=== PATIENT | male | born 1965 | race Two or more races ===

== ENCOUNTER 2016-11-06 09:48 | Emergency (ER) | payer MEDICAID ==
[~2016-11-06] VITALS: Ht 177.8 cm; Wt 72.6 kg
[~2016-11-06 09:48] MED LIST: AMIT100T2 PO; CHOL20007 OR; GABA300C8 PO; LORA1TAB12 PO; NORT25CA PO; OXC300T PO; PANT1INJ3 PO; TRAM50TA2 PO
[2016-11-06] MEDS ORDERED: LORazepam 2MG/ML-1ML VIAL ONE (09:57)
[2016-11-06] MEDS ORDERED: LORazepam 2MG/ML-1ML VIAL IV ONE (10:15)
[2016-11-06 10:24] LABS: Basophils # (auto) 0 uL; Basophils % (auto) 0.6 % (0.0-2.0); Eosinophils # (auto) 0 uL; Hematocrit 42.4 % (41.0-53.0); Lymphocytes # (auto) 0.9 uL; Lymphocytes % (auto) 18.4 % (10.0-50.0); Mean Corpuscular Hemoglobin 31.7 pg (28.0-32.0); Mean Corpuscular Volume 96.1 fL (80.0-100.0); Mean Platelet Volume 6.8 fL (7.4-10.4); Monocytes # (auto) 0.3 uL; Monocytes % (auto) 5.5 % (0.0-12.0); Neutrophils # (auto) 3.7 uL; Neutrophils % (auto) 74.5 % (37.0-80.0); Platelet Count (auto) 437 10^3/uL (140-450); Red Cell Distribution Width 14.4 % (11.6-16.0); White Blood Cell 4.9 10^3/uL (4.4-10.8)
[2016-11-06 10:43] LABS: Albumin 3.3 g/dL (3.4-5.0); BUN/Creatinine Ratio 7.8; Bilirubin, Total 0.3 mg/dL (0.2-1.0); Potassium 4.2 mmol/L (3.5-5.1); Total Protein 7.6 g/dL (6.4-8.2)
[2016-11-06 11:07] VITALS: BP 163/108
== END 2016-11-06 13:21 | disposition home or self-care (01) ==
LOC: ER 09:48 → EDUNIT# 09:48 → ER 13:21
DX: R56.9 Unspecified convulsions (principal); E11.9 Type 2 diabetes mellitus without complications; Z90.89 Acquired absence of other organs; F17.210 Nicotine dependence, cigarettes, uncomplicated
CPT/HCPCS: 36415; 70450; 80053; 82962; 84484; 85025; 93005; 96374; 99285; J2060

== ENCOUNTER 2016-11-28 05:12 | Emergency (ER) | payer MEDICAID ==
[~2016-11-28] VITALS: Ht 177.8 cm; Wt 62.6 kg
[2016-11-28] MEDS ORDERED: ACCU-CHEK COMFORT CURVE STRIP VI ONE (05:30)
[2016-11-28 05:43] LABS: Urine RBC None Seen /hpf (0 - 3)
[2016-11-28 05:56] LABS: Basophils # (auto) 0 uL; Basophils % (auto) 0.4 % (0.0-2.0); Eosinophils # (auto) 0 uL; Eosinophils % (auto) 0.4 % (0.0-7.0); Hematocrit 44.7 % (41.0-53.0); Hemoglobin 14.3 g/dL (13.5-17.5); Lymphocytes # (auto) 0.9 uL; Lymphocytes % (auto) 9.6 % (10.0-50.0); Mean Corpuscular Hemoglobin 31.6 pg (28.0-32.0); Mean Corpuscular Hgb Conc. 32.1 g/dL (32.0-36.0); Mean Corpuscular Volume 98.3 fL (80.0-100.0); Mean Platelet Volume 7.3 fL (7.4-10.4); Monocytes # (auto) 0.5 uL; Monocytes % (auto) 5.3 % (0.0-12.0); Neutrophils # (auto) 7.5 uL; Neutrophils % (auto) 84.3 % (37.0-80.0); Platelet Count (auto) 595 10^3/uL (140-450); Red Cell Distribution Width 14.9 % (11.6-16.0); White Blood Cell 8.9 10^3/uL (4.4-10.8)
[2016-11-28 05:59] LABS: Urine Bilirubin Negative (Negative); Urine Blood Negative /uL (Negative); Urine Color Yellow (Yellow); Urine Ketone Negative (Negative); Urine Nitrite Negative (Negative); Urine Urobilinogen Normal (Negative)
[2016-11-28 06:05] LABS: Urine Glucose 1+ mg/dL (Normal)
[2016-11-28 06:06] LABS: Albumin 3.3 g/dL (3.4-5.0); BUN/Creatinine Ratio 10.3; Calcium 8.8 mg/dL (8.5-10.1); Potassium 3.9 mmol/L (3.5-5.1)
[2016-11-28 06:09] LABS: Bilirubin, Total 0.3 mg/dL (0.2-1.0)
[2016-11-28] MEDS ORDERED: MORPHINE SULFATE 4 MG/ML SYRG IV ONE ×2 (07:00→12:30)
[2016-11-28] MEDS ORDERED: ONDANSETRON HCL 4 MG/2 ML VIAL IV ONE ×2 (07:00→12:30)
[2016-11-28] MEDS ORDERED: PANTOPRAZOLE SODIUM 40 MG/10 ML VIAL IV ONE (07:15)
[2016-11-28] MEDS ORDERED: GABAPENTIN 300 MG CAP PO ONE (07:15)
[2016-11-28] MEDS ORDERED: LABETALOL HCL 5 MG/ML 4ML SYRINGE IV ONE ×2 (07:15→07:18)
[2016-11-28] MEDS: DEXTROSE 10% 1,000 ML IV SCH ×2 (07:40→17:30)
[2016-11-28 18:15] VITALS: BP 131/88
== END 2016-11-28 18:29 | disposition home or self-care (01) ==
LOC: EDBD 05:12 → ER 05:15
DX: E11.649 Type 2 diabetes mellitus with hypoglycemia without coma (principal); E11.42 Type 2 diabetes mellitus with diabetic polyneuropathy; J44.9 Chronic obstructive pulmonary disease, unspecified; I10 Essential (primary) hypertension; E46 Unspecified protein-calorie malnutrition; E78.5 Hyperlipidemia, unspecified; K86.1 Other chronic pancreatitis; F17.210 Nicotine dependence, cigarettes, uncomplicated; Z79.4 Long term (current) use of insulin; Z90.89 Acquired absence of other organs
CPT/HCPCS: 36415; 74176; 80053; 81001; 82150; 82962; 83690; 84484; 85025; 93005; 94761; 96374; 96375; 96376; 99285; C9113; G0434; J2270; J2405; J3490

== ENCOUNTER 2017-04-21 13:23 | Inpatient (IN) | payer MEDICAID, OTHER ==
[~2017-04-21] VITALS: Ht 177.8 cm; Wt 78.3 kg
[~2017-04-21 13:23] MED LIST changes: +GABA-497 PO; -GABA300C8 PO
[2017-04-21 14:10] LABS: Basophils # (auto) 0 uL; Basophils % (auto) 0.2 % (0.0-2.0); CONDITION Y; Eosinophils # (auto) 0 uL; Hematocrit 41.5 % (41.0-53.0); Hemoglobin 14.4 g/dL (13.5-17.5); Lymphocytes % (auto) 8.2 % (10.0-50.0); Mean Corpuscular Hemoglobin 34.6 pg (28.0-32.0); Mean Corpuscular Hgb Conc. 34.7 g/dL (32.0-36.0); Mean Corpuscular Volume 99.7 fL (80.0-100.0); Mean Platelet Volume 7.1 fL (7.4-10.4); Monocytes # (auto) 0.4 uL; Monocytes % (auto) 3.6 % (0.0-12.0); Neutrophils # (auto) 10.2 uL; Platelet Count (auto) 415 10^3/uL (140-450); Red Cell Distribution Width 13.8 % (11.6-16.0); White Blood Cell 11.6 10^3/uL (4.4-10.8)
[2017-04-21 14:24] LABS: Albumin 3.7 g/dL (3.4-5.0); Alkaline Phosphatase 89 U/L (45-117); Anion Gap 15 (5-15); Aspartate Aminotransferase 37 U/L (15-37); Bilirubin, Total 0.9 mg/dL (0.2-1.0); Blood Urea Nitrogen 8 mg/dL (7-18); Calcium 8.5 mg/dL (8.5-10.1); Carbon Dioxide 19 mmol/L (21-32); Chloride 78 mmol/L (98-107); GFR African American 145 mL/min; GFR Non-African American 120 mL/min; Glucose 269 mg/dL (74-106); Magnesium 1.2 mg/dL (1.6-2.6); Potassium 4.3 mmol/L (3.5-5.1); Total Protein 7.8 g/dL (6.4-8.2)
[2017-04-21 14:27] LABS: Sodium 112 mmol/L (136-145)
[2017-04-21] MEDS ORDERED: ONDANSETRON HCL 4 MG/2 ML VIAL ONE (14:32)
[2017-04-21] MEDS ORDERED: SODIUM CHLORIDE 0.9% 1,000 ML IVB ONE (14:37)
[2017-04-21] MEDS ORDERED: SODIUM CHL 3% 500 ML IV ONE (14:45)
[2017-04-21] MEDS ORDERED: SODIUM CHLORIDE 0.9% 1,000 ML IV ONE (14:45)
[2017-04-21] MEDS ORDERED: ONDANSETRON HCL 4 MG/2 ML VIAL IV ONE ×2 (14:45)
[2017-04-21] MEDS ORDERED: TEMAZEPAM 15 MG CAP PO PRN (15:00)
[2017-04-21] MEDS ORDERED: cefTRIAXone 1GM/50ML D5W 50 ML IV ONE (15:00)
[2017-04-21] MEDS ORDERED: NITROGLYCERIN 0.4 MG SL TAB SL PRN (15:00)
[2017-04-21] MEDS ORDERED: PROMETHAZINE HCL 25 MG/ML 1ML IV PRN (15:00)
[2017-04-21] MEDS ORDERED: LORazepam 2MG/ML-1ML VIAL IV PRN (15:00)
[2017-04-21] MEDS ORDERED: MORPHINE SULF INJ 2 MG/ML SYRINGE 1ML IV PRN (15:00)
[2017-04-21] MEDS ORDERED: THIAMINE HCL 100 MG/ML 2ML VIAL IV ONE (15:00)
[2017-04-21] MEDS ORDERED: HYDROcodone-ACET 5/325MG TAB PO PRN (15:00)
[2017-04-21] MEDS ORDERED: DEXTROSE (50%) 50ML SYRG IV PRN (15:00)
[2017-04-21] MEDS ORDERED: ACETAMINOPHEN 500 MG TAB PO PRN (15:00)
[2017-04-21 15:15] LABS: INR 1.03 (0.9-1.15); Partial Thromboplastin Time 28.3 sec (22.64-33.71); Prothrombin Time 11.2 sec (9.37-12.3)
[2017-04-21 15:28] LABS: Urine Bilirubin Negative (Negative); Urine Blood Negative /uL (Negative); Urine Color Yellow (Yellow); Urine Nitrite Negative (Negative); Urine RBC <1 /hpf (0 - 3); Urine Urobilinogen Normal (Negative); Urine pH 7.5 (5.0-8.0)
[2017-04-21 15:32] LABS: Urine Glucose 4+ mg/dL (Normal); Urine Ketone 2+ (Negative)
[2017-04-21] MEDS: FAMOTIDINE (10MG/ML) 2ML VL IV SCH (16:05)
[2017-04-21] MEDS: SODIUM CHLORIDE 0.9% 1,000 ML IV SCH ×3 (16:49→22:26)
[2017-04-21] MEDS: metroNIDAZOLE 500MG/100ML 100 ML IV SCH ×2 (16:49→22:21)
[2017-04-21] MEDS: ACCU-CHEK COMFORT CURVE STRIP VI SCH ×2 (16:59→20:00)
[2017-04-21] MEDS: InsuLIN REG 1unit/0.01ml Soln (100units/ml) SC SCH ×2 (17:05→20:00)
[2017-04-21] MEDS: MAGNESIUM SULFATE 1GM/100ML 100 ML IV SCH ×2 (17:08→18:48)
[2017-04-21] MEDS: MORPHINE SULF INJ 2 MG/ML SYRINGE 1ML IV PRN (18:18)
[2017-04-21] MEDS: chlordiazePOXIDE HCL 5 MG CAP PO SCH (18:49)
[2017-04-21 20:45] LABS: Albumin 2.9 g/dL (3.4-5.0); BUN/Creatinine Ratio 11.3; Calcium 7.4 mg/dL (8.5-10.1); Potassium 3.3 mmol/L (3.5-5.1)
[2017-04-21 20:56] LABS: Bilirubin, Total 0.5 mg/dL (0.2-1.0); Total Protein 6.4 g/dL (6.4-8.2)
[2017-04-22] VITALS (8 sets, daily range): BP systolic 60–154; BP diastolic 58–92
[2017-04-22] MEDS: ACCU-CHEK COMFORT CURVE STRIP VI SCH ×6 (00:23→20:24)
[2017-04-22] MEDS: MORPHINE SULF INJ 2 MG/ML SYRINGE 1ML IV PRN ×5 (02:21→20:25)
[2017-04-22] MEDS: SODIUM CHLORIDE 0.9% 1,000 ML IV SCH ×2 (02:21→21:45)
[2017-04-22] MEDS: FAMOTIDINE (10MG/ML) 2ML VL IV SCH ×2 (02:55→13:21)
[2017-04-22] MEDS: metroNIDAZOLE 500MG/100ML 100 ML IV SCH ×2 (03:43→09:28)
[2017-04-22] MEDS: InsuLIN REG 1unit/0.01ml Soln (100units/ml) SC SCH ×6 (03:43→20:24)
[2017-04-22] MEDS: chlordiazePOXIDE HCL 5 MG CAP PO SCH ×4 (05:25→17:21)
[2017-04-22 05:30] LABS: Basophils # (auto) 0 uL; Basophils % (auto) 0.4 % (0.0-2.0); CONDITION Y; Eosinophils # (auto) 0.1 uL; Eosinophils % (auto) 1.5 % (0.0-7.0); Hematocrit 36.8 % (41.0-53.0); Hemoglobin 12.7 g/dL (13.5-17.5); Lymphocytes # (auto) 1.2 uL; Lymphocytes % (auto) 15.1 % (10.0-50.0); Mean Corpuscular Hemoglobin 34.7 pg (28.0-32.0); Mean Corpuscular Hgb Conc. 34.4 g/dL (32.0-36.0); Mean Corpuscular Volume 100.9 fL (80.0-100.0); Monocytes # (auto) 0.5 uL; Monocytes % (auto) 6.3 % (0.0-12.0); Neutrophils # (auto) 6.2 uL; Neutrophils % (auto) 76.7 % (37.0-80.0); Platelet Count (auto) 384 10^3/uL (140-450); Red Cell Distribution Width 13.7 % (11.6-16.0); White Blood Cell 8.1 10^3/uL (4.4-10.8)
[2017-04-22 06:01] LABS: Albumin 2.8 g/dL (3.4-5.0); BUN/Creatinine Ratio 10.3; Bilirubin, Total 0.4 mg/dL (0.2-1.0); Calcium 7.3 mg/dL (8.5-10.1)
[2017-04-22 06:28] LABS: Potassium 2.8 mmol/L (3.5-5.1)
[2017-04-22] MEDS ORDERED: cefTRIAXone 1GM/50ML D5W 50 ML IV SCH (09:00)
[2017-04-22] MEDS: THIAMINE HCL 100 MG/ML 2ML VIAL IV SCH (09:28)
[2017-04-22] MEDS ORDERED: POTASSIUM CHL 20 Meq TABLET PO ONE (15:15)
[2017-04-22] MEDS: MAGNESIUM SULFATE 1GM/100ML 100 ML IV SCH ×2 (15:49→17:21)
[2017-04-23] MEDS: ACCU-CHEK COMFORT CURVE STRIP VI SCH ×4 (00:22→12:00)
[2017-04-23] MEDS: chlordiazePOXIDE HCL 5 MG CAP PO SCH ×3 (00:23→12:18)
[2017-04-23] MEDS: MORPHINE SULF INJ 2 MG/ML SYRINGE 1ML IV PRN ×3 (00:23→08:36)
[2017-04-23] MEDS: InsuLIN REG 1unit/0.01ml Soln (100units/ml) SC SCH ×4 (04:00→12:00)
[2017-04-23] MEDS: FAMOTIDINE (10MG/ML) 2ML VL IV SCH (04:05)
[2017-04-23 05:00] VITALS: BP 139/82
[2017-04-23 06:37] LABS: Basophils # (auto) 0 uL; Basophils % (auto) 0.6 % (0.0-2.0); CONDITION Y; Eosinophils # (auto) 0.1 uL; Eosinophils % (auto) 1.5 % (0.0-7.0); Hematocrit 38.3 % (41.0-53.0); Hemoglobin 13.1 g/dL (13.5-17.5); Lymphocytes % (auto) 16.3 % (10.0-50.0); Mean Corpuscular Hemoglobin 34.7 pg (28.0-32.0); Mean Corpuscular Hgb Conc. 34.3 g/dL (32.0-36.0); Mean Corpuscular Volume 101.4 fL (80.0-100.0); Mean Platelet Volume 7.2 fL (7.4-10.4); Monocytes # (auto) 0.5 uL; Monocytes % (auto) 7.7 % (0.0-12.0); Neutrophils # (auto) 4.5 uL; Neutrophils % (auto) 73.9 % (37.0-80.0); Platelet Count (auto) 382 10^3/uL (140-450); Red Cell Distribution Width 13.9 % (11.6-16.0)
[2017-04-23 07:14] LABS: BUN/Creatinine Ratio 12.7; Calcium 8.6 mg/dL (8.5-10.1); Potassium 4.9 mmol/L (3.5-5.1)
[2017-04-23] MEDS: SODIUM CHLORIDE 0.9% 1,000 ML IV SCH (07:45)
[2017-04-23 09:02] VITALS: BP 132/77
[2017-04-23] MEDS ORDERED: SUCR1TAB38 PO (09:38)
[2017-04-23] MEDS ORDERED: OMEP20CA74 PO (09:38)
[2017-04-23] MEDS: THIAMINE HCL 100 MG/ML 2ML VIAL IV SCH (10:00)
[2017-04-23 11:07] VITALS: BP 132/77
[2017-04-23] MEDS ORDERED: IBUP600T27 PO (12:07)
[2017-04-23] MEDS ORDERED: GAB100C PO (12:07)
[2017-04-23 14:08] LABS: Temperature: 24.1 C (20.0-25.0)
[2017-04-26 11:08] LABS: Vitamin B1, Whole Blood 240.4 nmol/L (66.5-200.0)
== END 2017-04-23 13:10 | disposition home or self-care (01) | DRG 425 ==
LOC: ER 13:32 → TELE 13:33 → EDUNIT# 13:33 → TELE-WESTW 04-22 02:11
PROVIDERS: ADMIT Internal Medicine; ATTEND Hospitalist
DX: E87.1 Hypo-osmolality and hyponatremia (principal); E10.42 Type 1 diabetes mellitus with diabetic polyneuropathy; E10.65 Type 1 diabetes mellitus with hyperglycemia; K21.9 Gastro-esophageal reflux disease without esophagitis; E83.42 Hypomagnesemia; F10.20 Alcohol dependence, uncomplicated; F17.210 Nicotine dependence, cigarettes, uncomplicated; K29.00 Acute gastritis without bleeding; T50.2X5A Adverse effect of carbonic-anhydrase inhibitors, benzothiadiazides and other diuretics, initial encounter; Z79.4 Long term (current) use of insulin; Z82.49 Family history of ischemic heart disease and other diseases of the circulatory system; Z83.3 Family history of diabetes mellitus; Z71.89 Other specified counseling
CPT/HCPCS: 36415; 70450; 71010; 80048; 80053; 80061; 80320; 81001; 82150; 82607; 82746; 82962; 83036; 83690; 83735; 84295; 84425; 84443; 84484; 85025; 85610; 85652; 85730; 86141; 86592; 87086; 93005; 93306; 94761; 96361; 96365; 96367; 96375; J0696; J1815; J2405; J3490

== ENCOUNTER 2017-08-26 03:49 | Inpatient (IN) | payer MEDICAID ==
[~2017-08-26] VITALS: Ht 177.8 cm; Wt 77.4 kg
[~2017-08-26 03:49] MED LIST changes: +GAB100C PO; +IBUP600T27 PO; -NORT25CA PO; -OXC300T PO; +SUCR1TAB38 PO
[2017-08-26] MEDS ORDERED: cloNIDine HCL 0.1 MG TAB ONE ×2 (06:52→06:56)
[2017-08-26 07:12] LABS: Urine Bacteria NONE SEEN /hpf (None Seen); Urine Blood Negative /uL (Negative); Urine Specific Gravity 1.007 (1.001-1.035); Urine WBC <1 /hpf (0 - 3)
[2017-08-26 07:15] LABS: Basophils # (auto) 0.1 uL; Eosinophils # (auto) 0.1 uL; Lymphocytes # (auto) 1.1 uL; Lymphocytes % (auto) 17.6 % (10.0-50.0); Monocytes # (auto) 0.4 uL; Neutrophils # (auto) 4.7 uL
[2017-08-26] MEDS ORDERED: cloNIDine HCL 0.1 MG TAB PO ONE (07:15)
[2017-08-26 07:23] LABS: Eosinophils % (auto) 1.9 % (0.0-7.0); Hematocrit 43.6 % (41.0-53.0); Mean Corpuscular Hemoglobin 34.5 pg (28.0-32.0); Mean Corpuscular Hgb Conc. 34.4 g/dL (32.0-36.0); Mean Corpuscular Volume 100.2 fL (80.0-100.0); Monocytes % (auto) 6.7 % (0.0-12.0); Neutrophils % (auto) 72.8 % (37.0-80.0); Nucleated Red Blood Cells % 0.1 %; Platelet Count (auto) 353 10^3/uL (140-450); Red Blood Cells 4.35 10^6/uL (4.5-5.90); White Blood Cell 6.4 10^3/uL (4.4-10.8)
[2017-08-26 08:02] LABS: Alcohol, Urine < 3.0 mg/dL (0-5); Amphetamine Screen, Urine NEGATIVE (NEGATIVE); Barbiturate Scree,Urine NEGATIVE (NEGATIVE); Benzodiazephine Screen, Urine NEGATIVE (NEGATIVE); Cannabinoid Screen, Urine NEGATIVE (NEGATIVE); Cocaine Screen, Urine NEGATIVE (NEGATIVE); Opiate Scree,Urine NEGATIVE (NEGATIVE); Phencyclidine Screen, Urine NEGATIVE (NEGATIVE)
[2017-08-26 08:10] LABS: Alanine Aminotransferase 39 U/L (16-61); Albumin 3.8 g/dL (3.4-5.0); Alkaline Phosphatase 81 U/L (45-117); Anion Gap 10 (5-15); Aspartate Aminotransferase 34 U/L (15-37); BUN/Creatinine Ratio 15.7; Bilirubin, Total 0.3 mg/dL (0.2-1.0); Blood Alcohol < 3.0 mg/dL (0-5); Blood Urea Nitrogen 14 mg/dL (7-18); Calcium 9.1 mg/dL (8.5-10.1); Carbon Dioxide 24 mmol/L (21-32); Chloride 106 mmol/L (98-107); GFR African American 115 mL/min; GFR Non-African American 95 mL/min; Glucose 182 mg/dL (74-106); Potassium 4.2 mmol/L (3.5-5.1); Sodium 140 mmol/L (136-145); Total Protein 8.3 g/dL (6.4-8.2)
[2017-08-26] MEDS ORDERED: TETANUS-DIPTH-ACEL PERTUSSIS 0.5ML SYRG IM ONE (09:15)
[2017-08-26] MEDS ORDERED: LABETALOL HCL 5 MG/ML 4ML SYRINGE IV ONE (10:00)
[2017-08-26] MEDS ORDERED: LABETALOL HCL 5 MG/ML ML 20ML VIAL IV ONE (10:15)
[2017-08-26] MEDS ORDERED: DOCUSATE SOD 100 MG CAP PO PRN (15:00)
[2017-08-26] MEDS ORDERED: PANTOPRAZOLE 40 MG TAB PO ONE ×2 (15:00→15:30)
[2017-08-26] MEDS ORDERED: HYDROmorphone HCL 2 MG/ML VL IV PRN (15:00)
[2017-08-26] MEDS ORDERED: GABAPENTIN 300 MG CAP PO ONE (15:00)
[2017-08-26] MEDS ORDERED: ACETAMINOPHEN 325 MG TAB PO PRN (15:00)
[2017-08-26] MEDS ORDERED: chlordiazePOXIDE HCL 25 MG CAP PO PRN (15:00)
[2017-08-26] MEDS ORDERED: ONDANSETRON HCL 4 MG/2 ML VIAL IV PRN (15:00)
[2017-08-26] MEDS ORDERED: THIAMINE INJ 100 MG, MULTIPLE VITAMIN 10 ML, FOLIC ACID 1 MG, MAGNESIUM SULF SDV 50% 8 ... IV SCH ×5 (15:00)
[2017-08-26] MEDS ORDERED: MORPHINE SULFATE 10 MG/ML INJ 1ML SDV IV PRN (15:00)
[2017-08-26] MEDS ORDERED: HYDROcodone-ACET 5/325MG TAB PO PRN (15:00)
[2017-08-26] MEDS ORDERED: LORazepam 2MG/ML-1ML VIAL IV PRN (15:00)
[2017-08-26] MEDS ORDERED: cloNIDine HCL 0.1 MG TAB PO PRN (15:00)
[2017-08-26] MEDS ORDERED: NITROGLYCERIN 0.4 MG SL TAB SL PRN (15:00)
[2017-08-26] MEDS ORDERED: IBUPROFEN 800 MG TAB PO PRN (15:00)
[2017-08-26] MEDS ORDERED: DEXTROSE (50%) 50ML SYRG IV PRN (15:00)
[2017-08-26] MEDS ORDERED: TEMAZEPAM 15 MG CAP PO PRN (15:00)
[2017-08-26] MEDS ORDERED: ALUM & MAG HYDROX-SIMETH LIQ(MAALOX) 30 ML PO PRN (15:15)
[2017-08-26] MEDS ORDERED: ATENOLOL 25 MG TAB PO ONE ×2 (15:15→15:30)
[2017-08-26] MEDS ORDERED: FAMOTIDINE 20 MG TAB PO ONE (15:30)
[2017-08-26] MEDS ORDERED: CHOLECALCIFEROL (VITD3) 1,000 UNIT TAB PO ONE (15:30)
[2017-08-26] MEDS ORDERED: MULTIPLE VITAMIN TAB PO ONE (15:30)
[2017-08-26] MEDS: LORazepam 0.5 MG TAB PO PRN (16:20)
[2017-08-26] MEDS: SUCRALFATE 1 GM TAB PO SCH ×2 (17:00→22:45)
[2017-08-26] MEDS: ACCU-CHEK COMFORT CURVE STRIP VI SCH ×2 (17:40→22:00)
[2017-08-26] MEDS: SODIUM CHLORIDE 0.9% 1,000 ML IV SCH ×2 (17:40→23:17)
[2017-08-26] MEDS: InsuLIN REG 1unit/0.01ml Soln (100units/ml) SC SCH ×2 (17:40→22:00)
[2017-08-26 18:36] VITALS: BP 128/76
[2017-08-26] MEDS ORDERED: AMIT25TA9 PO (19:13)
[2017-08-26] MEDS ORDERED: IBUP600T27 PO (19:13)
[2017-08-26] MEDS ORDERED: OMEP20CA74 PO (19:13)
[2017-08-26] MEDS ORDERED: OXCA600T3 PO (19:13)
[2017-08-26] MEDS ORDERED: GABA-339 PO (19:13)
[2017-08-26] MEDS ORDERED: CIPR-217 PO (19:13)
[2017-08-26] MEDS ORDERED: [UNRECOGNIZED DRUG - CODE] EX (19:13)
[2017-08-26] MEDS ORDERED: LORA-654 PO (19:14)
[2017-08-26 21:43] VITALS: BP 150/96
[2017-08-26] MEDS: ATENOLOL 25 MG TAB PO SCH (22:44)
[2017-08-26] MEDS: FAMOTIDINE 20 MG TAB PO SCH (22:45)
[2017-08-26] MEDS: GABAPENTIN 300 MG CAP PO SCH (22:45)
[2017-08-26] MEDS: AMITRIPTYLINE HCL 25 MG TAB PO SCH (22:45)
[2017-08-27 04:58] VITALS: BP 116/70
[2017-08-27] MEDS: GABAPENTIN 300 MG CAP PO SCH ×3 (06:25→22:04)
[2017-08-27] MEDS: InsuLIN REG 1unit/0.01ml Soln (100units/ml) SC SCH ×4 (06:25→22:22)
[2017-08-27] MEDS: ACCU-CHEK COMFORT CURVE STRIP VI SCH ×4 (06:25→22:22)
[2017-08-27] MEDS: SUCRALFATE 1 GM TAB PO SCH ×4 (06:25→22:21)
[2017-08-27] MEDS: traMADol HCL 50 MG TAB PO PRN ×3 (06:26→22:05)
[2017-08-27 07:16] LABS: Basophils # (auto) 0.1 uL; Eosinophils # (auto) 0.1 uL; Eosinophils % (auto) 2.3 % (0.0-7.0); Hematocrit 38.7 % (41.0-53.0); Hemoglobin 12.9 g/dL (13.5-17.5); Lymphocytes # (auto) 1.9 uL; Mean Corpuscular Hemoglobin 33.4 pg (28.0-32.0); Mean Corpuscular Hgb Conc. 33.3 g/dL (32.0-36.0); Mean Corpuscular Volume 100.2 fL (80.0-100.0); Monocytes # (auto) 0.6 uL; Monocytes % (auto) 10.3 % (0.0-12.0); Neutrophils # (auto) 3.5 uL; Neutrophils % (auto) 56.4 % (37.0-80.0); Nucleated Red Blood Cells % 0.1 %; Platelet Count (auto) 362 10^3/uL (140-450); Red Blood Cells 3.86 10^6/uL (4.5-5.90); Red Cell Distribution Width 14.1 % (11.8-14.3); White Blood Cell 6.2 10^3/uL (4.4-10.8)
[2017-08-27 07:37] LABS: Bilirubin, Total 0.4 mg/dL (0.2-1.0); Calcium 8.2 mg/dL (8.5-10.1); Potassium 4.1 mmol/L (3.5-5.1); Total Protein 6.8 g/dL (6.4-8.2)
[2017-08-27] MEDS: SODIUM CHLORIDE 0.9% 1,000 ML IV SCH ×2 (08:01→17:08)
[2017-08-27 09:42] VITALS: BP 132/88
[2017-08-27] MEDS: FAMOTIDINE 20 MG TAB PO SCH ×2 (09:49→22:05)
[2017-08-27] MEDS: MULTIPLE VITAMIN TAB PO SCH (09:49)
[2017-08-27] MEDS: PANTOPRAZOLE 40 MG TAB PO SCH (09:49)
[2017-08-27] MEDS: CHOLECALCIFEROL (VITD3) 1,000 UNIT TAB PO SCH (09:50)
[2017-08-27] MEDS: ATENOLOL 25 MG TAB PO SCH ×2 (10:00→22:22)
[2017-08-27 12:12] VITALS: BP 144/88
[2017-08-27 16:03] VITALS: BP 133/89
[2017-08-27 20:00] VITALS: BP 144/97
[2017-08-27 22:00] VITALS: BP 144/97
[2017-08-27] MEDS: AMITRIPTYLINE HCL 25 MG TAB PO SCH (22:04)
[2017-08-28] MEDS: SODIUM CHLORIDE 0.9% 1,000 ML IV SCH ×3 (00:06→17:01)
[2017-08-28 05:00] VITALS: BP 156/92
[2017-08-28] MEDS: GABAPENTIN 300 MG CAP PO SCH ×3 (05:44→23:24)
[2017-08-28] MEDS: traMADol HCL 50 MG TAB PO PRN ×3 (05:51→23:24)
[2017-08-28] MEDS: SUCRALFATE 1 GM TAB PO SCH ×4 (06:05→23:25)
[2017-08-28] MEDS: InsuLIN REG 1unit/0.01ml Soln (100units/ml) SC SCH ×4 (06:05→22:00)
[2017-08-28] MEDS: ACCU-CHEK COMFORT CURVE STRIP VI SCH ×4 (06:05→22:00)
[2017-08-28 09:00] VITALS: BP 149/96
[2017-08-28] MEDS: CHOLECALCIFEROL (VITD3) 1,000 UNIT TAB PO SCH (10:00)
[2017-08-28] MEDS: ATENOLOL 25 MG TAB PO SCH ×2 (10:00→23:29)
[2017-08-28] MEDS: PANTOPRAZOLE 40 MG TAB PO SCH (10:00)
[2017-08-28] MEDS: MULTIPLE VITAMIN TAB PO SCH (10:00)
[2017-08-28] MEDS: FAMOTIDINE 20 MG TAB PO SCH ×2 (10:00→23:25)
[2017-08-28 13:00] VITALS: BP 160/87
[2017-08-28] MEDS ORDERED: OXcarbazepine 300 MG TAB PO ONE (15:00)
[2017-08-28 17:05] VITALS: BP 157/92
[2017-08-28 22:00] VITALS: BP 171/98
[2017-08-28] MEDS: AMITRIPTYLINE HCL 25 MG TAB PO SCH (23:23)
[2017-08-28] MEDS: OXcarbazepine 300 MG TAB PO SCH (23:24)
[2017-08-29] MEDS: SODIUM CHLORIDE 0.9% 1,000 ML IV SCH ×3 (01:06→18:31)
[2017-08-29] MEDS: traMADol HCL 50 MG TAB PO PRN ×4 (02:53→22:00)
[2017-08-29 05:00] VITALS: BP 170/99
[2017-08-29] MEDS: GABAPENTIN 300 MG CAP PO SCH ×3 (06:27→21:53)
[2017-08-29] MEDS: SUCRALFATE 1 GM TAB PO SCH ×4 (06:50→21:53)
[2017-08-29] MEDS: InsuLIN REG 1unit/0.01ml Soln (100units/ml) SC SCH ×4 (06:58→22:00)
[2017-08-29] MEDS: ACCU-CHEK COMFORT CURVE STRIP VI SCH ×4 (07:00→22:00)
[2017-08-29 09:00] VITALS: BP 172/99
[2017-08-29] MEDS: MULTIPLE VITAMIN TAB PO SCH (09:19)
[2017-08-29] MEDS: CHOLECALCIFEROL (VITD3) 1,000 UNIT TAB PO SCH (09:19)
[2017-08-29] MEDS: PANTOPRAZOLE 40 MG TAB PO SCH (09:19)
[2017-08-29] MEDS: FAMOTIDINE 20 MG TAB PO SCH ×2 (09:20→21:53)
[2017-08-29] MEDS: OXcarbazepine 300 MG TAB PO SCH ×2 (09:21→21:55)
[2017-08-29] MEDS: ATENOLOL 25 MG TAB PO SCH ×2 (09:21→21:54)
[2017-08-29] MEDS ORDERED: LISINOPRIL 10 MG TAB PO ONE (11:45)
[2017-08-29 13:00] VITALS: BP 178/104
[2017-08-29] MEDS: LORazepam 0.5 MG TAB PO PRN (18:31)
[2017-08-29 21:54] VITALS: BP 126/77
[2017-08-29] MEDS: AMITRIPTYLINE HCL 25 MG TAB PO SCH (21:55)
[2017-08-30] MEDS: SODIUM CHLORIDE 0.9% 1,000 ML IV SCH ×2 (02:16→11:46)
[2017-08-30 04:36] VITALS: BP 150/88
[2017-08-30] MEDS: GABAPENTIN 300 MG CAP PO SCH (06:06)
[2017-08-30] MEDS: traMADol HCL 50 MG TAB PO PRN ×2 (06:18→12:13)
[2017-08-30] MEDS: InsuLIN REG 1unit/0.01ml Soln (100units/ml) SC SCH ×2 (06:38→11:46)
[2017-08-30] MEDS: SUCRALFATE 1 GM TAB PO SCH ×2 (06:41→11:46)
[2017-08-30] MEDS: ACCU-CHEK COMFORT CURVE STRIP VI SCH ×2 (06:41→11:47)
[2017-08-30 09:00] VITALS: BP 172/100
[2017-08-30] MEDS: OXcarbazepine 300 MG TAB PO SCH (09:44)
[2017-08-30] MEDS: ATENOLOL 25 MG TAB PO SCH (09:45)
[2017-08-30] MEDS: PANTOPRAZOLE 40 MG TAB PO SCH (09:45)
[2017-08-30] MEDS: FAMOTIDINE 20 MG TAB PO SCH (09:45)
[2017-08-30] MEDS: CHOLECALCIFEROL (VITD3) 1,000 UNIT TAB PO SCH (09:45)
[2017-08-30] MEDS: MULTIPLE VITAMIN TAB PO SCH (09:45)
[2017-08-30] MEDS: LORazepam 0.5 MG TAB PO PRN (09:46)
[2017-08-30] MEDS ORDERED: LISINOPRIL 10 MG TAB PO SCH (10:00)
[2017-08-30] MEDS ORDERED: THIAMINE HCL 100 MG TAB PO SCH (10:27)
[2017-08-30 11:57] VITALS: BP 172/100
[2017-08-30 13:00] VITALS: BP 160/100
[2017-09-04] MEDS ORDERED: THIAMINE HCL 100 MG TAB PO SCH (10:00)
== END 2017-08-30 13:54 | disposition home or self-care (01) | DRG 52 ==
LOC: EDBD 03:49 → ER 03:51 → TELE 03:52 → TELE-CENTR 19:20
PROVIDERS: ADMIT Internal Medicine; ATTEND Internal Medicine Pulmonary Disease
DX: G93.41 Metabolic encephalopathy (principal); F10.231 Alcohol dependence with withdrawal delirium; G40.509 Epileptic seizures related to external causes, not intractable, without status epilepticus; J44.9 Chronic obstructive pulmonary disease, unspecified; E11.65 Type 2 diabetes mellitus with hyperglycemia; F17.210 Nicotine dependence, cigarettes, uncomplicated; K21.9 Gastro-esophageal reflux disease without esophagitis; F10.21 Alcohol dependence, in remission; I10 Essential (primary) hypertension; Z82.49 Family history of ischemic heart disease and other diseases of the circulatory system; Z83.3 Family history of diabetes mellitus; Z79.899 Other long term (current) drug therapy; Z90.89 Acquired absence of other organs
CPT/HCPCS: 36415; 70450; 80053; 80307; 80320; 81001; 82607; 82962; 83036; 83735; 84443; 84484; 85025; 90715; 93005; 96372; 96374; J1815

== ENCOUNTER 2017-10-19 12:38 | Emergency (ER) | payer MEDICAID ==
[~2017-10-19] VITALS: Ht 177.8 cm; Wt 75.3 kg
[~2017-10-19 12:38] MED LIST changes: -AMIT100T2 PO; +AMIT25TA9 PO; +CIPR-217 PO; +GABA-339 PO; -GABA-497 PO; +LORA-654 PO; -LORA1TAB12 PO; +OMEP20CA74 PO; +OXCA600T3 PO; +[UNRECOGNIZED DRUG - CODE] EX
[2017-10-19] MEDS ORDERED: SODIUM CHLORIDE 0.9% 1,000 ML IV ONE (13:30)
[2017-10-19 13:55] LABS: Basophils # (auto) 0.1 uL; Basophils % (auto) 0.7 % (0.0-2.0); Eosinophils # (auto) 0.1 uL; Eosinophils % (auto) 1.2 % (0.0-7.0); Hematocrit 40.1 % (41.0-53.0); Hemoglobin 13.5 g/dL (13.5-17.5); Lymphocytes # (auto) 1.4 uL; Lymphocytes % (auto) 16.9 % (10.0-50.0); Mean Corpuscular Hgb Conc. 33.7 g/dL (32.0-36.0); Mean Corpuscular Volume 97.9 fL (80.0-100.0); Mean Platelet Volume 6.5 fL (6.9-10.8); Monocytes # (auto) 0.6 uL; Monocytes % (auto) 7.1 % (0.0-12.0); Neutrophils # (auto) 6.2 uL; Neutrophils % (auto) 74.1 % (37.0-80.0); Nucleated Red Blood Cells % 0.1 %; Platelet Count (auto) 349 10^3/uL (140-450); Red Cell Distribution Width 12.8 % (11.8-14.3); White Blood Cell 8.4 10^3/uL (4.4-10.8)
[2017-10-19 14:14] LABS: Albumin 3.3 g/dL (3.4-5.0); BUN/Creatinine Ratio 11.1; Bilirubin, Total 0.4 mg/dL (0.2-1.0); Calcium 8.7 mg/dL (8.5-10.1); Potassium 4.5 mmol/L (3.5-5.1); Total Protein 7.3 g/dL (6.4-8.2)
[2017-10-19 16:54] LABS: Urine Bilirubin Negative (Negative); Urine Blood Negative /uL (Negative); Urine Glucose Normal (Normal); Urine Ketone Negative (Negative); Urine Nitrite Negative (Negative); Urine RBC <1 /hpf (0 - 3); Urine Urobilinogen Normal (Negative)
[2017-10-19 16:55] LABS: Urine Color Straw (Yellow)
[2017-10-19] MEDS ORDERED: LORazepam 2MG/ML-1ML VIAL IV ONE (17:00)
[2017-10-19] MEDS ORDERED: chlordiazePOXIDE HCL 25 MG CAP PO ONE (17:30)
[2017-10-19 18:08] VITALS: BP 140/92
== END 2017-10-19 19:25 | disposition home or self-care (01) ==
LOC: ER 12:38 → EDBD 12:38 → ER 19:25
DX: F10.239 Alcohol dependence with withdrawal, unspecified (principal); E11.9 Type 2 diabetes mellitus without complications; I10 Essential (primary) hypertension; K21.9 Gastro-esophageal reflux disease without esophagitis; F17.210 Nicotine dependence, cigarettes, uncomplicated; Z83.3 Family history of diabetes mellitus; Y90.0 Blood alcohol level of less than 20 mg/100 ml
CPT/HCPCS: 36415; 70450; 80053; 80320; 81001; 85025; 94761; 96361; 96374; 99285; J2060; J7030

== ENCOUNTER 2017-11-15 13:34 | Inpatient (IN) | payer MEDICAID ==
[~2017-11-15] VITALS: Ht 177.8 cm; Wt 72.0 kg
[~2017-11-15 13:34] MED LIST changes: +INSUINJ37 SUBCUT
[2017-11-15] MEDS ORDERED: SODIUM CHLORIDE 0.9% 1,000 ML IVB ONE (13:57)
[2017-11-15 14:32] LABS: Basophils # (auto) 0.1 uL; Basophils % (auto) 0.8 % (0.0-2.0); Eosinophils # (auto) 0 uL; Eosinophils % (auto) 0.2 % (0.0-7.0); Hematocrit 41.6 % (41.0-53.0); Hemoglobin 14.3 g/dL (13.5-17.5); Lymphocytes # (auto) 1.9 uL; Lymphocytes % (auto) 13.7 % (10.0-50.0); Mean Corpuscular Hemoglobin 32.5 pg (28.0-32.0); Mean Corpuscular Hgb Conc. 34.5 g/dL (32.0-36.0); Mean Corpuscular Volume 94.2 fL (80.0-100.0); Monocytes # (auto) 0.9 uL; Monocytes % (auto) 6.5 % (0.0-12.0); Neutrophils # (auto) 10.6 uL; Neutrophils % (auto) 78.8 % (37.0-80.0); Platelet Count (auto) 376 10^3/uL (140-450); Red Blood Cells 4.41 10^6/uL (4.5-5.90); Red Cell Distribution Width 12.8 % (11.8-14.3); White Blood Cell 13.5 10^3/uL (4.4-10.8)
[2017-11-15 14:58] LABS: Albumin 3.3 g/dL (3.4-5.0); BUN/Creatinine Ratio 22.5; Bilirubin, Total 0.5 mg/dL (0.2-1.0); Calcium 8.5 mg/dL (8.5-10.1); Magnesium 2.2 mg/dL (1.6-2.6); Potassium 4.1 mmol/L (3.5-5.1); Total Protein 7.7 g/dL (6.4-8.2)
[2017-11-15 15:09] LABS: Acetaminophen < 2.0 ug/mL (10-30); Salicylate < 1.7 mg/dL (2.8-20.0)
[2017-11-15] MEDS ORDERED: ACETAMINOPHEN 500 MG TAB PO PRN (17:15)
[2017-11-15] MEDS ORDERED: MORPHINE SULFATE 10 MG/ML INJ 1ML SDV IV PRN (17:15)
[2017-11-15] MEDS ORDERED: NITROGLYCERIN 0.4 MG SL TAB SL PRN (17:15)
[2017-11-15] MEDS ORDERED: LACTULOSE 20Gm/30ML SOLN PO PRN (17:15)
[2017-11-15] MEDS ORDERED: PROMETHAZINE HCL 25 MG/ML 1ML IV PRN (17:15)
[2017-11-15] MEDS ORDERED: DEXTROSE (50%) 50ML SYRG IV PRN (17:15)
[2017-11-15] MEDS: ACCU-CHEK COMFORT CURVE STRIP VI SCH (17:57)
[2017-11-15] MEDS: InsuLIN REG 1unit/0.01ml Soln (100units/ml) SC SCH (17:57)
[2017-11-15 17:58] LABS: Amylase 57 U/L (25-115); Lipase 40 U/L (73-393)
[2017-11-15] MEDS: MORPHINE SULFATE 10 MG/ML INJ 1ML SDV IV PRN (18:05)
[2017-11-15] MEDS ORDERED: PANTOPRAZOLE 40 MG TAB PO ONE (18:15)
[2017-11-15] MEDS ORDERED: cefTRIAXone 1GM/10ml IVPUSH 10 ML IV ONE (18:15)
[2017-11-15 18:35] LABS: INR 1.1 (0.9-1.15); Partial Thromboplastin Time 33.3 sec (22.64-33.71)
[2017-11-15] MEDS: SODIUM CHLORIDE 0.9% 1,000 ML IV SCH (18:44)
[2017-11-15 23:28] LABS: Urine WBC None Seen /hpf (0 - 3)
[2017-11-15] MEDS ORDERED: chlordiazePOXIDE HCL 5 MG CAP PO PRN (23:30)
[2017-11-15 23:38] LABS: Urine Bacteria NONE SEEN /hpf (None Seen); Urine Blood Negative /uL (Negative); Urine Hyaline Cast FEW /lpf (0 - 2); Urine Specific Gravity 1.012 (1.001-1.035)
[2017-11-15] MEDS ORDERED: DILTIAZEM HCL 25 MG/5 ML VIAL IV ONE (23:45)
[2017-11-15 23:49] LABS: Amphetamine Screen, Urine NEGATIVE (NEGATIVE); Barbiturate Scree,Urine NEGATIVE (NEGATIVE); Benzodiazephine Screen, Urine NEGATIVE (NEGATIVE); Cannabinoid Screen, Urine NEGATIVE (NEGATIVE); Cocaine Screen, Urine NEGATIVE (NEGATIVE); Opiate Scree,Urine NEGATIVE (NEGATIVE); Phencyclidine Screen, Urine NEGATIVE (NEGATIVE)
[2017-11-15] MEDS: metroNIDAZOLE 500MG/100ML 100 ML IV SCH (23:50)
[2017-11-16] MEDS ORDERED: DILTIAZEM HCL 25 MG/5 ML VIAL IV ONE (01:00)
[2017-11-16 01:11] LABS: Hematocrit 40.1 % (41.0-53.0); Hemoglobin 13.9 g/dL (13.5-17.5)
[2017-11-16] MEDS: MORPHINE SULFATE 10 MG/ML INJ 1ML SDV IV PRN ×5 (01:19→22:14)
[2017-11-16 02:00] VITALS: BP 106/77
[2017-11-16] MEDS: SODIUM CHLORIDE 0.9% 1,000 ML IV SCH ×2 (02:05→10:35)
[2017-11-16 04:31] VITALS: BP 137/96
[2017-11-16 05:25] LABS: Hematocrit 39.9 % (41.0-53.0)
[2017-11-16 05:46] LABS: Albumin 2.8 g/dL (3.4-5.0); BUN/Creatinine Ratio 23.9; Bilirubin, Total 0.8 mg/dL (0.2-1.0); Calcium 8.3 mg/dL (8.5-10.1); Potassium 4.3 mmol/L (3.5-5.1); Total Protein 6.8 g/dL (6.4-8.2)
[2017-11-16] MEDS: InsuLIN REG 1unit/0.01ml Soln (100units/ml) SC SCH ×5 (05:51→23:43)
[2017-11-16] MEDS: ACCU-CHEK COMFORT CURVE STRIP VI SCH ×5 (05:51→23:43)
[2017-11-16] MEDS: metroNIDAZOLE 500MG/100ML 100 ML IV SCH (05:52)
[2017-11-16] MEDS ORDERED: MORPHINE SULFATE 4 MG/ML SYR/VIAL ONE (05:53)
[2017-11-16] MEDS ORDERED: cefTRIAXone 1GM/10ml IVPUSH 10 ML IV SCH (09:00)
[2017-11-16] MEDS ORDERED: INFLUENZA QUAD 2017-2018 0.5 ML SYRG IM ONE (10:00)
[2017-11-16] MEDS ORDERED: PNEUMOCOCCAL VACC POLYS 25 MCG/0.5 ML VIAL IM ONE (10:00)
[2017-11-16] MEDS ORDERED: PANTOPRAZOLE 40 MG TAB PO SCH (10:00)
[2017-11-16] MEDS ORDERED: ENOXAPARIN SOD 40 MG/0.4 ML SYRINGE SC SCH (10:00)
[2017-11-16] MEDS: PANTOPRAZOLE 40 MG TAB PO SCH ×2 (10:35→21:43)
[2017-11-16 11:59] VITALS: BP 126/84
[2017-11-16] MEDS: SUCRALFATE 1 GM TAB PO SCH ×3 (12:07→21:43)
[2017-11-16] MEDS: chlordiazePOXIDE HCL 5 MG CAP PO SCH ×3 (12:07→21:43)
[2017-11-16 13:01] LABS: Hemoglobin 15.6 g/dL (13.5-17.5)
[2017-11-16 16:57] VITALS: BP 148/93
[2017-11-16] MEDS ORDERED: LABETALOL HCL 5 MG/ML ML 20ML VIAL IV PRN (18:15)
[2017-11-16 22:00] VITALS: BP 152/95
[2017-11-17] MEDS: MORPHINE SULFATE 10 MG/ML INJ 1ML SDV IV PRN ×5 (02:19→20:26)
[2017-11-17 05:00] VITALS: BP 135/77
[2017-11-17] MEDS: chlordiazePOXIDE HCL 5 MG CAP PO SCH ×4 (05:58→21:59)
[2017-11-17] MEDS: SUCRALFATE 1 GM TAB PO SCH ×4 (05:59→21:59)
[2017-11-17] MEDS: ACCU-CHEK COMFORT CURVE STRIP VI SCH ×3 (05:59→17:30)
[2017-11-17] MEDS: InsuLIN REG 1unit/0.01ml Soln (100units/ml) SC SCH ×3 (06:00→17:30)
[2017-11-17 09:00] VITALS: BP 136/82
[2017-11-17] MEDS: ASPirin-EC 81 mg tab PO SCH (10:00)
[2017-11-17] MEDS: PANTOPRAZOLE 40 MG TAB PO SCH ×2 (10:52→22:00)
[2017-11-17 13:00] VITALS: BP 143/89
[2017-11-17] MEDS ORDERED: FLUoxetine HCL 20 MG CAP PO ONE (14:30)
[2017-11-17 16:43] VITALS: BP 133/96
[2017-11-17 21:46] VITALS: BP 136/79
[2017-11-18] MEDS: InsuLIN REG 1unit/0.01ml Soln (100units/ml) SC SCH ×2 (00:28→06:00)
[2017-11-18] MEDS: MORPHINE SULFATE 10 MG/ML INJ 1ML SDV IV PRN ×3 (00:29→08:36)
[2017-11-18 05:11] VITALS: BP 133/79
[2017-11-18] MEDS: chlordiazePOXIDE HCL 5 MG CAP PO SCH ×2 (05:55→06:50)
[2017-11-18] MEDS: SUCRALFATE 1 GM TAB PO SCH ×2 (05:56→11:30)
[2017-11-18] MEDS: ACCU-CHEK COMFORT CURVE STRIP VI SCH ×2 (05:56)
[2017-11-18 09:00] VITALS: BP 133/84
[2017-11-18] MEDS ORDERED: PANT40T PO (09:34)
[2017-11-18] MEDS ORDERED: SUCR1TAB PO (09:34)
[2017-11-18] MEDS ORDERED: ASP81EC PO (09:34)
[2017-11-18] MEDS ORDERED: FLUO20CA90 PO (09:34)
[2017-11-18] MEDS: ASPirin-EC 81 mg tab PO SCH (09:50)
[2017-11-18] MEDS: PANTOPRAZOLE 40 MG TAB PO SCH (09:50)
[2017-11-18] MEDS ORDERED: FLUoxetine HCL 20 MG CAP PO SCH (10:00)
[2017-11-18 10:45] VITALS: BP 133/84
== END 2017-11-18 11:51 | disposition home or self-care (01) | DRG 812 ==
LOC: ER 13:34 → EDBD 13:34 → TELE 13:35 → MERGE 13:35 → DOU IN ICU 11-16 01:46 → TELE-WESTW 11-16 14:20
PROVIDERS: ADMIT Internal Medicine; ATTEND Internal Medicine
DX: T39.311A Poisoning by propionic acid derivatives, accidental (unintentional), initial encounter (principal); G92 Toxic encephalopathy; R65.10 Systemic inflammatory response syndrome (SIRS) of non-infectious origin without acute organ dysfunction; R45.851 Suicidal ideations; E44.1 Mild protein-calorie malnutrition; E11.65 Type 2 diabetes mellitus with hyperglycemia; I48.91 Unspecified atrial fibrillation; F10.239 Alcohol dependence with withdrawal, unspecified; F17.210 Nicotine dependence, cigarettes, uncomplicated; F32.9 Major depressive disorder, single episode, unspecified; F41.9 Anxiety disorder, unspecified; G89.29 Other chronic pain; K86.1 Other chronic pancreatitis; K22.9 Disease of esophagus, unspecified; T42.6X1A Poisoning by other antiepileptic and sedative-hypnotic drugs, accidental (unintentional), initial encounter; I10 Essential (primary) hypertension; J98.11 Atelectasis; K21.0 Gastro-esophageal reflux disease with esophagitis; E87.1 Hypo-osmolality and hyponatremia; K92.2 Gastrointestinal hemorrhage, unspecified; Z83.3 Family history of diabetes mellitus; Z82.49 Family history of ischemic heart disease and other diseases of the circulatory system; Z79.4 Long term (current) use of insulin; Z79.899 Other long term (current) drug therapy; Z90.89 Acquired absence of other organs; Y92.89 Other specified places as the place of occurrence of the external cause; Z23 Encounter for immunization; Z68.22 Body mass index [BMI] 22.0-22.9, adult
CPT/HCPCS: 36415; 74176; 80053; 80061; 80307; 80320; 80329; 81001; 82150; 82962; 83036; 83690; 83735; 84484; 85014; 85018; 85025; 85045; 85610; 85730; 87081; 93005; 93306; 96361; 96365; 96375; J1815; J3490

== ENCOUNTER 2018-03-22 20:38 | Emergency (ER) | payer MEDICAID ==
[~2018-03-22] VITALS: Ht 172.7 cm; Wt 81.6 kg
[~2018-03-22 20:38] MED LIST changes: +ASP81EC PO; +FLUO20CA90 PO; +PANT40T PO; +SUCR1TAB PO
[2018-03-22 21:22] LABS: Basophils # (auto) 0 uL; Basophils % (auto) 0.4 % (0.0-2.0); Eosinophils # (auto) 0 uL; Eosinophils % (auto) 0.1 % (0.0-7.0); Hematocrit 42.9 % (41.0-53.0); Hemoglobin 14.7 g/dL (13.5-17.5); Lymphocytes # (auto) 0.3 uL; Lymphocytes % (auto) 8.9 % (10.0-50.0); Mean Corpuscular Hemoglobin 34.4 pg (28.0-32.0); Mean Corpuscular Hgb Conc. 34.3 g/dL (32.0-36.0); Mean Corpuscular Volume 100.4 fL (80.0-100.0); Monocytes # (auto) 0.1 uL; Neutrophils # (auto) 3.4 uL; Neutrophils % (auto) 88.6 % (37.0-80.0); Platelet Count (auto) 233 10^3/uL (140-450); Red Blood Cells 4.27 10^6/uL (4.5-5.90); Red Cell Distribution Width 13.8 % (11.8-14.3); White Blood Cell 3.9 10^3/uL (4.4-10.8)
[2018-03-22 21:41] LABS: Urine Bacteria NONE SEEN /hpf (None Seen); Urine Blood Negative /uL (Negative); Urine Specific Gravity 1.006 (1.001-1.035); Urine WBC <1 /hpf (0 - 3)
[2018-03-22 21:43] LABS: Alanine Aminotransferase 52 U/L (16-61); Albumin 3.9 g/dL (3.4-5.0); Alkaline Phosphatase 103 U/L (45-117); Anion Gap 12 (5-15); Aspartate Aminotransferase 72 U/L (15-37); BUN/Creatinine Ratio 10.1; Bilirubin, Total 0.2 mg/dL (0.2-1.0); Blood Urea Nitrogen 8 mg/dL (7-18); Calcium 8.9 mg/dL (8.5-10.1); Carbon Dioxide 22 mmol/L (21-32); Chloride 100 mmol/L (98-107); GFR African American 132 mL/min; GFR Non-African American 109 mL/min; Glucose 135 mg/dL (74-106); Magnesium 1.9 mg/dL (1.6-2.6); Potassium 3.5 mmol/L (3.5-5.1); Sodium 134 mmol/L (136-145)
[2018-03-22 21:52] LABS: Amphetamine Screen, Urine NEGATIVE (NEGATIVE); Barbiturate Scree,Urine NEGATIVE (NEGATIVE); Benzodiazephine Screen, Urine NEGATIVE (NEGATIVE); Cannabinoid Screen, Urine NEGATIVE (NEGATIVE); Cocaine Screen, Urine NEGATIVE (NEGATIVE); Opiate Scree,Urine NEGATIVE (NEGATIVE); Phencyclidine Screen, Urine NEGATIVE (NEGATIVE)
[2018-03-23] MEDS ORDERED: MVI in SODIUM CHLORIDE 0.9% 1,010 ML ONE (02:43)
[2018-03-23] MEDS ORDERED: THIAMINE 100mg/ml INJ (200mg/2ml VIAL) ONE (02:44)
[2018-03-23 05:50] VITALS: BP 145/72
[2018-03-23] MEDS ORDERED: THIAMINE INJ 100 MG, MULTIPLE VITAMIN 10 ML, FOLIC ACID 1 MG, MAGNESIUM SULF SDV 50% 8 ... IV SCH ×5 (12:00)
== END 2018-03-23 06:43 | disposition home or self-care (01) ==
LOC: EDBD 20:38 → ER 20:49
DX: R56.9 Unspecified convulsions (principal); F10.129 Alcohol abuse with intoxication, unspecified; G92 Toxic encephalopathy; E11.9 Type 2 diabetes mellitus without complications; I10 Essential (primary) hypertension; K21.9 Gastro-esophageal reflux disease without esophagitis; R42 Dizziness and giddiness; F17.210 Nicotine dependence, cigarettes, uncomplicated; Z79.4 Long term (current) use of insulin; Z79.82 Long term (current) use of aspirin
CPT/HCPCS: 36415; 70450; 80053; 80307; 81001; 82962; 83735; 84484; 85025; 93005; 96365; 96366; 99285; J3411; J3475; J7042

== ENCOUNTER 2018-04-15 17:49 | Inpatient (IN) | payer MEDICAID ==
[~2018-04-15] VITALS: Ht 177.8 cm; Wt 83.6 kg
[2018-04-15 19:04] LABS: Basophils # (auto) 0 uL; Basophils % (auto) 1.5 % (0.0-2.0); Eosinophils # (auto) 0 uL; Hemoglobin 12.6 g/dL (13.5-17.5); Monocytes # (auto) 0.4 uL; White Blood Cell 3.2 10^3/uL (4.4-10.8)
[2018-04-15 19:06] LABS: Eosinophils % (auto) 1.1 % (0.0-7.0); Hematocrit 36.5 % (41.0-53.0); Lymphocytes # (auto) 0.6 uL; Mean Corpuscular Hgb Conc. 34.6 g/dL (32.0-36.0); Mean Corpuscular Volume 101.1 fL (80.0-100.0); Monocytes % (auto) 13.4 % (0.0-12.0); Neutrophils # (auto) 2.1 uL; Nucleated Red Blood Cells % 0.1 %; Platelet Count (auto) 189 10^3/uL (140-450); Red Blood Cells 3.61 10^6/uL (4.5-5.90); Red Cell Distribution Width 14.8 % (11.8-14.3)
[2018-04-15 19:11] LABS: Alanine Aminotransferase 65 U/L (16-61); Albumin 3.2 g/dL (3.4-5.0); Anion Gap 12 (5-15); Aspartate Aminotransferase 69 U/L (15-37); BUN/Creatinine Ratio 9.1; Blood Alcohol < 3.0 mg/dL (0-5); Blood Urea Nitrogen 10 mg/dL (7-18); Calcium 8.4 mg/dL (8.5-10.1); Carbon Dioxide 25 mmol/L (21-32); Chloride 94 mmol/L (98-107); GFR African American 90 mL/min; GFR Non-African American 74 mL/min; Glucose 283 mg/dL (74-106); Sodium 131 mmol/L (136-145)
[2018-04-15 19:14] LABS: Alkaline Phosphatase 83 U/L (45-117); Bilirubin, Total 0.3 mg/dL (0.2-1.0); Total Protein 7.1 g/dL (6.4-8.2)
[2018-04-15] MEDS ORDERED: LORazepam 2MG/ML-1ML VIAL IV ONE (20:00)
[2018-04-15] MEDS ORDERED: SODIUM CHLORIDE 0.9% 1,000 ML IV ONE (20:00)
[2018-04-15 20:45] LABS: INR 0.95 (0.9-1.15); Prothrombin Time 10.2 sec (9.27-12.13)
[2018-04-15] MEDS ORDERED: chlordiazePOXIDE HCL 25 MG CAP PO ONE (21:00)
[2018-04-15] MEDS ORDERED: LEVETIRACETAM INJ 1,000 MG in D5W 5% 100 ML IV ONE (21:00)
[2018-04-15] MEDS ORDERED: MORPHINE SULF(PF) 0.5MG/ML 10ML VIAL IV PRN (21:30)
[2018-04-15] MEDS ORDERED: POTASSIUM CHL 20 Meq TABLET PO ONE (21:30)
[2018-04-15] MEDS ORDERED: TEMAZEPAM 15 MG CAP PO PRN (21:30)
[2018-04-15] MEDS ORDERED: LORazepam 0.5 MG TAB PO PRN (21:30)
[2018-04-15] MEDS: THIAMINE INJ 100 MG, MULTIPLE VITAMIN 10 ML, FOLIC ACID 1 MG, MAGNESIUM SULF SDV 50% 8 ... IV SCH ×5 (21:30)
[2018-04-15] MEDS ORDERED: DEXTROSE (50%) 50ML SYRG IV PRN (21:30)
[2018-04-15] MEDS ORDERED: chlordiazePOXIDE HCL 25 MG CAP PO PRN (21:30)
[2018-04-15] MEDS ORDERED: NITROGLYCERIN 0.4 MG SL TAB SL PRN (21:30)
[2018-04-15] MEDS ORDERED: LORazepam 2MG/ML-1ML VIAL IV PRN (21:30)
[2018-04-15] MEDS ORDERED: ACETAMINOPHEN 325 MG TAB PO PRN (21:30)
[2018-04-15] MEDS ORDERED: ONDANSETRON HCL 4 MG/2 ML VIAL IV PRN (21:30)
[2018-04-15] MEDS: GABAPENTIN 400 MG CAP PO SCH (22:00)
[2018-04-15] MEDS: PANTOPRAZOLE 40 MG TAB PO SCH (22:00)
[2018-04-15] MEDS: SUCRALFATE 1 GM TAB PO SCH (22:00)
[2018-04-15] MEDS: OXcarbazepine 300 MG TAB PO SCH (22:00)
[2018-04-15] MEDS: AMITRIPTYLINE HCL 25 MG TAB PO SCH (22:00)
[2018-04-15 22:12] LABS: Urine Bacteria NONE SEEN /hpf (None Seen); Urine Blood Negative /uL (Negative); Urine WBC <1 /hpf (0 - 3)
[2018-04-15 22:29] LABS: Alcohol, Urine < 3.0 mg/dL (0-5); Amphetamine Screen, Urine NEGATIVE (NEGATIVE); Barbiturate Scree,Urine NEGATIVE (NEGATIVE); Benzodiazephine Screen, Urine NEGATIVE (NEGATIVE); Cannabinoid Screen, Urine NEGATIVE (NEGATIVE); Cocaine Screen, Urine NEGATIVE (NEGATIVE); Opiate Scree,Urine NEGATIVE (NEGATIVE); Phencyclidine Screen, Urine NEGATIVE (NEGATIVE)
[2018-04-15 22:30] VITALS: BP 152/82
[2018-04-15 23:00] VITALS: BP 154/82
[2018-04-15] MEDS: ACCU-CHEK COMFORT CURVE STRIP VI SCH (23:45)
[2018-04-15] MEDS: InsuLIN REG 1unit/0.01ml Soln (100units/ml) SC SCH (23:45)
[2018-04-15] MEDS: HYDROcodone-ACET 5/325MG TAB PO PRN (23:46)
[2018-04-16] MEDS ORDERED: GABA300C10 PO (00:15)
[2018-04-16] MEDS ORDERED: PANT40TA2 PO (00:15)
[2018-04-16] MEDS ORDERED: GLIP-116 PO (00:17)
[2018-04-16] MEDS ORDERED: LISI-646 PO (00:17)
[2018-04-16] MEDS ORDERED: HYDR-4683 PO (00:17)
[2018-04-16] MEDS ORDERED: HCTZ25T PO (00:17)
[2018-04-16] MEDS: HYDROcodone-ACET 5/325MG TAB PO PRN ×4 (04:06→20:32)
[2018-04-16 05:11] VITALS: BP 127/85
[2018-04-16] MEDS: ACCU-CHEK COMFORT CURVE STRIP VI SCH ×3 (05:49→17:39)
[2018-04-16] MEDS: InsuLIN REG 1unit/0.01ml Soln (100units/ml) SC SCH ×3 (05:49→17:39)
[2018-04-16] MEDS: GABAPENTIN 400 MG CAP PO SCH ×3 (06:23→22:04)
[2018-04-16] MEDS: SUCRALFATE 1 GM TAB PO SCH ×4 (06:24→21:13)
[2018-04-16 07:28] LABS: Eosinophils # (auto) 0.1 uL; Mean Corpuscular Hemoglobin 34.8 pg (28.0-32.0); Mean Corpuscular Hgb Conc. 34.4 g/dL (32.0-36.0); Monocytes # (auto) 0.4 uL; Red Blood Cells 3.45 10^6/uL (4.5-5.90); White Blood Cell 3.2 10^3/uL (4.4-10.8)
[2018-04-16 07:31] LABS: Basophils # (auto) 0 uL; Basophils % (auto) 1.2 % (0.0-2.0); Eosinophils % (auto) 2.6 % (0.0-7.0); Hematocrit 34.8 % (41.0-53.0); Lymphocytes # (auto) 0.8 uL; Lymphocytes % (auto) 23.7 % (10.0-50.0); Monocytes % (auto) 12.2 % (0.0-12.0); Neutrophils # (auto) 1.9 uL; Neutrophils % (auto) 60.3 % (37.0-80.0); Platelet Count (auto) 181 10^3/uL (140-450); Red Cell Distribution Width 15.1 % (11.8-14.3)
[2018-04-16 08:03] LABS: Albumin 2.9 g/dL (3.4-5.0); BUN/Creatinine Ratio 9.3; Bilirubin, Total 0.3 mg/dL (0.2-1.0); Calcium 8.4 mg/dL (8.5-10.1); Potassium 3.6 mmol/L (3.5-5.1); Total Protein 6.3 g/dL (6.4-8.2)
[2018-04-16 08:18] VITALS: BP 111/78
[2018-04-16] MEDS: PANTOPRAZOLE 40 MG TAB PO SCH ×2 (09:48→21:13)
[2018-04-16] MEDS: ENOXAPARIN SOD 40 MG/0.4 ML SYRINGE SC SCH (09:48)
[2018-04-16] MEDS: OXcarbazepine 300 MG TAB PO SCH ×2 (09:49→21:13)
[2018-04-16 12:18] VITALS: BP 160/99
[2018-04-16] MEDS: THIAMINE INJ 100 MG, MULTIPLE VITAMIN 10 ML, FOLIC ACID 1 MG, MAGNESIUM SULF SDV 50% 8 ... IV SCH ×5 (12:20)
[2018-04-16] MEDS ORDERED: LISINOPRIL 5 MG TAB PO ONE (16:15)
[2018-04-16 16:46] VITALS: BP 164/104
[2018-04-16] MEDS ORDERED: LABETALOL HCL 5 MG/ML ML 20ML VIAL IV ONE (18:30)
[2018-04-16] MEDS ORDERED: LABETALOL HCL 5 MG/ML ML 20ML VIAL IV PRN (18:30)
[2018-04-16 20:35] VITALS: BP 145/89
[2018-04-16] MEDS: AMITRIPTYLINE HCL 25 MG TAB PO SCH (21:13)
[2018-04-16 22:00] VITALS: BP 139/83
[2018-04-17] MEDS: ACCU-CHEK COMFORT CURVE STRIP VI SCH ×5 (00:23→23:45)
[2018-04-17] MEDS: InsuLIN REG 1unit/0.01ml Soln (100units/ml) SC SCH ×5 (00:23→23:45)
[2018-04-17] MEDS: HYDROcodone-ACET 5/325MG TAB PO PRN ×3 (04:51→21:59)
[2018-04-17 05:46] VITALS: BP 149/90
[2018-04-17] MEDS: GABAPENTIN 400 MG CAP PO SCH ×3 (06:03→21:59)
[2018-04-17] MEDS: SUCRALFATE 1 GM TAB PO SCH ×4 (06:03→21:58)
[2018-04-17 09:00] VITALS: BP 141/86
[2018-04-17] MEDS: ENOXAPARIN SOD 40 MG/0.4 ML SYRINGE SC SCH (09:38)
[2018-04-17] MEDS: PANTOPRAZOLE 40 MG TAB PO SCH ×2 (09:38→21:59)
[2018-04-17] MEDS: LISINOPRIL 5 MG TAB PO SCH (09:39)
[2018-04-17] MEDS: OXcarbazepine 300 MG TAB PO SCH (09:39)
[2018-04-17] MEDS: THIAMINE INJ 100 MG, MULTIPLE VITAMIN 10 ML, FOLIC ACID 1 MG, MAGNESIUM SULF SDV 50% 8 ... IV SCH ×5 (12:11)
[2018-04-17 13:00] VITALS: BP 167/91
[2018-04-17 17:16] VITALS: BP 146/90
[2018-04-17] MEDS: AMITRIPTYLINE HCL 25 MG TAB PO SCH (21:58)
[2018-04-17 22:00] VITALS: BP 150/91
[2018-04-18 05:00] VITALS: BP 152/96
[2018-04-18] MEDS: GABAPENTIN 400 MG CAP PO SCH ×3 (05:33→21:31)
[2018-04-18] MEDS: ACCU-CHEK COMFORT CURVE STRIP VI SCH ×4 (05:34→23:32)
[2018-04-18] MEDS: InsuLIN REG 1unit/0.01ml Soln (100units/ml) SC SCH ×4 (05:34→23:32)
[2018-04-18] MEDS: SUCRALFATE 1 GM TAB PO SCH ×4 (06:00→21:30)
[2018-04-18 08:13] VITALS: BP 142/98
[2018-04-18] MEDS: PANTOPRAZOLE 40 MG TAB PO SCH ×2 (10:50→21:31)
[2018-04-18] MEDS: ENOXAPARIN SOD 40 MG/0.4 ML SYRINGE SC SCH (10:51)
[2018-04-18] MEDS: LISINOPRIL 5 MG TAB PO SCH (10:51)
[2018-04-18] MEDS: THIAMINE INJ 100 MG, MULTIPLE VITAMIN 10 ML, FOLIC ACID 1 MG, MAGNESIUM SULF SDV 50% 8 ... IV SCH ×5 (11:05)
[2018-04-18] MEDS: HYDROcodone-ACET 5/325MG TAB PO PRN (11:07)
[2018-04-18 12:46] VITALS: BP 164/95
[2018-04-18 17:00] VITALS: BP 156/99
[2018-04-18] MEDS: AMITRIPTYLINE HCL 25 MG TAB PO SCH (21:31)
[2018-04-18 22:00] VITALS: BP 132/86
[2018-04-19 05:10] VITALS: BP 137/83
[2018-04-19] MEDS: GABAPENTIN 400 MG CAP PO SCH ×2 (05:45→14:00)
[2018-04-19] MEDS: ACCU-CHEK COMFORT CURVE STRIP VI SCH ×3 (05:46→18:00)
[2018-04-19] MEDS: InsuLIN REG 1unit/0.01ml Soln (100units/ml) SC SCH ×3 (05:46→19:14)
[2018-04-19] MEDS: SUCRALFATE 1 GM TAB PO SCH ×3 (06:02→19:14)
[2018-04-19 07:49] VITALS: BP 140/85
[2018-04-19] MEDS: PANTOPRAZOLE 40 MG TAB PO SCH (09:29)
[2018-04-19] MEDS: ENOXAPARIN SOD 40 MG/0.4 ML SYRINGE SC SCH (09:29)
[2018-04-19] MEDS: LISINOPRIL 5 MG TAB PO SCH (09:29)
[2018-04-19 12:02] VITALS: BP 141/94
[2018-04-19] MEDS: HYDROcodone-ACET 5/325MG TAB PO PRN (12:52)
[2018-04-19] MEDS: THIAMINE INJ 100 MG, MULTIPLE VITAMIN 10 ML, FOLIC ACID 1 MG, MAGNESIUM SULF SDV 50% 8 ... IV SCH ×5 (13:56)
[2018-04-19 16:35] VITALS: BP 158/95
[2018-04-19 20:00] VITALS: BP 142/79
== END 2018-04-19 20:20 | disposition home or self-care (01) | DRG 775 ==
LOC: EDBD 17:49 → ER 17:49 → TELE 17:50 → TELE-WESTW 22:49 → TELE-EAST 04-16 05:17
PROVIDERS: ADMIT Nurse Practitioner; ATTEND Internal Medicine Pulmonary Disease
DX: F10.239 Alcohol dependence with withdrawal, unspecified (principal); G93.41 Metabolic encephalopathy; E44.0 Moderate protein-calorie malnutrition; G40.409 Other generalized epilepsy and epileptic syndromes, not intractable, without status epilepticus; E11.42 Type 2 diabetes mellitus with diabetic polyneuropathy; E11.65 Type 2 diabetes mellitus with hyperglycemia; Z68.26 Body mass index [BMI] 26.0-26.9, adult; E87.5 Hyperkalemia; G62.1 Alcoholic polyneuropathy; E87.1 Hypo-osmolality and hyponatremia; F17.210 Nicotine dependence, cigarettes, uncomplicated; I10 Essential (primary) hypertension; K21.9 Gastro-esophageal reflux disease without esophagitis; F32.9 Major depressive disorder, single episode, unspecified; Z79.899 Other long term (current) drug therapy; Z80.1 Family history of malignant neoplasm of trachea, bronchus and lung; Z80.3 Family history of malignant neoplasm of breast; Z82.3 Family history of stroke; Z82.0 Family history of epilepsy and other diseases of the nervous system; Z80.42 Family history of malignant neoplasm of prostate; Z80.8 Family history of malignant neoplasm of other organs or systems; Z82.49 Family history of ischemic heart disease and other diseases of the circulatory system; Z83.3 Family history of diabetes mellitus; Z86.73 Personal history of transient ischemic attack (TIA), and cerebral infarction without residual deficits; Z79.4 Long term (current) use of insulin
CPT/HCPCS: 36415; 80053; 80307; 80320; 81001; 82962; 83036; 85025; 85610; 95819; 96361; 96365; 96375; 97163; J1815; J7060

== ENCOUNTER 2018-05-15 15:05 | Emergency (ER) | payer MEDICAID ==
[~2018-05-15] VITALS: Ht 177.8 cm; Wt 76.7 kg
[~2018-05-15 15:05] MED LIST changes: -ASP81EC PO; -CHOL20007 OR; -CIPR-217 PO; -FLUO20CA90 PO; -GAB100C PO; -GABA-339 PO; +GABA300C10 PO; +GLIP-116 PO; +HCTZ25T PO; +HYDR-4683 PO; -IBUP600T27 PO; +LISI-646 PO; -OMEP20CA74 PO; -OXCA600T3 PO; -PANT1INJ3 PO; -PANT40T PO; +PANT40TA2 PO; -SUCR1TAB38 PO; -TRAM50TA2 PO; -[UNRECOGNIZED DRUG - CODE] EX
[2018-05-15 16:32] LABS: Basophils # (auto) 0 uL; Eosinophils # (auto) 0 uL; Eosinophils % (auto) 0.1 % (0.0-7.0); Lymphocytes # (auto) 0.8 uL; Monocytes # (auto) 0.7 uL
[2018-05-15 16:34] LABS: Basophils % (auto) 0.2 % (0.0-2.0); Hematocrit 33.4 % (41.0-53.0); Lymphocytes % (auto) 7.8 % (10.0-50.0); Mean Corpuscular Hemoglobin 35.8 pg (28.0-32.0); Mean Corpuscular Hgb Conc. 35.8 g/dL (32.0-36.0); Mean Corpuscular Volume 99.8 fL (80.0-100.0); Monocytes % (auto) 6.3 % (0.0-12.0); Neutrophils # (auto) 8.9 uL; Neutrophils % (auto) 85.6 % (37.0-80.0); Platelet Count (auto) 457 10^3/uL (140-450); Red Blood Cells 3.35 10^6/uL (4.5-5.90); Red Cell Distribution Width 14.3 % (11.8-14.3); White Blood Cell 10.4 10^3/uL (4.4-10.8)
[2018-05-15 16:41] LABS: Albumin 3.1 g/dL (3.4-5.0); BUN/Creatinine Ratio 15.3; Calcium 8.9 mg/dL (8.5-10.1); Potassium 4.6 mmol/L (3.5-5.1)
[2018-05-15 16:44] LABS: Bilirubin, Total 0.7 mg/dL (0.2-1.0); Total Protein 7.9 g/dL (6.4-8.2)
[2018-05-15] MEDS ORDERED: SODIUM CHLORIDE 0.9% 1,000 ML IVB ONE (17:02)
[2018-05-15] MEDS ORDERED: PROMETHAZINE HCL 25 MG/ML 1ML IV ONE (17:15)
[2018-05-15] MEDS ORDERED: MORPHINE SULFATE 4 MG/ML SYR/VIAL IV ONE (17:15)
[2018-05-15] MEDS ORDERED: VANCOMYCIN 1GM/250ML 250 ML IV ONE (17:30)
[2018-05-15 21:48] LABS: Urine WBC None Seen /hpf (0 - 3)
[2018-05-15 22:13] LABS: Urine Bacteria NONE SEEN /hpf (None Seen); Urine Blood Negative /uL (Negative); Urine Specific Gravity 1.012 (1.001-1.035)
[2018-05-15] MEDS ORDERED: SODIUM CHLORIDE 0.9% 1,000 ML IV ONE (23:45)
[2018-05-16] MEDS ORDERED: MEPERIDINE HCL (25 MG/ML) 1ML VIAL IV ONE
[2018-05-16 00:17] VITALS: BP 128/76
== END 2018-05-16 00:54 | disposition home or self-care (01) ==
LOC: EDBD 15:05 → ER 15:05
DX: T81.4XXA Infection following a procedure, initial encounter (principal); E11.65 Type 2 diabetes mellitus with hyperglycemia; E13.40 Other specified diabetes mellitus with diabetic neuropathy, unspecified; I10 Essential (primary) hypertension; E44.1 Mild protein-calorie malnutrition; Z68.24 Body mass index [BMI] 24.0-24.9, adult; K21.9 Gastro-esophageal reflux disease without esophagitis; R42 Dizziness and giddiness; F17.210 Nicotine dependence, cigarettes, uncomplicated
CPT/HCPCS: 36415; 70450; 71046; 80053; 81001; 83735; 85025; 87077; 87186; 87205; 93005; 94761; 96365; 96366; 96375; 99285; J2175; J2270; J2550; J3370; J7030

== ENCOUNTER 2018-10-10 09:59 | Emergency (ER) | payer MEDICAID ==
[~2018-10-10] VITALS: Ht 170.2 cm; Wt 77.1 kg
[2018-10-10] MEDS: PANTOPRAZOLE 40 MG/10 ML VIAL IV STA (11:46)
[2018-10-10] MEDS: SODIUM CHLORIDE 0.9% 1,000 ML IVB ONE (11:46)
[2018-10-10] MEDS: ONDANSETRON HCL 4 MG/2 ML VIAL IV ONE (11:50)
[2018-10-10] MEDS: LORazepam 2MG/ML-1ML VIAL IV ONE (11:50)
[2018-10-10 13:02] LABS: Eosinophils # (auto) 0 uL; Hemoglobin 8.3 g/dL (13.5-17.5); Lymphocytes # (auto) 0.5 uL; Neutrophils # (auto) 7.5 uL
[2018-10-10 13:04] LABS: Basophils # (auto) 0.1 uL; Basophils % (auto) 0.6 % (0.0-2.0); Hematocrit 25.2 % (41.0-53.0); Lymphocytes % (auto) 5.5 % (10.0-50.0); Mean Corpuscular Hemoglobin 29.6 pg (28.0-32.0); Mean Corpuscular Volume 89.6 fL (80.0-100.0); Monocytes # (auto) 0.7 uL; Neutrophils % (auto) 85.9 % (37.0-80.0); Platelet Count (auto) 220 10^3/uL (140-450); Red Blood Cells 2.82 10^6/uL (4.5-5.90); Red Cell Distribution Width 14.8 % (11.8-14.3); White Blood Cell 8.7 10^3/uL (4.4-10.8)
[2018-10-10 13:20] LABS: Blood Alcohol < 3.0 mg/dL (0-5); Lipase 22 U/L (73-393)
[2018-10-10 13:22] LABS: Anion Gap 7 (5-15); Blood Urea Nitrogen 29 mg/dL (7-18); Calcium 7.4 mg/dL (8.5-10.1); Carbon Dioxide 21 mmol/L (21-32); Chloride 106 mmol/L (98-107); Glucose 335 mg/dL (74-106); Magnesium 1.8 mg/dL (1.6-2.6); Sodium 134 mmol/L (136-145)
[2018-10-10 13:28] LABS: Alanine Aminotransferase 12 U/L (16-61); Alkaline Phosphatase 71 U/L (45-117); Aspartate Aminotransferase 9 U/L (15-37); BUN/Creatinine Ratio 23.8; Bilirubin, Total 0.2 mg/dL (0.2-1.0); GFR African American 80 mL/min; GFR Non-African American 66 mL/min; Total Protein 4.8 g/dL (6.4-8.2)
[2018-10-10 13:39] VITALS: BP 132/78
== END 2018-10-10 15:08 | disposition home or self-care (01) ==
LOC: EDBD 09:59 → ER 10:00
DX: R10.13 Epigastric pain (principal); F10.20 Alcohol dependence, uncomplicated; R11.10 Vomiting, unspecified; E11.9 Type 2 diabetes mellitus without complications; K21.9 Gastro-esophageal reflux disease without esophagitis; I10 Essential (primary) hypertension; F17.210 Nicotine dependence, cigarettes, uncomplicated; Z79.4 Long term (current) use of insulin; Z79.899 Other long term (current) drug therapy
CPT/HCPCS: 36415; 74176; 80053; 80320; 83690; 83735; 84484; 85025; 93005; 94761; 96361; 96374; 96375; 99284; C9113; J2060; J2405; J7030

== ENCOUNTER 2018-12-18 02:12 | Inpatient (IN) | payer MEDICAID | END 2018-12-20 16:51 | disposition home or self-care (01) | LOC: ER 02:12 → TELE 11:15 → TELE-EAST 21:52 | DX: E11.649 Type 2 diabetes mellitus with hypoglycemia without coma (principal); E43 Unspecified severe protein-calorie malnutrition; E83.42 Hypomagnesemia; E87.5 Hyperkalemia; K86.1 Other chronic pancreatitis; E11.43 Type 2 diabetes mellitus with diabetic autonomic (poly)neuropathy; E87.1 Hypo-osmolality and hyponatremia; K29.20 Alcoholic gastritis without bleeding; G89.29 Other chronic pain; I10 Essential (primary) hypertension; F10.229 Alcohol dependence with intoxication, unspecified; G40.909 Epilepsy, unspecified, not intractable, without status epilepticus; K27.9 Peptic ulcer, site unspecified, unspecified as acute or chronic, without hemorrhage or perforation ==

== ENCOUNTER 2019-02-15 22:58 | Inpatient (IN) | payer MEDICAID ==
[~2019-02-15] VITALS: Ht 175.3 cm; Wt 102.0 kg
[~2019-02-15 22:58] MED LIST changes: +FLUO-125 PO; -GLIP-116 PO; -HCTZ25T PO; -HYDR-4683 PO; +INSU32MI9; -LORA-654 PO; +PANT40T PO; -PANT40TA2 PO; +TRAZ100T2 PO
[2019-02-15 23:58] LABS: Hematocrit 46.2 % (41.0-53.0); Hemoglobin 15.2 g/dL (13.5-17.5); Mean Corpuscular Hemoglobin 31.6 pg (28.0-32.0); Mean Corpuscular Hgb Conc. 32.9 g/dL (32.0-36.0); Mean Corpuscular Volume 95.9 fL (80.0-100.0); Platelet Count (auto) 125 10^3/uL (140-450); Red Blood Cells 4.82 10^6/uL (4.5-5.90); Red Cell Distribution Width 18.4 % (11.8-14.3)
[2019-02-16] VITALS (58 sets, daily range): BP systolic 76–147; BP diastolic 28–108
[2019-02-16 00:06] LABS: Chloride 85 mmol/L (98-107)
[2019-02-16 00:09] LABS: Basophils % (manual) 0 (0.0-2.0); Blast Cells 0; Eosinophils % (manual) 0 (0-7); Promyelocytes % 0; Reactive Lymphocytes 0
[2019-02-16 00:12] LABS: Albumin 2.4 g/dL (3.4-5.0); Anion Gap 25 (5-15); Blood Urea Nitrogen 51 mg/dL (7-18); Calcium 9.9 mg/dL (8.5-10.1); Glucose 202 mg/dL (74-106)
[2019-02-16 00:13] LABS: Salicylate < 1.7 mg/dL (2.8-20.0)
[2019-02-16] MEDS ORDERED: SODIUM CHLORIDE 0.9% 2,000 ML IV ONE ×2 (00:15→13:30)
[2019-02-16 00:16] LABS: Alanine Aminotransferase 35 U/L (16-61); Aspartate Aminotransferase 66 U/L (15-37); GFR African American 15 mL/min; GFR Non-African American 13 mL/min; Total Protein 6.9 g/dL (6.4-8.2)
[2019-02-16 00:18] LABS: Alkaline Phosphatase 43 U/L (45-117)
[2019-02-16 00:24] LABS: Bilirubin, Total 0.5 mg/dL (0.2-1.0)
[2019-02-16 00:29] LABS: Acetaminophen < 2.0 ug/mL (10-30)
[2019-02-16 00:30] LABS: Potassium 5.8 mmol/L (3.5-5.1); Sodium 118 mmol/L (136-145)
[2019-02-16] MEDS ORDERED: SODIUM CHL 3% 500 ML IV ONE (00:30)
[2019-02-16 00:31] LABS: Carbon Dioxide 8 mmol/L (21-32)
[2019-02-16] MEDS ORDERED: SODIUM BICARBONATE 8.4 % INJ 50ML VIAL IV ONE ×5 (00:33→21:00)
[2019-02-16 00:49] LABS: Band Neutrophils % (manual) 60; Lymphocytes % (manual) 9 (10.0-50.0); Metamyelocytes % 5; Monocytes % (manual) 6 (0-12); Myelocytes % 3
[2019-02-16 01:05] LABS: Urine Bacteria MOD /hpf (None Seen); Urine Blood 1+ /uL (Negative); Urine Hyaline Cast MANY /lpf (0 - 2); Urine Mucus FEW (None Seen); Urine Specific Gravity 1.017 (1.001-1.035); Urine Sperm PRESENT /hpf (None Seen); Urine WBC Clumps PRESENT /hpf (None Seen)
[2019-02-16 01:06] LABS: Urine WBC 12 /hpf (0 - 3)
[2019-02-16 01:16] LABS: Alcohol, Urine < 3.0 mg/dL (0-5); Amphetamine Screen, Urine POSITIVE (NEGATIVE); Barbiturate Scree,Urine NEGATIVE (NEGATIVE); Benzodiazephine Screen, Urine NEGATIVE (NEGATIVE); Cannabinoid Screen, Urine NEGATIVE (NEGATIVE); Cocaine Screen, Urine NEGATIVE (NEGATIVE); Opiate Scree,Urine NEGATIVE (NEGATIVE); Phencyclidine Screen, Urine NEGATIVE (NEGATIVE)
[2019-02-16] MEDS ORDERED: NOREPINEPHRINE 8 MG/250ML KIT 250 ML IV ONE (01:24)
[2019-02-16] MEDS: NOREPINEPHRINE 8 MG/250ML KIT 250 ML IV SCH ×3 (01:37→19:45)
[2019-02-16 06:18] LABS: Hematocrit 42.2 % (41.0-53.0); Hemoglobin 14.2 g/dL (13.5-17.5); Mean Corpuscular Hemoglobin 31.1 pg (28.0-32.0); Mean Corpuscular Hgb Conc. 33.6 g/dL (32.0-36.0); Mean Corpuscular Volume 92.6 fL (80.0-100.0); Platelet Count (auto) 85 10^3/uL (140-450); Red Blood Cells 4.56 10^6/uL (4.5-5.90); Red Cell Distribution Width 17.6 % (11.8-14.3); White Blood Cell 3.6 10^3/uL (4.4-10.8)
[2019-02-16 06:29] LABS: Basophils % (manual) 0 (0.0-2.0); Blast Cells 0; Eosinophils % (manual) 0 (0-7); Myelocytes % 0; Promyelocytes % 0; Reactive Lymphocytes 0
[2019-02-16 06:30] LABS: INR 0.98 (0.9-1.15); Prothrombin Time 10.5 sec (9.27-12.13)
[2019-02-16 06:36] LABS: Albumin 2.4 g/dL (3.4-5.0); Calcium 9.6 mg/dL (8.5-10.1); Magnesium 2.3 mg/dL (1.6-2.6)
[2019-02-16 06:40] LABS: BUN/Creatinine Ratio 11.3; Bilirubin, Total 0.5 mg/dL (0.2-1.0); Phosphorus 6.8 mg/dL (2.5-4.90); Total Protein 6.2 g/dL (6.4-8.2)
[2019-02-16] MEDS ORDERED: IPRATROPIUM BROM 0.5 MG/2.5ML INH SOL NEB ONE (06:45)
[2019-02-16] MEDS ORDERED: ALBUTEROL SULF 2.5 MG/0.5ML(0.5%) NEB SOLN NEB ONE ×3 (06:45→21:00)
[2019-02-16] MEDS ORDERED: LORazepam 2MG/ML-1ML VIAL IV PRN (06:45)
[2019-02-16] MEDS ORDERED: DEXTROSE (50%) 50ML SYRG IV PRN (06:45)
[2019-02-16 06:52] LABS: Potassium 5.9 mmol/L (3.5-5.1)
[2019-02-16] MEDS ORDERED: ALBUTEROL SULF 2.5 MG/0.5ML(0.5%) NEB SOLN ONE (07:06)
[2019-02-16] MEDS ORDERED: SODIUM CHLORIDE 0.9% 1,000 ML IV SCH (07:15)
[2019-02-16 07:18] LABS: Band Neutrophils % (manual) 30; Lymphocytes % (manual) 2 (10.0-50.0); Metamyelocytes % 1; Monocytes % (manual) 7 (0-12)
[2019-02-16] MEDS: InsuLIN REG 1unit/0.01ml Soln (100units/ml) SC SCH ×4 (07:32→22:24)
[2019-02-16] MEDS: ACCU-CHEK COMFORT CURVE STRIP VI SCH ×4 (07:33→22:24)
[2019-02-16 07:46] LABS: Lactic Acid w/Reflex 3.2 mmol/L (0.4-2.0)
--- NOTE | 2019-02-16 08:30 | NUR ---
CALL RECEIVED FROM NEPHROLOGY PATIENT NOT YET RECEIVED IN ICU - DR MONTE UPDATED ON CURRENT LABS, DRIPS, REASON FOR CONSULT AND PENDING PATIENT ADMITTANCE TO ICU. ORDERS RECEIVED AND WILL BE CARRIED OUT ONCE PATIENT ARRIVES. DR MONTE ALSO ORDERED 3% SODIUM DRIP TO BE DISCONTINUED NOW AND TO NOTIFY ER. CONTACT ER TO NOTIFY SHAWN RODAS REGISTERED NURSE.
--- NOTE | 2019-02-16 08:50 | NUR ---
Pt being admitted to ICU CHANO WADE admitted to ICU via gurney on cardiac sonographer, and portable 02. Patient transferred to bed, connected to ICU monitoring and oxygen, and weighed by [facility]. Patient oriented to Zuleyma Ariza, primary RN, unit, room, bed, and unit policies regarding patient care and visiting hours. Patient alert and oriented to person only with episodes of alertness to situation, this nurse able to converse on/off appropriately with patient. Patient heart rate increased, ekg order received and will be performed. Patient currently on 15 liters via non rebreather with inability to obtain continuous oxygen saturations due to extremities being cold. Patient currently sating 100% after being placed on portable oxygen monitoring. Patient temperature also decreased 96.5 - rectal temp will be checked for accuracy. All questions and concerns addressed, patient verbalized understanding. Fall precautions in place. Call light within reach. Addendum: 02/20/19 at 1607 by Zuleyma Ariza RN PATIENT ON SUICIDE PRECAUTIONS - NO SITTER AT BEDSIDE UPON ADMISSION. RODDY CHARGE NURSE AWARE AND NOTIFIED THIS NURSE THAT "CODING TECH AWARE AND STATED HE DOES NOT NEED A SITTER". FALL, SAFETY AND SUICIDE PRECAUTIONS WILL BE INITIATED BY THIS NURSE.
--- NOTE | 2019-02-16 09:05 | NUR ---
CONTACT HOSPITALIST DR GARCIA NOTIFIED OF ECG RESULTS. ORDERS RECEIVED AND STATED HE WOULD BE AT BEDSIDE SOON.
[2019-02-16] MEDS ORDERED: AMIODARONE HCL 900 MG in DEXTROSE 500 ML IV SCH ×4 (09:20→15:53)
[2019-02-16] MEDS ORDERED: AMIODARONE HCL 150 MG in D5W 5% 100 ML IV ONE (09:45)
--- NOTE | 2019-02-16 09:45 | NUR ---
Family updated on pt status Family of CHANO WADE updated on patient's status and condition. All questions and concerns addressed. Marybeth, patient's spouse verbalized understanding .
[2019-02-16] MEDS ORDERED: PANTOPRAZOLE 40 MG TAB PO SCH (10:00)
--- NOTE | 2019-02-16 10:00 | NUR ---
NO ECHO TO PERFORMED/HOSPITALIST AWARE PER TECH TECH PATIENT HAD ONE DONE IN OCTOBER AND ORDERS MUST BE OBTAINED FROM DERRICK BUILDER. DR GARCIA AWARE AND VERBALIZED NEED FOR ECHO THERE IS A STATUS CHANGE.
[2019-02-16] MEDS ORDERED: SODIUM CHLORIDE 0.9% 1,900 ML IV ONE ×2 (10:45→18:00)
--- NOTE | 2019-02-16 11:15 | NUR ---
AWNING CRAFTSPERSON AT BEDSIDE Addendum: 02/16/19 at 1117 by Zuleyma Ariza RN BEDSIDE OXYGEN MONITOR NOT FUNCTIONING, PORTABLE OXYGEN PLACED AT BEDSIDE BY Ivy CURRENT READING 100% ON 15 LITERS NON-REBREATHER. R.T. DECREASED OXYGEN TO 10 LITERS. WILL MONITOR AND DECREASE OXYGEN CONSUMPTION BASED ON O2 SATURATIONS.
--- NOTE | 2019-02-16 11:56 | NUR ---
CONTACT FAMILY/MESSAGE LEFT FOR SPOUSE CONTACT PHONE NUMBER NOTED IN PATIENT SPREADSHEET. SPOKE WITH PATIENT'S MOTHER SKYLER WHO NOTIFIED THIS NURSE TO "CALL HIS ADELAIDA, SHE IS THE ONE TO GIVE CONSENT FOR ANY PROCEDURES". MESSAGE LEFT FOR ADELAIDA FOR CENTRAL LINE PLACEMENT CONSENT. AWAITING RETURN CALL.
--- NOTE | 2019-02-16 12:25 | NUR ---
CALL RECEIVED FROM POISON CONTROL [place] UPDATED ON PATIENT'S STATUS, LABS AND IMAGES. - .
--- NOTE | 2019-02-16 12:37 | NUR ---
CONTACT PATIENT'S SPOUSE RETURN CALL FROM ADELAIDA, SPOUSE. PLAN OF CARE WAS DISCUSSED WITH ADELAIDA AND PHYSICIAN'S ORDER FOR CENTRAL LINE PLACEMENT. ADELAIDA VERBALIZED VIA TELEPHONE "WHATEVER YOU NEED TO DO TO HELP HIM". CONSENT VERIFIED BY RODDY, CHARGE NURSE. ADELAIDA ALSO NOTIFIED THIS NURSE THAT PATIENT HAS A HISTORY OF DIABETES FOR WHICH HE TAKES INSULIN - SHE ALSO STATED THAT HE MAY HAVE BEEN GIVEN SLEEPING PILLS BUT COULD NOT CONFIRM THAT. SHE ALSO STATED HE HAS HAD A HISTORY OF PANCREATITIS IN THE PAST, DENIED DRUG ABUSE BUT CONFIRMED ETOH ABUSE FOR "MANY YEARS". SHE ALSO STATED HE HAS HAD A HISTORY OF SEIZURES WHICH BEGAN IN 2011 ON AND OFF - LAST SEIZURE OCCURRED ABOUT 6-9 MONTHS AGO, ONCE AGAIN NOT TOO SURE OF LAST SEIZURE - HYPOTENSION, BACK SURGERY, PCP IS DR LEYVA. LAST SAW PATIENT ON "SUNDAY, COMPLAINING OF BACK PAIN/STOMACH AND WHOLE BODY ACHED".
[2019-02-16 12:44] LABS: BUN/Creatinine Ratio 11.2; Potassium 5.4 mmol/L (3.5-5.1)
--- NOTE | 2019-02-16 15:04 | NUR ---
PAGED NEPHROLOGY DR MONTE TO UPDATE ON RECENT LABS AND URINE OUTPUT. MESSAGE LEFT WITH ANSWERING SERVICE, AWAITING RESPONSE.
--- NOTE | 2019-02-16 15:56 | NUR ---
CENTRAL LINE READJUSTED/OK TO USE LISETTE WALTERS NP AT BEDSIDE, READJUSTED CENTRAL LINE AND VERIFIED CXR, OK TO USE PER LISETTE.
[2019-02-16] MEDS: SODIUM CHLORIDE 0.9% 1,000 ML IV SCH (16:00)
--- NOTE | 2019-02-16 16:00 | NUR ---
CONTACT RADIOLOGY TO NOTIFY PATIENT READY TO GO TO CT, EZEQUIEL STATED OK AND WILL SEND TECH.
[2019-02-16] MEDS: cefTRIAXone 1GM/50ML D5W 50 ML IV SCH (16:24)
--- NOTE | 2019-02-16 16:38 | NUR ---
FAMILY AT BEDSIDE PATIENT'S COUSIN ELIZ AT BEDSIDE.
--- NOTE | 2019-02-16 16:40 | NUR ---
SECOND CALL TO RADIOLOGY THIS NURSE ASKED MILAD BRINK TO FOLLOW-UP WITH RADIOLOGY REGARDING TRANSFER FOR ABDOMINAL/PELVIC CT. STAE THEY WOULD BE IN SOON.
[2019-02-16] MEDS: LINEZOLID 600MG/300ML 300 ML IV SCH ×2 (17:20→22:24)
--- NOTE | 2019-02-16 17:25 | NUR ---
PATIENT OFF FLOOR TO CT VIA GURNEY, ACCOMPANIED BY HR CLERK AND THIS NURSE. PATIENT ALERT AND ORIENTED X2, NO DISTRESS NOTED, RESPIRATIONS EVEN AND UNLABORED, VSS - PATIENT TACHYPNEIC AND SATURATION 98 ON 4 LITERS NASAL CANNULA.
--- NOTE | 2019-02-16 17:45 | NUR ---
RETURN TO ICU FROM CT SCAN. PATIENT CONTINUES TO BE ALERT AND ORIENTED X2, NO DISTRESS NOTED RESPIRATIONS EVEN AND UNLABORED. PATIENT CONNECTED TO BEDSIDE MONITOR, VSS AND DOCUMENTED. COMFORT MEASURES PROVIDED - COMPLETE BEDDING CHANGED.
--- NOTE | 2019-02-16 18:00 | NUR ---
STATUS CHANGE AFTER PROVIDING COMFORT MEASURES, PATIENT BECAME NON RESPONSIVE WHEN THIS NURSE CALLED HIS NAME, APPEARED TO BE IN RESPIRATORY DISTRESS. HOSPITALIST IN ICU UNIT AND NOTIFIED. ASSESSED THE NEED FOR INTUBATION.
[2019-02-16] MEDS ORDERED: ETOMIDATE (2MG/ML) 20ML VIAL IV ONE (18:04)
[2019-02-16] MEDS ORDERED: PROPOFOL 100 ML IV ONE (18:05)
--- NOTE | 2019-02-16 18:06 | NUR ---
CALL RECEIVED FROM RADIOLOGY/HOSPITALIST NOTIFIED CALL RECEIVED FROM FANI WITH [facility]. SPOKE WITH RADIOLOGIST DR CUMMINS CT FOUND LARGE AMOUNT OF FREE AIR AND A BOWEL PERFORATION - SITE OF PERFORATION NOT NOTED. HOSPITALIST NOTIFIED. STAT SURGICAL CONSULT ORDERED.
[2019-02-16] MEDS: PHENYLEPHRINE INJ 20 MG in SODIUM CHL 0.9% 250 ML IV SCH (18:26)
--- NOTE | 2019-02-16 18:31 | NUR ---
FAMILY/UPDATE CALLED AND SPOKE WITH PT'S , ADELAIDA, BY PHONE , AND NOTIFIED OF CHANGE IN PT'S CONDITION NECESSITATING NEED FOR INTUBATION AND OF ABNORMAL CT ABD RESULTS AND THAT A STAT SURGICAL HAS BEEN CALLED. SHE IS ON HER WAY AND I TOLD HER WE WILL HAVE THE SURGEON CALL HER IF HE ARRIVES BEFORE SHE DOES.
--- NOTE | 2019-02-16 18:41 | NUR ---
RETURN CALL FROM NEPHROLOGY DR MONTE UPDATED ON PATIENT'S STATUS, LABS, IMAGING AND RECENT INTUBATION. ORDERS RECEIVED. Addendum: 02/16/19 at 1844 by Zuleyma Ariza RN DR MONTE ALSO NOTIFIED OF TOTAL URINE OUTPUT 25 MLS FOR AM SHIFT.
--- NOTE | 2019-02-16 18:44 | NUR ---
Family updated on pt status Family of CHANO WADE updated on patient's status and condition. All questions and concerns addressed. Patient's sister verbalized understanding.
[2019-02-16] MEDS ORDERED: DEXTROSE (50%) 50ML SYRG IV ONE (18:45)
[2019-02-16] MEDS ORDERED: InsuLIN REG 1unit/0.01ml Soln (100units/ml) IV ONE (18:45)
[2019-02-16 18:57] LABS: BUN/Creatinine Ratio 10.9; Calcium 8.8 mg/dL (8.5-10.1)
[2019-02-16] MEDS: AMIODARONE HCL 900 MG in DEXTROSE 500 ML IV SCH (19:00)
--- NOTE | 2019-02-16 19:00 | NUR ---
CRITICAL/END OF SHIFT NOTE PHONE CALL RECEIVED FROM LABORATORY REGARDING CURRENT POTASSIUM LEVEL. ORDERS RECEIVED FROM DR MONTE AND ENDORSED TO RESEARCH AND DEVELOPMENT DIRECTOR RN. RESEARCH AND DEVELOPMENT DIRECTOR RN AWARE TO NOTIFY DR MONTE OF 1100 PM LABS AFTER PREVIOUS ORDERS FOR HYPERKALEMIA ARE ADMINISTERED. PATIENT MECHANICALLY INTUBATED, VS STABLE, NO DISTRESS NOTED. Addendum: 02/16/19 at 2131 by Zuleyma Ariza RN THROUGHOUT AM SHIFT, THIS NURSE, CHARGE NURSE AND RESPIRATORY THERAPIST WAS UNABLE TO GET OXYGEN SATURATION READINGS AT BEDSIDE. RRaphael PLACED A PORTABLE OXYGEN MONITORING SYSTEM AND OXYGEN SATURATION RANGED BETWEEN 92% THROUGH 100%, THEREFORE, OXYGEN SATURATION IS NOT NOTED IN INTERVENTION VITAL SIGN SECTION.
[2019-02-16 19:03] LABS: Potassium 5.9 mmol/L (3.5-5.1)
--- NOTE | 2019-02-16 19:20 | NUR ---
Initial Assessment Patient received laying on bed on mechanical ventilation and sedation with no s/s of distress or pain noted. ETT secured with Linda, Ambu bag at bedside, oral care and suction rendered. HOB elevated to 30 degrees for VAP/aspiration precautions. PERRL intact but sluggish. RIJ central line intact and patent with no s/s of infiltration or phlebitis noted-dressing CDI. Surrounding tissue to RFA PIV is ecchymotic and puffy, Will notify . EDITH IV intact and patent with no s/s of infiltration or phlebitis. Abd is soft but distended with very hypoactive bowel sounds. F/C intact and draining dark jed urine to gravity. Generalized body is mottled and cool to touch but all distal pulses are palpable. All extremities elevated. Bed in lowest position, side rails up, bed brakes set, all alarms audible, in direct view of the nurses station. Continue close monitoring.
--- NOTE | 2019-02-16 19:23 | NUR ---
Dr. Patel call Informed of status of patient, gtts, vitals, background, CT results. He states he will get in touch with admitting hospitalist. States to continue current plan of care and he will be in in the morning to assess the patient.
[2019-02-16] MEDS ORDERED: NITROGLYCERIN 2% OINT 1GM PKG TD ONE (19:30)
--- NOTE | 2019-02-16 19:33 | NUR ---
Hospitalist call Informed the hospitalist, WENDY Lake, of current condition of patient including gtts, labs, vitals and status. Informed that RFA appears to have infiltration with dark purple discoloration and mild swelling. He states the RT read him the ABG results. He ordered: -D/C NS 100ml/hour -Start patient on 10/30 NS with 1 amp of sodium bicarb at 100ml/hour continuous -administer an additional amp of bicarb IV push (this is in addition to the two amps ordered for hyperkalemia treatment) -RT to administer Albuterol 20mg med neb for hyperkalemia treatment -Ok to put Nitro-bid paste on RFA TD x1 RN performed TORB and LOG RAFT WORKER verified orders to be correct. No additional orders received.
--- NOTE | 2019-02-16 19:37 | NUR ---
RT paged Informed of ordered Albuterol treatment for hyperkalemia.
--- NOTE | 2019-02-16 19:45 | NUR ---
IV discontinued RFA IV discontinued and pressure dressing applied. Nitro-bid applied to site and arm elevated. Neurovascular status remains intact and no worsening of discoloration noted.
--- NOTE | 2019-02-16 20:00 | NUR ---
Family at bedside Patient's and three Sons are at bedside. RN updated on status and POC and they verbalized understanding. Informed also that Dr. Patel will be rounding in the morning to determine if the patient needs to go to surgery and they verbalized understanding. No concerns or complaints voiced from them at this time. It was agreed that the main contact and consent signer is to be Marybeth, the patient's . She set up password of "Tania".
[2019-02-16] MEDS: SODIUM BICARBONATE 50ML VIAL 50 ML in SOD CHL 0.45% 1,000 ML IV SCH (20:17)
--- NOTE | 2019-02-16 20:30 | NUR ---
SCD's applied to BLE for DVT prophylaxis protocol.
[2019-02-16] MEDS: MIDAZOLAM DRIP 50 mg/50mL 50 ML IV SCH (21:00)
--- NOTE | 2019-02-16 21:00 | NUR ---
Cooling measures Rectal temperature 99.9F. Cooling measures applied with protective cloth in between skin and ice packs to maintain skin integrity. Patient tolerating well with no shivering or discomfort noted.
--- NOTE | 2019-02-16 21:06 | NUR ---
Button And Buckle Maker call informed packing house laborer of possible pending surgery with Dr. Patel and that patient's was wondering about time. She states they will not know until at least after 0630 when OR textiles and clothing teacher arrives.
[2019-02-16] MEDS: traZODone HCL 50 MG TAB PO SCH (22:00)
--- NOTE | 2019-02-16 22:00 | NUR ---
Poison Control call Poison control rep called and got update on patient. She states we need to add AST/ALT to next chem panel to see if LFTs are rising.
[2019-02-16] MEDS: PROPOFOL 100 ML IV SCH (22:30)
--- NOTE | 2019-02-16 22:45 | NUR ---
Hospitalist at bedside PRINTED CIRCUIT LAYOUT TAPER, Billings at bedside, assessed patient. No orders received.
[2019-02-16 23:48] LABS: Platelet Count (auto) 41 10^3/uL (140-450); White Blood Cell 2.3 10^3/uL (4.4-10.8)
[2019-02-16 23:50] LABS: Hematocrit 35.5 % (41.0-53.0); Hemoglobin 12.1 g/dL (13.5-17.5); Mean Corpuscular Hemoglobin 31.5 pg (28.0-32.0); Mean Corpuscular Hgb Conc. 34.2 g/dL (32.0-36.0); Mean Corpuscular Volume 92.2 fL (80.0-100.0); Red Blood Cells 3.85 10^6/uL (4.5-5.90); Red Cell Distribution Width 17.8 % (11.8-14.3)
[2019-02-16 23:57] LABS: Basophils % (manual) 0 (0.0-2.0); Blast Cells 0; Eosinophils % (manual) 0 (0-7); Metamyelocytes % 0; Myelocytes % 0; Promyelocytes % 0; Reactive Lymphocytes 0
[2019-02-17] VITALS (110 sets, daily range): BP systolic 61–141; BP diastolic 25–82
[2019-02-17 00:03] LABS: Chloride 93 mmol/L (98-107); Potassium 5.4 mmol/L (3.5-5.1); Sodium 129 mmol/L (136-145)
[2019-02-17 00:06] LABS: Albumin 1.6 g/dL (3.4-5.0); Anion Gap 18 (5-15); Blood Urea Nitrogen 65 mg/dL (7-18); Calcium 7.7 mg/dL (8.5-10.1); Carbon Dioxide 18 mmol/L (21-32); Glucose 262 mg/dL (74-106)
[2019-02-17 00:09] LABS: Alanine Aminotransferase 33 U/L (16-61); Aspartate Aminotransferase 75 U/L (15-37); BUN/Creatinine Ratio 12.4; GFR African American 15 mL/min; GFR Non-African American 12 mL/min
[2019-02-17 00:13] LABS: Alkaline Phosphatase 36 U/L (45-117); Bilirubin, Total 0.3 mg/dL (0.2-1.0); Total Protein 4.9 g/dL (6.4-8.2)
--- NOTE | 2019-02-17 00:20 | NUR ---
Dr. Myers paged re: lab results. Waiting for call back.
[2019-02-17 01:15] LABS: Band Neutrophils % (manual) 17; Lymphocytes % (manual) 25 (10.0-50.0); Monocytes % (manual) 14 (0-12)
--- NOTE | 2019-02-17 01:45 | NUR ---
Dr. Myers called back RN informed of all labs, gtts, urine output.He ordered: -1 amp of D50 IV x1 -2 amps of sodium bicarb IV x1 -1 gram Calcium Gluconate IV x1 -repeat labs later in the morning.. RN performed TORB and verified orders to be correct. No additional orders received. Will wait for pharmacy to verify orders.
[2019-02-17] MEDS ORDERED: SODIUM BICARBONATE 8.4 % INJ 50ML VIAL IV ONE ×2 (02:00→23:30)
[2019-02-17] MEDS ORDERED: CALCIUM GLUC 4.65meq/50ml D5AE 50 ML IV ONE (02:00)
[2019-02-17] MEDS ORDERED: InsuLIN REG 1unit/0.01ml Soln (100units/ml) IV ONE (02:00)
[2019-02-17] MEDS ORDERED: SODIUM CHLORIDE 0.9% 1,900 ML IV ONE (02:00)
[2019-02-17] MEDS ORDERED: DEXTROSE (50%) 50ML SYRG IV ONE (02:00)
[2019-02-17] MEDS: PHENYLEPHRINE INJ 20 MG in SODIUM CHL 0.9% 250 ML IV SCH ×3 (02:46→21:29)
--- NOTE | 2019-02-17 04:00 | NUR ---
Ongoing Assessment Pt continues to rest with no s/s of distress or pain. Fever has subsided, HR has normalized; pt being turned, all bony prominences and heels offloaded with pillows, skin is clean and dry, abdomen remains soft and distended-unchanged, OGT remains to LCS per Dr. Patel order draining dark green bile. RAC PIV intact and patent with no s/s of infiltration or phlebitis, skin discoloration to RFA has improved and no blistering or necrosis noted. Neurovascular status intact with palpable distal pulses, skin remains cool to touch with mottled appearance. No ectopy noted on bedside monitor. All fall and safety precautions remain intact. Continue close monitoring.
[2019-02-17] MEDS ORDERED: SODIUM BICARBONATE 8.4% INJ 50ML SYRINGE ONE ×2 (04:31→23:31)
[2019-02-17 04:51] LABS: White Blood Cell 2.8 10^3/uL (4.4-10.8)
[2019-02-17 04:53] LABS: Hematocrit 33.3 % (41.0-53.0); Hemoglobin 11.5 g/dL (13.5-17.5); Mean Corpuscular Hemoglobin 32.1 pg (28.0-32.0); Mean Corpuscular Hgb Conc. 34.5 g/dL (32.0-36.0); Mean Corpuscular Volume 92.9 fL (80.0-100.0); Platelet Count (auto) 26 10^3/uL (140-450); Red Blood Cells 3.59 10^6/uL (4.5-5.90); Red Cell Distribution Width 18.3 % (11.8-14.3)
[2019-02-17 04:56] LABS: Basophils % (manual) 0 (0.0-2.0); Blast Cells 0; Promyelocytes % 0; Reactive Lymphocytes 0
[2019-02-17 05:04] LABS: Chloride 94 mmol/L (98-107); Potassium 4.5 mmol/L (3.5-5.1); Sodium 131 mmol/L (136-145)
[2019-02-17 05:07] LABS: Albumin 1.4 g/dL (3.4-5.0); Anion Gap 19 (5-15); Blood Urea Nitrogen 64 mg/dL (7-18); Calcium 7.3 mg/dL (8.5-10.1); Carbon Dioxide 18 mmol/L (21-32); Glucose 219 mg/dL (74-106)
[2019-02-17 05:13] LABS: Alanine Aminotransferase 30 U/L (16-61); Alkaline Phosphatase 35 U/L (45-117); Aspartate Aminotransferase 72 U/L (15-37); BUN/Creatinine Ratio 12.4; Bilirubin, Total 0.3 mg/dL (0.2-1.0); GFR African American 15 mL/min; GFR Non-African American 12 mL/min; Total Protein 4.6 g/dL (6.4-8.2)
[2019-02-17 05:37] LABS: Phosphorus 5.2 mg/dL (2.5-4.90)
--- NOTE | 2019-02-17 06:00 | NUR ---
Propofol tubing changed per 12 hour protocol
[2019-02-17] MEDS: ACCU-CHEK COMFORT CURVE STRIP VI SCH ×4 (06:32→22:52)
[2019-02-17] MEDS: InsuLIN REG 1unit/0.01ml Soln (100units/ml) SC SCH ×4 (06:32→22:53)
--- NOTE | 2019-02-17 06:38 | NUR ---
Dr. Myers call informed of potassium. No orders received.
[2019-02-17] MEDS: SODIUM CHLORIDE 0.9% 1,000 ML IV SCH ×2 (06:45→16:45)
--- NOTE | 2019-02-17 06:50 | NUR ---
Surgery call Operating RN called and states patient may go at 0830 or after the [address] Patel's assessment.
--- NOTE | 2019-02-17 06:55 | NUR ---
Patient's call Informed of what the HARNESS MAKER said regarding time of surgery. She verbalized understanding. No concerns or complaints voiced from her.
--- NOTE | 2019-02-17 07:01 | NUR ---
Report given No changes or incidents to report, no s/s of distress or pain. Care endorsed to day shift RN.
--- NOTE | 2019-02-17 07:25 | NUR ---
REPORT Report received from Kristin STINSON, care assumed. Patient is intubated on ventilator, tolerating at this time. Lungs clear. Sedation of Diprivan. 99.0 rectal temp. PERRLA, cough and gag noted. Pulses palpable bilaterally. Sinus rhythm on bedside monitor. Patient on Levophed gtt. SCD's on left lower extremity, heels elevated on pillows. Greer catheter patent, hung below bladder. Abdomen is large, round, and distended. See skin assessment. Patient repositioned, bed locked in lowest position. Will continue to monitor.
[2019-02-17] MEDS: SODIUM BICARBONATE 50ML VIAL 50 ML in SOD CHL 0.45% 1,000 ML IV SCH ×2 (07:30→18:00)
[2019-02-17] MEDS: NOREPINEPHRINE 8 MG/250ML KIT 250 ML IV SCH ×2 (08:19→13:23)
--- NOTE | 2019-02-17 08:45 | NUR ---
HYPOTENSION Patient blood pressure trending 60-70 systolic. Sedation decreased and levophed gtt increased. Assess BP on left upper arm, results lower than right calf. BP cuff returned to right calf. Will continue to monitor. No other signs of distress noted at this time.
[2019-02-17] MEDS: PROPOFOL 100 ML IV SCH ×3 (08:53→23:00)
[2019-02-17] MEDS: cefTRIAXone 1GM/50ML D5W 50 ML IV SCH (08:53)
--- NOTE | 2019-02-17 09:00 | NUR ---
SURGICAL CONSULT at bedside assessing patient. He is aware of gtts, sedation, and labs. He has seen images. MD request Gastrografin to assess perforation/leak. He would like platelet count to be corrected before he will take patient in for surgery. Orders placed.
--- NOTE | 2019-02-17 09:10 | NUR ---
TEMPERATURE Patient running 99.9 rectal temp. Fan placed toward patient, blankets removed, and ice packs applied to trunk. Will continue to monitor.
[2019-02-17] MEDS ORDERED: GASTROGRAFIN 30 ML SOL ONE (09:22)
[2019-02-17] MEDS: LINEZOLID 600MG/300ML 300 ML IV SCH (09:22)
--- NOTE | 2019-02-17 09:30 | NUR ---
GASTROGRAFIN Gastrografin administered via OGT tube for small bowel series.
[2019-02-17] MEDS: PANTOPRAZOLE 40 MG/10 ML VIAL IV SCH (10:02)
--- NOTE | 2019-02-17 10:16 | NUR ---
PAGED paged regarding orders for platelet correction. Awaiting call back.
--- NOTE | 2019-02-17 10:28 | NUR ---
BLOOD BANK MD returned call, ordered 2 units of platelets to be given. Called blood bank to notify them of orders to get units ready. They stated they only have one unit in house, they are ordering the second unit which might take up to 4 hours to received.
--- NOTE | 2019-02-17 11:00 | NUR ---
MD ROUNDS at bedside assessing patient. Order received.
[2019-02-17 11:06] LABS: Band Neutrophils % (manual) 50; Eosinophils % (manual) 1 (0-7); Lymphocytes % (manual) 6 (10.0-50.0); Metamyelocytes % 4; Monocytes % (manual) 9 (0-12); Myelocytes % 5
--- NOTE | 2019-02-17 11:16 | NUR ---
RT Transport Note: Patient transported to ct with MILAD Zamora. Patient transported to and from procedure on ventilator with previous ordered settings. Patient on cardiac nurse practitioner with alarms set and audible, ambu-bag/mask connected to 02 tank. Patient returned to room with no adverse reaction noted. Transport completed without incident.
--- NOTE | 2019-02-17 11:35 | NUR ---
FAMILY Spoke with patients Marybeth regarding plan of care. Obtained consent for blood.
--- NOTE | 2019-02-17 11:50 | NUR ---
BLOOD PRODUCT First unit of platelet administration begun. No reactions noted.
--- NOTE | 2019-02-17 12:49 | NUR ---
PULMONOLOY CONSULT at bedside assessing patient. He wants CVP monitoring to be performed, 500 cc bolus of NS and 5%-300 ml albumin to be administered.
--- NOTE | 2019-02-17 12:56 | NUR ---
CVP Ranging 10-12, MD Barba notified.
[2019-02-17] MEDS ORDERED: SODIUM CHLORIDE 0.9% 500 ML IV ONE (13:00)
[2019-02-17] MEDS ORDERED: ALBUMIN 5% 50 ML IV ONE (13:30)
--- NOTE | 2019-02-17 14:20 | NUR ---
CONSENTS Obtained consents for surgery from Marybeth via phone. Patient is still attempting to make it to bedside today.
[2019-02-17] MEDS ORDERED: ALBUMIN 5% 250 ML IV ONE (14:30)
--- NOTE | 2019-02-17 14:30 | NUR ---
BLOOD PRODUCT Second unit of platelet administration begun. No reactions noted.
[2019-02-17] MEDS: AMIODARONE HCL 900 MG in DEXTROSE 500 ML IV SCH (14:32)
[2019-02-17 14:43] LABS: Hematocrit 31.4 % (41.0-53.0); Hemoglobin 10.8 g/dL (13.5-17.5); Mean Corpuscular Hemoglobin 31.8 pg (28.0-32.0); Mean Corpuscular Hgb Conc. 34.6 g/dL (32.0-36.0); Mean Corpuscular Volume 91.9 fL (80.0-100.0); Platelet Count (auto) 28 10^3/uL (140-450); Red Blood Cells 3.41 10^6/uL (4.5-5.90); Red Cell Distribution Width 17.8 % (11.8-14.3); White Blood Cell 4.7 10^3/uL (4.4-10.8)
[2019-02-17 14:46] LABS: Basophils % (manual) 0 (0.0-2.0); Blast Cells 0; Metamyelocytes % 0; Myelocytes % 0; Promyelocytes % 0; Reactive Lymphocytes 0
--- NOTE | 2019-02-17 14:57 | NUR ---
RAMON Weiner has decided to postpone surgery until tomorrow morning, due to continued low platelet count. He would like to transfuse two more units of platelets.
--- NOTE | 2019-02-17 15:47 | NUR ---
FAMILY Patient at bedside. She is aware surgery has been postponed until tomorrow. All questions addressed.
--- NOTE | 2019-02-17 17:19 | NUR ---
ROUNDING NOTE Partial linen change performed, yamini area cleansed. Skin assessment performed. New linen and pad placed under patient. Patient repositioned on side. Tolerated activity well. Vitals stable. Continue to monitor.
[2019-02-17 18:19] LABS: Calcium 7.2 mg/dL (8.5-10.1); Potassium 4.8 mmol/L (3.5-5.1)
[2019-02-17 18:22] LABS: BUN/Creatinine Ratio 12.2
[2019-02-17 18:44] LABS: Band Neutrophils % (manual) 26; Eosinophils % (manual) 1 (0-7); Lymphocytes % (manual) 13 (10.0-50.0); Monocytes % (manual) 10 (0-12)
--- NOTE | 2019-02-17 20:05 | NUR ---
RT NOTE VENT CHECK COMPLETED. PT TOLERATING SETTINGS WELL. NO CHANGES MADE AT THIS TIME. 1999 ABG NOT ABLE TO BE DRAWN AT THIS TIME. RT TRIED BUT WAS NOT ABLE TO COLLECT DUE TO LOW BP. RN MANJU ASKED THAT RT WAIT UNTIL BP COMES BACK UP.
[2019-02-17] MEDS: MIDAZOLAM DRIP 50 mg/50mL 50 ML IV SCH (21:00)
--- NOTE | 2019-02-17 21:30 | NUR ---
HYPOTENSION LEVOPHED DRIP 30 MCG/MIN. STARTED ON NEOSYNEPHRINE DRIP 40 MCG/MIN.
[2019-02-17] MEDS: traZODone HCL 50 MG TAB PO SCH (22:00)
--- NOTE | 2019-02-17 22:53 | NUR ---
ACCUCHEK PATIENT WITH CYANOTIC FINGERS TIPS. FINGER STICK GLUCOSE LEVEL ARE 46 AND 20 SO BLOOD DRAWN FROM CENTRAL LINE AND CHECKED SUGAR LEVEL AND IT IS 65.
--- NOTE | 2019-02-17 23:00 | NUR ---
POISON CONTROL POISON CONTROL UPDATED ON PT'S STATUS, RECOMMENDED TO GIVEN 50 ML BICARB DUE TO INCREASING QRS ON EKG. WILL PAGE HOSPITALIST.
[2019-02-18] VITALS (107 sets, daily range): BP systolic 62–145; BP diastolic 14–85
[2019-02-18] MEDS: NOREPINEPHRINE 8 MG/250ML KIT 250 ML IV SCH ×4 (00:07→13:52)
--- NOTE | 2019-02-18 00:20 | NUR ---
ICE PACKS APPLIED TEMPERATURE 100.2 RECTALLY, ICE PACKS ARE APPLIED. WILL MONITOR CLOSELY.
[2019-02-18] MEDS: PHENYLEPHRINE INJ 20 MG in SODIUM CHL 0.9% 250 ML IV SCH ×6 (00:41→15:31)
[2019-02-18] MEDS ORDERED: PHENYLEPHRINE IV 250 ML IV ONE ×2 (00:43→07:14)
[2019-02-18 02:30] LABS: Protein, Urine 241.8 mg/dL (0.0-11.9)
[2019-02-18] MEDS: SODIUM CHLORIDE 0.9% 1,000 ML IV SCH ×2 (02:45→12:45)
[2019-02-18 02:46] LABS: Urine Bacteria FEW /hpf (None Seen); Urine Blood 2+ /uL (Negative); Urine Hyaline Cast MANY /lpf (0 - 2); Urine Mucus FEW (None Seen); Urine Specific Gravity 1.012 (1.001-1.035); Urine Sperm PRESENT /hpf (None Seen); Urine WBC 46 /hpf (0 - 3); Urine WBC Clumps PRESENT /hpf (None Seen)
[2019-02-18 03:42] LABS: Hematocrit 31.6 % (41.0-53.0); Mean Corpuscular Hemoglobin 31.6 pg (28.0-32.0); Mean Corpuscular Hgb Conc. 34.8 g/dL (32.0-36.0); Mean Corpuscular Volume 90.8 fL (80.0-100.0); Platelet Count (auto) 36 10^3/uL (140-450); Red Blood Cells 3.48 10^6/uL (4.5-5.90); Red Cell Distribution Width 18.5 % (11.8-14.3); White Blood Cell 5.3 10^3/uL (4.4-10.8)
[2019-02-18 03:47] LABS: Basophils % (manual) 0 (0.0-2.0); Blast Cells 0; Metamyelocytes % 0; Myelocytes % 0; Promyelocytes % 0; Reactive Lymphocytes 0
[2019-02-18 03:56] LABS: Potassium 4.8 mmol/L (3.5-5.1)
[2019-02-18 04:01] LABS: Albumin 1.6 g/dL (3.4-5.0); Calcium 6.9 mg/dL (8.5-10.1)
[2019-02-18 04:07] LABS: BUN/Creatinine Ratio 13.3; Bilirubin, Total 0.8 mg/dL (0.2-1.0); Total Protein 4.9 g/dL (6.4-8.2)
[2019-02-18] MEDS: SODIUM BICARBONATE 50ML VIAL 50 ML in SOD CHL 0.45% 1,000 ML IV SCH ×2 (04:21→16:56)
--- NOTE | 2019-02-18 05:20 | NUR ---
LOW PLATELET PLT 36, HOSPITALIST WAS PAGED AND CHRISTOPHE NGUYEN CALLED BACK. DRY CHAIN PULLER ORDERED 2 BAGS (20 UNITS)OF PLATELETS.
[2019-02-18] MEDS: PROPOFOL 100 ML IV SCH (05:45)
[2019-02-18] MEDS: ACCU-CHEK COMFORT CURVE STRIP VI SCH ×3 (06:03→17:00)
[2019-02-18] MEDS: InsuLIN REG 1unit/0.01ml Soln (100units/ml) SC SCH ×3 (06:03→17:00)
--- NOTE | 2019-02-18 06:43 | NUR ---
Respiratory note: RECEIVED PATIENT ON V15 ESPRIT VENT ORALLY INTUBATED WITH AN 8.0 ETT SECURED VIA EMMY AT THE 24CM MARKING AT THE LIP, AND MECHANICALLY VENTILATED WITH THE CHARTED SETTINGS. SPO2 91%, LUNG SOUNDS DIM T/O, NO SECRETIONS WHEN SUCTIONED. SKIN IS COOL/DRY TO THE TOUCH AND IS INTACT NEAR EMMY SITE; NO BREAKDOWN NOTED AROUND LIP OR CHEEKS. NO NEW CXR TO ASSESS. THERE IS AN OGT IN PLACE AND SECURED TO THE ETT, A TRIPLE LUMEN CENTRAL LINE IS PLACED IN THE RIGHT IJ AND IS PATENT. +1 PITTING EDEMA NOTED IN THE BILATERAL UPPER EXTREMITIES, WELL IN THE BILATERAL LOWER EXTREMITIES. PATIENT IS UNRESPONSIVE TO BOTH VERBAL/TACTILE STIMULI AND IS SEDATED ON A PROPOFOL DRIP. HE IS CURRENTLY ON DIANE, AMIO, AND LEVO FOR HEMODYNAMIC INSTABILITY. HE IS RESTING COMFORTABLY AND TOLERATING VENT WELL, NO CHANGES MADE. VENT PLUGGED INTO RED OUTLET AND ALL ALARMS ARE SET AND AUDIBLE. WILL CONTINUE TO ASSESS PATIENT WELL VENTILATOR FUNCTION. PRN MED-NEB NOT INDICATED AT THIS TIME.
--- NOTE | 2019-02-18 07:35 | NUR ---
OPENING SHIFT NOTE Report received from Lolly RN, care assumed. Patient is intubated on ventilator, tolerating at this time. Lungs clear anteriorly, oxygen sat 98%. Sedation of Diprivan. 99.9 rectal temp. Ice packs applied to trunk for cooling measures. PERRLA, cough and gag noted. Pulses palpable bilaterally. Sinus rhythm on bedside monitor. Patient on Levophed and Neosynephrine gtt. SCD's on bilateral lower extremity, heels elevated on pillows. Greer catheter patent, hung below bladder. Abdomen is large, round, and distended. Bowel sounds absent. See skin assessment. Patient repositioned, bed locked in lowest position. Will continue to monitor.
[2019-02-18 07:38] LABS: Band Neutrophils % (manual) 27; Eosinophils % (manual) 1 (0-7); Lymphocytes % (manual) 16 (10.0-50.0); Monocytes % (manual) 5 (0-12)
--- NOTE | 2019-02-18 08:00 | NUR ---
SURGICAL ROUNDS at bedside assessing patient. He is aware patient is now on two vasopressors. He has seen morning labs and platelet count. He is planning to take patient to OR in 30 minutes.
[2019-02-18] MEDS ORDERED: SUCCINYLCHOLINE CHLORIDE 20 MG/ML 10ML VIAL IV ONE (08:01)
[2019-02-18] MEDS ORDERED: ROCURONIUM 10MG/ML 10ML VIAL IV ONE (08:06)
[2019-02-18] MEDS ORDERED: MIDAZOLAM HCL 1MG/1ML-2 ML VIAL ONE (08:06)
--- NOTE | 2019-02-18 08:10 | NUR ---
AT BEDSIDE anesthesiologist at bedside assessing patients hemodynamic stability and gtts. MD requesting Versed be started and Diprivan stopped for surgery.
[2019-02-18] MEDS: MIDAZOLAM DRIP 50 mg/50mL 50 ML IV SCH ×2 (08:30→12:19)
--- NOTE | 2019-02-18 08:30 | NUR ---
SEDATION Diprivan gtt stopped per MD request. Versed begun, titration to achieve moderate sedation.
--- NOTE | 2019-02-18 08:45 | NUR ---
Respiratory note: PATIENT TRANSPORTED TO SURGERY AT THIS TIME WITH OR TEAM. PATENT WAS TAKEN OFF VENTILATOR AND BAGGED VIA AMBU-BAG WITH 100% FIO2. HANDOFF REPORT AND VENT SETTINGS GIVEN TO OR NURSE. TRANSPORT COMPLETED WITHOUT INCIDENT.
--- NOTE | 2019-02-18 08:45 | NUR ---
O.R. Patient transferred to OR via bed with portable monitor, oxygen, RT, and OR team at bedside. Consents signed and placed in chart. notified of patient being taken to surgery. She will be waiting in OR waiting room. Vitals stable at time of transport.
[2019-02-18] MEDS ORDERED: ALBUMIN 5% 0 ML IV ONE (08:56)
[2019-02-18] MEDS ORDERED: ceFAZolin 1GM/50ML 50 ML IV ONE (09:09)
[2019-02-18] MEDS ORDERED: ALBUMIN 5% 250 ML IV ONE (09:23)
[2019-02-18] MEDS ORDERED: METHYLENE BLUE 0.5% 5MG/ML 10ml AMP IV ONE (09:29)
[2019-02-18] MEDS: PANTOPRAZOLE 40 MG/10 ML VIAL IV SCH (10:00)
[2019-02-18] MEDS: VASOPRESSIN 50 UNITS in D5W 5% 247.5 ML IV SCH (10:30)
--- NOTE | 2019-02-18 10:30 | NUR ---
PT RETURNED TO ROOM Patient back in room post exploratory laparotomy, Abdomen is soft, CECIL drain noted in left quadrant, sanguinous drainage noted. Patient connected to bedside monitor, Sinus rhythm 90's. Blood pressure systolic 60's consistently despite 3 L bolus and albumin given in PACU. Orders for Vasopressin obtained and started . Oxygen saturation 74 on 40% fio2. RT paged to bedside. Fio2 increased to 100% then titrated down to 60% to maintain pulse ox of 96%. Lungs coarse anteriorly with thin clear secretions noted in ETT during suctioning. Patient supine, no distress noted. Continue to monitor and titrate medications to achieve hemodynamic stability.
--- NOTE | 2019-02-18 11:05 | NUR ---
FAMILY Patient at bedside. She has been updated on status and plan of care.
[2019-02-18] MEDS: cefTRIAXone 1GM/50ML D5W 50 ML IV SCH (11:12)
--- NOTE | 2019-02-18 11:14 | NUR ---
MD OLMEDO Spoke with regarding blood pressure trends, surgery, and medication. Orders received.
[2019-02-18] MEDS ORDERED: SODIUM CHLORIDE 0.9% 1,000 ML IV ONE (11:15)
--- NOTE | 2019-02-18 11:18 | NUR ---
NUTRITION ASSESSMENT NOTES Please refer to link notes of nutrition screen form filed under the intervention section of the plan of care for further details. Est. Needs: 1850 kcal to 2250 kcal (25-30 kcal/kgBW), 60 gms to 75 gms pro (0.8-1.0 gms/kgBW). Will continue to monitor pertinent labs and reassess nutrient need prn Thank you. Addendum: 02/18/19 at [address] Amended: Links added.
--- NOTE | 2019-02-18 11:21 | NUR ---
POISON CONTROL Mikie from poison control called for update.
--- NOTE | 2019-02-18 12:08 | NUR ---
WOUND CARE NURSE ROUNDING Patient is too unstable at this time to turn completely on side. Full skin assessment was performed this morning when patient was more stable. Patient now on three vasopressors at max rate with minimal blood pressure stability.
--- NOTE | 2019-02-18 12:08 | NUR ---
BLOOD Labs drawn and sent.
--- NOTE | 2019-02-18 12:12 | NUR ---
WOUND CARE NOTE: Wound care in to see patient per wound care request regarding intubation status, and low Ammon score of 13, putting patient to high risk for skin breakdown. Patient is 53 years old male with admitting diagnosis of Overdose. He has history of COPD,DM, GERD, High Lipids, Htn, Seizures. Patient is resting in ICU bed in Rm. 107. He's intubated, sedated and mechanically ventilated. Patient appears to be in no pain using Pavon Khan Faces Pain Scale. Unable to turn patient to assess sacral and back bony prominences per bedside nurse request due to "Unstable to turn, max on three vasopressors". RN Lyndsey reported that patient's sacral and back was assessed this morning and no pressure injury related issue noted. Assesses anterior upper and lower extremities, no wound noted other than R forearm ecchymosis and mottled skin to bilateral foot. Patient's at bedside, reported that prior this hospitalization, patient ambulates with the use of walker but not with steady gait due to neuropathy, patient complaints of BLE pain. RECOMMENDATION: BID/PRN cleaning and application of Barrier cream to sacral, buttocks and perineum as preventative per MD order, frequent turning and repositioning schedule as condition permits, redistribute pressure points with pillows, elevate heels on pillows, Continue monitoring by Wound care while patient is mechanically ventilated.
[2019-02-18 12:28] LABS: Basophils # (auto) 0 uL; Eosinophils # (auto) 0.1 uL; Lymphocytes # (auto) 0.3 uL; Monocytes # (auto) 0 uL; Neutrophils % (auto) 95.6 % (37.0-80.0); Red Blood Cells 3.12 10^6/uL (4.5-5.90)
[2019-02-18 12:30] LABS: Basophils % (auto) 0.1 % (0.0-2.0); Eosinophils % (auto) 0.8 % (0.0-7.0); Hematocrit 28.8 % (41.0-53.0); Hemoglobin 9.7 g/dL (13.5-17.5); Lymphocytes % (auto) 3.3 % (10.0-50.0); Mean Corpuscular Hemoglobin 31.2 pg (28.0-32.0); Mean Corpuscular Hgb Conc. 33.8 g/dL (32.0-36.0); Mean Corpuscular Volume 92.5 fL (80.0-100.0); Monocytes % (auto) 0.2 % (0.0-12.0); Nucleated Red Blood Cells % 0.1 %; Red Cell Distribution Width 18.4 % (11.8-14.3); White Blood Cell 9.4 10^3/uL (4.4-10.8)
[2019-02-18 12:40] LABS: Albumin 1.5 g/dL (3.4-5.0); Potassium 4.6 mmol/L (3.5-5.1)
[2019-02-18 12:43] LABS: BUN/Creatinine Ratio 13.2; Bilirubin, Total 0.8 mg/dL (0.2-1.0); Total Protein 4.2 g/dL (6.4-8.2)
[2019-02-18 12:47] LABS: Platelet Count (auto) 14 10^3/uL (140-450)
[2019-02-18 12:50] LABS: Calcium 5.8 mg/dL (8.5-10.1)
--- NOTE | 2019-02-18 13:12 | NUR ---
PAGE: DR. GARCIA PAGED FOR CRITICAL RESULT OF LOW PLATELET COUNT OF 14 AND CALCIUM LEVEL OF 5.8. COVERING PRIMARY RN AT TIME FOR LUNCH SHIFT. WAITING FOR CALL BACK.
--- NOTE | 2019-02-18 13:20 | NUR ---
MD ROUNDS at bedside assessing patient and speaking with patients Marybeth regarding status and plan of care. He is aware of platelet count decreasing. Orders for transfusing received, and electrolyte replacement. Will notify MD of any further changes from baseline.
--- NOTE | 2019-02-18 13:37 | NUR ---
BLOOD PRODUCTS First unit of platelet administration begun, no reactions noted. Continue to monitor.
--- NOTE | 2019-02-18 14:01 | NUR ---
NEPHROLOGY ROUNDS at bedside assessing patient. He is aware of labs. No new orders received at this time.
--- NOTE | 2019-02-18 14:45 | NUR ---
PICC LINE NURSE AT BEDSIDE FOR MIDLINE PLACEMENT.
[2019-02-18] MEDS: NOREPINEPHRINE BITARTRATE 32 MG in D5W 5% 218 ML IV SCH (15:01)
--- NOTE | 2019-02-18 15:10 | NUR ---
BLOOD PRODUCTS Second unit of platelet administration begun, no reactions noted. Continue to monitor
[2019-02-18] MEDS ORDERED: TPN PER PHARMACY 0 ML IV SCH (15:15)
--- NOTE | 2019-02-18 15:30 | NUR ---
Midline Placement Patient's family educated by primary RN on need for midline placement. All risks and benefits explained and all questions and concerns addresses prior to procedure. 18g/10cm midline inserted via right brachial vein & 18g/10cm midline inserted via leftt brachial vein using Ultrasound. Sterile technique utilized. Blood return obtained from each of the lumens and flushed easily with NS using proper technique. Midlines secured with saline lock; biodiscs and occlusive dressings applied. Primary RN notified. *Right brachial midline lot #[id number] x 1 attempt. *Left brachial midline lot #[id number] x 2 attempts.
[2019-02-18] MEDS ORDERED: CALCIUM GLUC 4.65meq/50ml D5AE 50 ML IV ONE (15:45)
--- NOTE | 2019-02-18 16:30 | NUR ---
PERSONAL CARE Complete linen change performed. Skin assessment performed. New linen, gown, and yamini pad placed. Patient repositioned on side. Oral care performed, small amount of pink tinge secretions noted orally, clear in ETT. Abdominal binder in place. Patient tolerated fair. Vitals stable at this time. Will continue to monitor.
--- NOTE | 2019-02-18 16:56 | NUR ---
NS BOLUS HELD Normal saline bolus held due to patient increase in coarse lung sounds.
[2019-02-18] MEDS: AMIODARONE HCL 900 MG in DEXTROSE 500 ML IV SCH ×2 (17:20→20:31)
[2019-02-18] MEDS: PHENYLEPHRINE INJ 80 MG in SODIUM CHL 0.9% 250 ML IV SCH (17:23)
--- NOTE | 2019-02-18 19:06 | NUR ---
REPORT Report given to Lolly Vickers, care endorsed.
[2019-02-18] MEDS: AMINO ACID INFUSION IN D10W 1,000 ML IV NR (19:53)
--- NOTE | 2019-02-18 20:00 | NUR ---
NEURO STATUS PATIENT IS SEDATED ON VERSED DRIP 6MG/HR. PATIENT IS UNRESPONSIVE, NOT RESPONDING TO ANY STIMULI. NO GAG AND COUGH NOTED. SEDATION TURNED OFF TO CHECK NEURO STATUS.
[2019-02-18 20:18] LABS: Hemoglobin 9.7 g/dL (13.5-17.5); Mean Corpuscular Hemoglobin 30.9 pg (28.0-32.0); Mean Corpuscular Hgb Conc. 33.7 g/dL (32.0-36.0); White Blood Cell 11.4 10^3/uL (4.4-10.8)
[2019-02-18 20:20] LABS: Hematocrit 28.8 % (41.0-53.0); Mean Corpuscular Volume 91.9 fL (80.0-100.0); Platelet Count (auto) 30 10^3/uL (140-450); Red Blood Cells 3.13 10^6/uL (4.5-5.90); Red Cell Distribution Width 17.9 % (11.8-14.3)
[2019-02-18 20:34] LABS: Basophils % (manual) 0 (0.0-2.0); Blast Cells 0; Eosinophils % (manual) 0 (0-7); Myelocytes % 0; Promyelocytes % 0; Reactive Lymphocytes 0
[2019-02-18 20:41] LABS: BUN/Creatinine Ratio 14.4; Potassium 4.8 mmol/L (3.5-5.1)
[2019-02-18] MEDS: traZODone HCL 50 MG TAB PO SCH (21:42)
[2019-02-18 22:22] LABS: Band Neutrophils % (manual) 29; Lymphocytes % (manual) 4 (10.0-50.0); Metamyelocytes % 2; Monocytes % (manual) 7 (0-12)
--- NOTE | 2019-02-18 23:00 | NUR ---
HOSPITALIST CBC AND BMP REPORT INFORMED TO CHRISTOPHE NGUYEN AND SHE ORDERED TO GIVE CALCIUM [id number] ,BOARD LINING MACHINE OPERATOR OTHER ORDERS RECEIVED.
[2019-02-19] VITALS (109 sets, daily range): BP systolic 86–148; BP diastolic 41–74
[2019-02-19] MEDS: ACCU-CHEK COMFORT CURVE STRIP VI SCH ×5 (00:10→23:51)
[2019-02-19] MEDS: InsuLIN REG 1unit/0.01ml Soln (100units/ml) SC SCH ×5 (00:10→23:51)
[2019-02-19] MEDS ORDERED: CALCIUM GLUC 4.65meq/50ml D5AE 50 ML IV ONE ×3 (00:20→09:15)
[2019-02-19] MEDS: PHENYLEPHRINE INJ 80 MG in SODIUM CHL 0.9% 250 ML IV SCH ×3 (00:36→23:09)
[2019-02-19] MEDS: NOREPINEPHRINE BITARTRATE 32 MG in D5W 5% 218 ML IV SCH ×2 (00:37→16:00)
--- NOTE | 2019-02-19 02:00 | NUR ---
NEURO STATUS PATIENT HAS GAG. NO OTHER RESPONSE. SEDATION IS STILL OFF. PATIENT'S RESPIRATORY RATES ARE IN LOW 20'S.
[2019-02-19] MEDS: SODIUM BICARBONATE 50ML VIAL 50 ML in SOD CHL 0.45% 1,000 ML IV SCH (03:33)
--- NOTE | 2019-02-19 06:00 | NUR ---
RT. ARM SWELLING RT.ARM SWELLING IS INCREASING, DEVELOPED BLISTERS ON RT.AC AND FOREARM. WILL TAKE PICTURES AND INFORM MD.
[2019-02-19 06:30] LABS: Basophils # (auto) 0 uL; Basophils % (auto) 0.2 % (0.0-2.0); Eosinophils # (auto) 0.1 uL; Eosinophils % (auto) 0.6 % (0.0-7.0); Hemoglobin 9.8 g/dL (13.5-17.5); Lymphocytes # (auto) 0.3 uL; Monocytes # (auto) 0 uL; Monocytes % (auto) 0.3 % (0.0-12.0); Neutrophils # (auto) 11.6 uL
[2019-02-19 06:34] LABS: Hematocrit 28.4 % (41.0-53.0); Lymphocytes % (auto) 2.4 % (10.0-50.0); Mean Corpuscular Hemoglobin 31.5 pg (28.0-32.0); Mean Corpuscular Hgb Conc. 34.4 g/dL (32.0-36.0); Mean Corpuscular Volume 91.5 fL (80.0-100.0); Neutrophils % (auto) 96.5 % (37.0-80.0); Nucleated Red Blood Cells % 0.2 %; Red Blood Cells 3.11 10^6/uL (4.5-5.90); Red Cell Distribution Width 17.4 % (11.8-14.3)
[2019-02-19 06:49] LABS: Albumin 1.3 g/dL (3.4-5.0); Amylase 26 U/L (25-115); Anion Gap 16 (5-15); Blood Urea Nitrogen 57 mg/dL (7-18); Calcium 6.3 mg/dL (8.5-10.1); Carbon Dioxide 20 mmol/L (21-32); Chloride 93 mmol/L (98-107); Glucose 117 mg/dL (74-106); Lipase < 10 U/L (73-393); Magnesium 1.3 mg/dL (1.6-2.6); Potassium 3.9 mmol/L (3.5-5.1); Sodium 129 mmol/L (136-145)
[2019-02-19 06:53] LABS: Alanine Aminotransferase 28 U/L (16-61); Alkaline Phosphatase 83 U/L (45-117); Aspartate Aminotransferase 95 U/L (15-37); Bilirubin, Total 0.7 mg/dL (0.2-1.0); GFR African American 21 mL/min; GFR Non-African American 18 mL/min; Phosphorus 6.2 mg/dL (2.5-4.90); Pre Albumin < 3.0 mg/dL (20.0-40.0); Triglycerides 207 mg/dL (< 150)
--- NOTE | 2019-02-19 06:55 | NUR ---
HOSPITALIST CALLED BACK CHRISTOPHE NGUYEN CALLED BACK. NOTIFIED RT.ARM SWELLING AND BLISTERS. ORDER RECEIVED FOR USG OF RT.ARM.
[2019-02-19 07:10] LABS: Platelet Count (auto) 14 10^3/uL (140-450)
--- NOTE | 2019-02-19 07:50 | NUR ---
Placed call to Dr. Patel re: low platelet count, low Ca level, neuro status, atb change et Doppler result.
--- NOTE | 2019-02-19 08:33 | NUR ---
Placed another call to .
--- NOTE | 2019-02-19 09:10 | NUR ---
PATIENT'S PHONES - UPDATED ON PATIENT CURRENT CONDITION ET CURRENT POC - VERBALIZES UNDERSTANDING.
[2019-02-19] MEDS ORDERED: VANCOMYCIN PER PHARMACY 0 MG IV SCH (09:15)
--- NOTE | 2019-02-19 09:19 | NUR ---
DR GARCIA VISITS ET EXAMINES PATIENT - NEW ORDERS RECEIVED AFTER UPDATE ON LABS, ATB ET NEURO STATUS.
[2019-02-19] MEDS: VASOPRESSIN 50 UNITS in D5W 5% 247.5 ML IV SCH (09:21)
[2019-02-19] MEDS ORDERED: SODIUM CHLORIDE 0.9% 1,000 ML IV ONE (09:45)
[2019-02-19] MEDS: SODIUM BICARBONATE 50ML VIAL 50 ML in SODIUM CHLORIDE 0.9% 1,000 ML IV SCH ×3 (09:45→23:45)
[2019-02-19] MEDS ORDERED: VANCOMYCIN 1GM/250ML 250 ML IV ONE (10:00)
[2019-02-19] MEDS ORDERED: HEPARIN SODIUM (PORCINE) 5000 UNITS/ML 1ML VIAL SC SCH (10:00)
--- NOTE | 2019-02-19 10:10 | NUR ---
DR NAVARRO VISITS ET EXAMINES PATIENT - ORDERS RECEIVED.
[2019-02-19] MEDS ORDERED: ALBUMIN 25% 50 ML IV SCH (10:15)
[2019-02-19] MEDS ORDERED: MEROPENEM 1GM IVPB 100 ML IV SCH (11:00)
[2019-02-19] MEDS: PANTOPRAZOLE 40 MG/10 ML VIAL IV SCH (11:11)
--- NOTE | 2019-02-19 11:23 | NUR ---
DR MONTE VISITS ET EXAMINES PATIENT - ORDERS RECEIVED.
--- NOTE | 2019-02-19 11:45 | NUR ---
Patient's family visits et updated on patient condition - verbalized understanding.
--- NOTE | 2019-02-19 11:57 | NUR ---
Nutrition consult/ Follow-up Notes (new PN) Wt.: 74.6 kg Pt continues to be intubated off propofol today with no family by bedside. per records pt with drug overdose. pt is currently NPO initiated on PN support from last night @ 42 ml/hr providing 1050 kcals and 50 gm protein 850 NCP. pt with inadequate PN support as it meets 46-56% kcals and 66-80% proteins Est. Needs: 1850 kcal to 2250 kcal (25-30 kcal/kgBW), 60 gms to 75 gms pro (0.8-1.0 gms/kgBW r/t elev RFT). Will continue to monitor pertinent labs and reassess nutrient need prn Labs: PREALB <3.0 L, CA 6.3 L, ALB 1.3 L, GLU 117 H, TG 207 H, BUN 57 H, CREAT 3.8 H Skin: Ammon scale 14, mod risk, skin intact per transit manager. GI: Pt has no BM reported gastric drainage 200 ml per transit manager. PES: Increased nutrient needs r/t current/chronic medical condition aeb intubated, sedated, s/p surgery, severe hypoalbuminemia, NPO. Altered nutrition related lab values r/t current/chronic medical condition aeb hyperglycemia, hyponatremia, hypocapnia, hypochloremia, elev. renal labs, HbA1c, AST, hypocalcemia and severe hypoalbuminemia Will continue to monitor NPO status, PN tolerance, skin status, pertinent labs and weight trend. F/u in 2-3 days. Rec.: 1) advance PN support to meet > 75% of needs. 2) Advance gradually to oral diet when medically appropriate. 3.) Refer to CDE/RD for further nutrition education and weight monitoring upon discharged. 4.) Continue current plan of care.
[2019-02-19] MEDS: ALBUMIN 25% 50 ML IV SCH ×3 (16:00→23:50)
[2019-02-19] MEDS: MEROPENEM 1GM IVPB 100 ML IV SCH (16:00)
--- NOTE | 2019-02-19 19:00 | NUR ---
opening note assumed care of pt at this time. Report received from day shift RN. POC reviewed. Head to toe assessment complete, see intervention spreadsheet for complete details. received pt on ventilator. Sedation had been d/c since 12/21. Pt non responsive at this time. Received pt with OGT on LCS. abd binder in place. J tube draining serosanguineous fluid. IV sites benign. Pt extremities cool to touch. hands and feet are purplish with weak pulses. Pt has tight edematous skin. ABD binder in place s/p ex lap. Received pt on levo at 30 mcg and clarisa at 114 mcg. f/c draining to gravity. Suction and BVM at bedside. Bed locked and in lowest position, safety precautions in place. Will monitor pt carefully.
[2019-02-19] MEDS: AMINO ACID INFUSION IN D10W 1,000 ML IV NR (19:49)
[2019-02-19] MEDS ORDERED: TPN PER PHARMACY IV NR ×7 (20:00)
--- NOTE | 2019-02-19 20:45 | NUR ---
cooling measures initiated
[2019-02-19] MEDS: MIDAZOLAM DRIP 50 mg/50mL 50 ML IV SCH (21:00)
[2019-02-19] MEDS: PROPOFOL 100 ML IV SCH (21:00)
--- NOTE | 2019-02-19 21:00 | NUR ---
hospitalist at bedside to place arterial line
--- NOTE | 2019-02-19 21:21 | NUR ---
sister of pt requesting update does not have password, directed to call kris.
[2019-02-19] MEDS: IPRATROPIUM BROM 0.5 MG/2.5ML INH SOL NEB PRN (22:09)
[2019-02-19] MEDS: ALBUTEROL SULF 2.5 MG/0.5ML(0.5%) NEB SOLN NEB PRN (22:09)
--- NOTE | 2019-02-19 22:50 | NUR ---
SPOKE WITH ADELAIDA. PW TO BE CHANGED TO [place]EN[place]. IF FAMILY CALLS PLEASE DIRECT THEM TO SPEAK WITH REGARDING ANY INFORMATION FOR PATIENT. UPDATE PROVIDED.
--- NOTE | 2019-02-19 23:56 | NUR ---
at this time pt attempt to open eyes when name called and arm lightly tapped.
[2019-02-20] VITALS (104 sets, daily range): BP systolic 88–195; BP diastolic 40–85
[2019-02-20] MEDS ORDERED: FUROSEMIDE 20 MG/2 ML VIAL IV ONE (01:15)
[2019-02-20] MEDS: MIDAZOLAM DRIP 50 mg/50mL 50 ML IV SCH ×3 (01:36→16:54)
--- NOTE | 2019-02-20 01:40 | NUR ---
versed started at this time. Pt waking up. Pt breathing 25-30 and ventilator pressures increasing. Will assess for need.
--- NOTE | 2019-02-20 01:50 | NUR ---
cvp at this time 12
[2019-02-20] MEDS: ALBUTEROL SULF 2.5 MG/0.5ML(0.5%) NEB SOLN NEB PRN (02:24)
[2019-02-20] MEDS: IPRATROPIUM BROM 0.5 MG/2.5ML INH SOL NEB PRN (02:24)
--- NOTE | 2019-02-20 03:26 | NUR ---
Wound care photo taken of blister on right forearm that popped leaving pink skin tear. Form fast placed in folder.
[2019-02-20 03:30] LABS: Hemoglobin 8.6 g/dL (13.5-17.5); Mean Corpuscular Hemoglobin 31.4 pg (28.0-32.0); White Blood Cell 10.2 10^3/uL (4.4-10.8)
[2019-02-20 03:33] LABS: Hematocrit 24.8 % (41.0-53.0); Mean Corpuscular Hgb Conc. 34.8 g/dL (32.0-36.0); Mean Corpuscular Volume 90.2 fL (80.0-100.0); Red Blood Cells 2.75 10^6/uL (4.5-5.90)
[2019-02-20] MEDS: ALBUMIN 25% 50 ML IV SCH (03:36)
[2019-02-20 03:41] LABS: INR 1.12 (0.9-1.15); Prothrombin Time 11.9 sec (9.27-12.13)
[2019-02-20 03:47] LABS: % Iron Saturation 12.2 % (20-55)
[2019-02-20 03:48] LABS: Albumin 1.9 g/dL (3.4-5.0); Calcium 6.4 mg/dL (8.5-10.1); Magnesium 1.5 mg/dL (1.6-2.6)
--- NOTE | 2019-02-20 03:49 | NUR ---
DTI noted on right earlobe. Wound care photo taken.
[2019-02-20 03:52] LABS: BUN/Creatinine Ratio 17.3; Bilirubin, Total 1.3 mg/dL (0.2-1.0); Phosphorus 5.9 mg/dL (2.5-4.90); Total Protein 4.4 g/dL (6.4-8.2)
[2019-02-20] MEDS: MEROPENEM 1GM IVPB 100 ML IV SCH ×2 (04:11→16:47)
[2019-02-20 04:25] LABS: Platelet Count (auto) 19 10^3/uL (140-450)
[2019-02-20 04:26] LABS: Potassium 2.9 mmol/L (3.5-5.1)
[2019-02-20 04:28] LABS: Basophils % (manual) 0 (0.0-2.0); Blast Cells 0; Myelocytes % 0; Promyelocytes % 0; Reactive Lymphocytes 0
--- NOTE | 2019-02-20 04:33 | NUR ---
ka this am 2.9. Hospitalist paged. Platelets 19. Per Md Eng continue with platelet transfusion to maintain plt count >20,000. Order placed.
[2019-02-20 04:49] LABS: Folate (Folic Acid) 5.93 ng/mL (5.38-24)
[2019-02-20 04:54] LABS: Ferritin 208.8 ng/mL (10-322)
[2019-02-20] MEDS ORDERED: POTASSIUM CHL 20MEQ/100ML 100 ML IV ONE (05:00)
--- NOTE | 2019-02-20 05:04 | NUR ---
orders received from hospitalist for Ka replacement. Will carry out orders.
--- NOTE | 2019-02-20 05:10 | NUR ---
Bed bath provided for pt at this time. PT bathed with CHG wipes. Clean linens provided for patient. Suction tubing and canisters changed out. Pt tolerated ok, O2 sats decrease to 89% when turning. PT went back to 94% immediately.
[2019-02-20 05:41] LABS: Band Neutrophils % (manual) 16; Eosinophils % (manual) 1 (0-7); Lymphocytes % (manual) 4 (10.0-50.0); Metamyelocytes % 2; Monocytes % (manual) 6 (0-12)
[2019-02-20] MEDS: ACCU-CHEK COMFORT CURVE STRIP VI SCH ×3 (06:18→18:20)
[2019-02-20] MEDS: InsuLIN REG 1unit/0.01ml Soln (100units/ml) SC SCH ×3 (06:19→18:26)
[2019-02-20] MEDS ORDERED: MAGNESIUM SULFATE 1GM/100ML 100 ML IV ONE ×2 (09:06→09:15)
[2019-02-20] MEDS: MAGNESIUM SULFATE 1GM/100ML 100 ML IV SCH ×2 (09:13→10:00)
--- NOTE | 2019-02-20 09:30 | NUR ---
TRANSPORTED PT TO CT WITH NO INCIDENCE REPORTED. CARDIAC MONITORING AT BEDSIDE WITH 2 02 TANKS. AMBUBAG WITH MASK CONNECTED TO 02 TANK. VENTILATED PT USING TRANSPORT VENTILATOR. SPO2 92%.
[2019-02-20] MEDS: VASOPRESSIN 50 UNITS in D5W 5% 247.5 ML IV SCH (10:30)
[2019-02-20] MEDS: PHENYLEPHRINE INJ 80 MG in SODIUM CHL 0.9% 250 ML IV SCH (10:50)
[2019-02-20] MEDS: NOREPINEPHRINE BITARTRATE 32 MG in D5W 5% 218 ML IV SCH (10:53)
[2019-02-20] MEDS: SODIUM BICARBONATE 50ML VIAL 50 ML in SODIUM CHLORIDE 0.9% 1,000 ML IV SCH ×3 (11:00→14:15)
[2019-02-20] MEDS: PANTOPRAZOLE 40 MG/10 ML VIAL IV SCH (11:09)
[2019-02-20] MEDS ORDERED: CALCIUM GLUC 4.65meq/50ml D5AE 50 ML IV ONE (12:00)
[2019-02-20] MEDS: POTASSIUM CHL 20MEQ/100ML 100 ML IV SCH ×5 (12:11→22:59)
[2019-02-20] MEDS: AMIODARONE HCL 900 MG in DEXTROSE 500 ML IV SCH (15:00)
--- NOTE | 2019-02-20 17:37 | NUR ---
Resumed care at 0700. Orders reviewed and ongoing assessments being done. Being treated for multiple problems and remains intubated and sedated with Versed. Per night time babysitter report sedation had been turned off and had to be restarted due to increase in respiratory rate and not tolerating ventilator. Dr. Roca, neurologist was consulted. Rounded at 0755 am today. Assessment done and discussed plan of care. CT scan of the head was done today. Escorted by Debbie STINSON from 0930 to 1005 am tolerated transport to department and returned without incident. Also EEG was done at bedside per Dr. Roca. Dr. Rcoa obtained number from hard chart and called the patient's mother to discussed condition and plan of care. Dr. Myers plant health care technician and Dr. Az Barba, loader helper sorting yard rounded at 1015. Continue current plan of care. Dr. Helms, Hospitalist rounded at 1430. Examined and reviewed chart. Marybeth and son Ray at bedside and Dr. Helms spoke with both of them. He discussed all findings and reviewed plan of care, all questions answered. At this time remains intubated and sedated. Remains on Levophed gtt & Phenylephrine gtt for hemodynamic stability. Titrating as appropriate. Infusing via R IJ TLC. Amiodarone gtt also continues to infuse at a set rate, no episodes of AFIB, remains in a NSR. [place] to right groin remains intact and patient. No bleeding noted or hematoma. Removed midline to right arm at 0900. Documented DVT to right arm. Catheter intact and pressure held for 5 full minutes. No hematoma noted. Both hands and feet mottled. All nail beds dark purple blue. Worsening since shift progresses. Dr. Helms aware. Scrotum swollen and weeping, changing absorbent pad Q2hr around scrotum.
--- NOTE | 2019-02-20 19:15 | NUR ---
OPENING NOTE RECEIVED REPORT FROM EMIL STINSON. ASSUMED CARE OF PATIENT.
--- NOTE | 2019-02-20 19:30 | NUR ---
NOTIFIED WENDY WALTERS OF POTASSIUM LEVEL: NOTIFIED OF POTASSIUM LEVEL, NGT OUTPUT, URINE OUTPUT. ORDERS FOR 40 MEQ KCL, ORDERS READBACK AND VERIFIED.
[2019-02-20] MEDS ORDERED: TPN PER PHARMACY IV NR ×9 (20:00)
[2019-02-20] MEDS: MICAFUNGIN SODIUM 100 MG in SODIUM CHL 0.9% 100 ML IV SCH (20:06)
[2019-02-20] MEDS: PROPOFOL 100 ML IV SCH (21:32)
[2019-02-21] VITALS (114 sets, daily range): BP systolic 79–161; BP diastolic 37–73
[2019-02-21] MEDS: InsuLIN REG 1unit/0.01ml Soln (100units/ml) SC SCH ×4 (00:07→18:00)
[2019-02-21] MEDS: ACCU-CHEK COMFORT CURVE STRIP VI SCH ×4 (00:07→18:00)
[2019-02-21] MEDS: MEROPENEM 1GM IVPB 100 ML IV SCH ×2 (03:45→16:10)
[2019-02-21 03:53] LABS: Hematocrit 25.5 % (41.0-53.0); Hemoglobin 8.7 g/dL (13.5-17.5); White Blood Cell 7.3 10^3/uL (4.4-10.8)
[2019-02-21 03:56] LABS: Mean Corpuscular Hemoglobin 31.2 pg (28.0-32.0); Mean Corpuscular Hgb Conc. 34.2 g/dL (32.0-36.0); Mean Corpuscular Volume 91.2 fL (80.0-100.0); Red Blood Cells 2.79 10^6/uL (4.5-5.90); Red Cell Distribution Width 18.3 % (11.8-14.3)
[2019-02-21] MEDS: MIDAZOLAM DRIP 50 mg/50mL 50 ML IV SCH ×2 (04:14→23:44)
[2019-02-21 04:27] LABS: Albumin 1.5 g/dL (3.4-5.0); Calcium 7.1 mg/dL (8.5-10.1); Magnesium 2.2 mg/dL (1.6-2.6); Platelet Count (auto) 11 10^3/uL (140-450); Potassium 3.5 mmol/L (3.5-5.1)
[2019-02-21 04:28] LABS: Basophils % (manual) 0 (0.0-2.0); Blast Cells 0; Metamyelocytes % 0; Myelocytes % 0; Promyelocytes % 0; Reactive Lymphocytes 0
[2019-02-21 04:30] LABS: BUN/Creatinine Ratio 21.5; Bilirubin, Total 1.6 mg/dL (0.2-1.0); Phosphorus 4.9 mg/dL (2.5-4.90); Total Protein 4.2 g/dL (6.4-8.2)
[2019-02-21 05:02] LABS: Band Neutrophils % (manual) 30; Eosinophils % (manual) 1 (0-7); Lymphocytes % (manual) 8 (10.0-50.0); Monocytes % (manual) 7 (0-12)
[2019-02-21] MEDS: PHENYLEPHRINE INJ 80 MG in SODIUM CHL 0.9% 250 ML IV SCH ×2 (06:15→13:22)
[2019-02-21] MEDS: SODIUM BICARBONATE 50ML VIAL 50 ML in SODIUM CHLORIDE 0.9% 1,000 ML IV SCH ×3 (06:49→20:00)
[2019-02-21] MEDS: NOREPINEPHRINE BITARTRATE 32 MG in D5W 5% 218 ML IV SCH (08:38)
[2019-02-21] MEDS: PROPOFOL 100 ML IV SCH ×2 (08:41→22:39)
[2019-02-21] MEDS: AMIODARONE HCL 900 MG in DEXTROSE 500 ML IV SCH (09:02)
[2019-02-21] MEDS: PANTOPRAZOLE 40 MG/10 ML VIAL IV SCH (10:07)
[2019-02-21] MEDS: VASOPRESSIN 50 UNITS in D5W 5% 247.5 ML IV SCH (10:30)
--- NOTE | 2019-02-21 12:49 | NUR ---
Resumed care at 0700, orders reviewed and ongoing assessments being done. Being treated for multiple problems and remains intubated and sedated. To critical to try sedation vacation. Remains on Levophed and Phenylephrine gtt's for BP support, titrating as appropriate, both on maximum doses. Amiodarone remains at .5mg/min, no episodes of AFIB. Theresa to right groin remains intact and patent, no hematoma or bleeding at insertion site. Both feet and both hands remain mottled. Pulses to upper extremities very weak and barley palpable. Unable to palpate pulses on feet, use of Doppler. Dr. Roca rounded at 1210, examined and chart reviewed. Her spoke with Marybeth and extended family at bedside. Per Dr. Roca, poor prognosis. Provided emotional support.
--- NOTE | 2019-02-21 13:03 | NUR ---
Nutrition Follow-up Notes Wt.: 94.1 kg based on bed scale today Pt remains intubated, RT at bedside during rounds this morning. Pt's currently sedated with Propofol @ 5.715 ml/hr providing 151 kcal from Fat . Pt's NPO, currently on PPN @ 50 ml/hr providing 1260 kcal, 60 gms protein, 1020 NPCs. Pt with inadequate PN support d/t low initiation rate delivery of less concentrated formula aeb current PN infusion meets 63% to 76% of est caloric needs (with Propofol on board) and 80% to 100% of est protein needs. Noted pt's for active Neurology and David/Oncology consults. Est. Needs: 1850 kcal to 2250 kcal (25-30 kcal/kgBW), 60 gms to 75 gms pro (0.8-1.0 gms/kgBW r/t elev RFT). Will continue to monitor pertinent labs and reassess nutrient need prn Labs: Gluc 199 H, BUN 47 H, Cr 2.19 H, Ca 7.1 L, Tot malcom 1.6 H, AST 67 H, Tpro 4.2 L, Alb 1.5 L; Prealb <3.0 L, Trig 207 H Skin: Ammon scale 12, high risk, pt's sacrum blanchable erythema, R. L ear ? DTI per documentation spec. Pls refer to charge coordinator's notes 02/18/19 for further details re: tx plans. GI: Pt has no bowel activity since 02/16/19, on OGT to [facility], had gastric drainage 200 ml this morning per documentation spec. PES: Increased nutrient needs r/t current/chronic medical condition aeb intubated, sedated, s/p surgery, severe hypoalbuminemia, NPO. Altered nutrition related lab values r/t current/chronic medical condition aeb hyperglycemia, hyponatremia, hypocapnia, hypochloremia, elev. renal labs, HbA1c, AST, hypocalcemia and severe hypoalbuminemia Will continue to monitor NPO status, PN tolerance, skin status, pertinent labs and weight trend. F/u in 2 to 3 days. Rec.: 1.) If still NPO with PN support, consider gradual increase on calories to meet at least 75% of needs. 2.) Advance gradually to oral diet when medically appropriate. 3.) Refer to CDE/RD for further nutrition education and weight monitoring upon discharged. 4.) Continue current plan of care.
[2019-02-21] MEDS ORDERED: VANCOMYCIN 1,250 MG in D5W 5% 250 ML IV ONE (14:00)
--- NOTE | 2019-02-21 14:55 | NUR ---
Respiratory note: RR CHANGE PER DR. ANGLIN
--- NOTE | 2019-02-21 17:13 | NUR ---
Respiratory note: RECEIVING REPORT AT BEDSIDE. MILAD STEIN AT BEDSIDE CLEANING PT, RN COMMUNICATED PT DESATURATING. POX READING LOW 80S INCREASED FIO2 FROM 90% TO 100%. MILAD STEIN AWARE OF CHANGE.
--- NOTE | 2019-02-21 17:55 | NUR ---
WOUND CARE NOTE: Noted photographs taken by bedside nurse of patient's multiple skin integrity issue. Wound Care attempted to see patient for skin/wound assessment. Unable to see patient per wound care nurse "too unstable" to turn. Patient's family at bedside. Wound care will try to see patient at later time.
[2019-02-21] MEDS ORDERED: IRON SUCROSE COMPLEX 200 MG in SODIUM CHL 0.9% 100 ML IV SCH (18:00)
--- NOTE | 2019-02-21 18:54 | NUR ---
Dr. Helms rounded at 1321. Examined and chart reviewed. He spoke with Marybeth and extended family, he stated poor prognosis. DNR was discussed. At this time still a full code. Family will gather and make a decision. Will continue with full support. Dr. Eng, condemnation engineer rounded at 1619. Discussed condition and reviewed data. Would like 2 units of PLTS to be infused. Contacted blood bank and he spoke with staff regarding the need for the donor to be blood type O. Blood bank will follow up.
--- NOTE | 2019-02-21 18:56 | NUR ---
Respiratory note: RECEIVED PT ON VENT V19, ETT TO VENT, VENT CONNECTED TO RED OUTLET AND O2 SOURCE ALARMS ARE SET AND AUDIBLE. AMBU BAG AND MASK AT BEDSIDE. BS ARE COURSE T/O SXD SMALL THICK MICHAUD/WHITE SECRETIONS, RT NAME AND PAGER ASSIGNMENT WRITTEN ON PTS ROOM BOARD. CURRENT TEMP IS 95.9F. WILL CONTINUE TO MONITOR Q2H AND NEEDED.
--- NOTE | 2019-02-21 19:15 | NUR ---
OPENING NOTE REPORT RECEIVED FROM EMIL STINSON. ASSUMED CARE OF PATIENT. PATIENT IS INTUBATED AND UNRESPONSIVE WITH ET TUBE SIZE 8 AND 24 AT THE LIP. PATIENT IS ON LEVO 30, DIANE 180, VERSED 3, DIPRIVAN 15, TPN 60, BICARB 75, AND AMIODARONE 0.5. VENT SETTINGS: A/C MODE, RATE 20, TV 550, FIO2 100%, PEEP 5. WILL CONTINUE TO MONITOR
[2019-02-21] MEDS ORDERED: TPN PER PHARMACY IV NR ×10 (20:00)
--- NOTE | 2019-02-21 20:00 | NUR ---
FAMILY AT BEDSIDE SPOKE TO PATIENT'S VIVIANE. UPDATED ON PATIENT STATUS. IS STILL SPEAKING TO FAMILY AND HAVE NOT COME TO DECISION ON PATIENT STATUS. IS AT BEDSIDE AT THIS TIME
--- NOTE | 2019-02-21 20:20 | NUR ---
Respiratory note: AT BEDSIDE FOR ROUTINE VENT CHECK. NO CHANGES MADE AT THIS TIME. PTS FAMILY AT BEDSIDE. BS ARE COURSE T/O, SXD VIA ETT FOR MODERATE AMOUNT OF THICK PALE YELLOW, RN JIMMIE AT BEDSIDE. CURRENT TEMP IS 96.6 F.
--- NOTE | 2019-02-21 20:25 | NUR ---
POSITION TURNING DUE TO PATIENT STATUS, RESPIRATORY, AND DRIPS WE ARE NOT ABLE TO TURN PATIENT DUE TO DECLINE IN STATUS WHEN TURNED. WILL CONTINUE TO MONITOR
[2019-02-21] MEDS: MICAFUNGIN SODIUM 100 MG in SODIUM CHL 0.9% 100 ML IV SCH (20:34)
--- NOTE | 2019-02-21 20:36 | NUR ---
CODE STATUS: SPOKE WITH ADELAIDA, PATIENT'S , ABOUT PATIENT STATUS, AND CURRENT TREATMENT. PER ADELAIDA, IF PATIENT SUFFERS CARDIAC OR RESPIRATORY ARREST, SHE WISHES PATIENT TO BE DNR. BUT SHE WOULD LIKE TO CONTINUE CURRENT TREATMENT. ADELAIDA, SIGNED DNR FORM.
--- NOTE | 2019-02-21 20:36 | NUR ---
SPOKE WITH CHRISTOPHE RAMOS NP: NOTIFIED OF DR. ANGLIN'S ASSESSMENT OF POOR PROGNOSIS AND FAMILY WISHES FOR DNR STATUS. PER CHRISTOPHE RAMOS, SHE WILL BE BY SHORTLY.
--- NOTE | 2019-02-21 21:08 | NUR ---
SPOKE WITH BLOOD BANK - PLATELETS ARE BEING PUT IN THE SYSTEM NOW
--- NOTE | 2019-02-21 22:06 | NUR ---
BLOOD TRANSFUSION STARTED BLOOD TRANSFUSION STARTED. BLOOD TRANSFUSION BEGAN AT 60 ML/HR PER ORDER. NURSE AT BEDSIDE. WILL CONTINUE TO MONITOR
--- NOTE | 2019-02-21 22:21 | NUR ---
PATIENT TOLERATING BLOOD TRANSFUSION INCREASED INFUSION TO 200 ML/HR PER ORDER. PATIENT IS TOLERATING TRANSFUSION WELL. NO S/S OF REACTION. WILL CONTINUE TO MONITOR
--- NOTE | 2019-02-21 22:40 | NUR ---
Respiratory note: AT BEDSIDE FOR ROUTINE VENT CHECK. NO CHANGES MADE RN JIMMIE AND CROW AT BEDSIDE. CURRENT TEMP IS 98.6 F. WILL CONTINUE TO MONITOR.
--- NOTE | 2019-02-21 23:30 | NUR ---
1ST UNIT TRANSFUSED 1ST UNIT OF BLOOD TRANSFUSION COMPLETE. NO S/S OF TRANSFUSION REACTION. WILL HANG 2ND UNIT OF BLOOD TRANSFUSION. PATIENT TOLERATED WELL. WILL CONTINUE TO MONITOR.
--- NOTE | 2019-02-21 23:39 | NUR ---
2ND UNIT OF TRANSFUSION STARTED 2ND UNIT OF BLOOD TRANSFUSION STARTED. NURSE AT BEDSIDE. WILL CONTINUE TO MONITOR.
--- NOTE | 2019-02-21 23:55 | NUR ---
PATIENT TOLERATING 2ND UNIT OF BLOOD TRANSFUSION INCREASED INFUSION FROM 60 ML/HR TO 200 ML/HR PER ORDER AFTER 15 MINUTES. PATIENT IS TOLERATING TRANSFUSION WELL. NO S/S OF REACTION. WILL CONTINUE TO MONITOR
[2019-02-22] VITALS (107 sets, daily range): BP systolic 93–148; BP diastolic 35–75
--- NOTE | 2019-02-22 00:10 | NUR ---
Respiratory note: AT BEDSIDE FOR ROUTINE VENT CHECK. NO CHANGES MADE RN JIMMIE AT BEDSIDE. WILL CONTINUE TO MONITOR.
[2019-02-22] MEDS: InsuLIN REG 1unit/0.01ml Soln (100units/ml) SC SCH ×4 (00:21→18:54)
[2019-02-22] MEDS: ACCU-CHEK COMFORT CURVE STRIP VI SCH ×4 (00:22→18:00)
[2019-02-22] MEDS ORDERED: FUROSEMIDE 20 MG/2 ML VIAL ONE (00:54)
--- NOTE | 2019-02-22 00:55 | NUR ---
2ND UNIT TRANSFUSION COMPLETE PATIENT TOLERATED TRANSFUSION WELL. NO S/S OF REACTION. WILL CONTINUE TO MONITOR
--- NOTE | 2019-02-22 00:58 | NUR ---
SPOKE WITH CHRISTOPHE, SOCK LINING STITCHER: LUNG SOUNDS COARSE, DESATURATION TO MID 80s. X RAY SHOWS INCREASED INFILTRATES OR EDEMA. POOR UOP. ORDERS FOR 20 MG LASIX IVP X1 DOSE. ORDERS READBACK AND VERIFIED
[2019-02-22 02:21] LABS: Hematocrit 25.3 % (41.0-53.0); Hemoglobin 8.6 g/dL (13.5-17.5); Mean Corpuscular Hgb Conc. 34.1 g/dL (32.0-36.0); Red Cell Distribution Width 18.5 % (11.8-14.3)
[2019-02-22 02:22] LABS: Mean Corpuscular Hemoglobin 31.3 pg (28.0-32.0); Mean Corpuscular Volume 91.9 fL (80.0-100.0); Red Blood Cells 2.75 10^6/uL (4.5-5.90); White Blood Cell 8.4 10^3/uL (4.4-10.8)
--- NOTE | 2019-02-22 02:25 | NUR ---
TITRATED DIPRIVAN UP INCREASED DIPRIVAN FROM 15 TO 18
[2019-02-22 02:28] LABS: Platelet Count (auto) 19 10^3/uL (140-450)
[2019-02-22 02:29] LABS: Basophils % (manual) 0 (0.0-2.0); Eosinophils % (manual) 0 (0-7); Metamyelocytes % 0; Myelocytes % 0
[2019-02-22 02:30] LABS: Blast Cells 0; Promyelocytes % 0; Reactive Lymphocytes 0
--- NOTE | 2019-02-22 02:33 | NUR ---
PAGED RT - DESATURATING DOWN TO 85%
--- NOTE | 2019-02-22 02:40 | NUR ---
Respiratory note: AT BEDSIDE FOR ROUTINE VENT CHECK. BS ARE COURSE T/O, SXD MODERATE AMOUNT OF THICK CREAMY MICHAUD. MED NEB TX GIVEN INLINE WITHOUT ADVERSE REACTION NOTED. CURRENT TEMP IS 98.8 F. MILAD MARIA AT BEDSIDE. WILL CONTINUE TO MONITOR.
--- NOTE | 2019-02-22 02:40 | NUR ---
ASKED RT GRABIEL TO ADMINISTER MED NEB PRN
[2019-02-22] MEDS: ALBUTEROL SULF 2.5 MG/0.5ML(0.5%) NEB SOLN NEB PRN ×2 (02:55→19:54)
[2019-02-22] MEDS: IPRATROPIUM BROM 0.5 MG/2.5ML INH SOL NEB PRN ×2 (02:55→19:54)
[2019-02-22] MEDS: NOREPINEPHRINE BITARTRATE 32 MG in D5W 5% 218 ML IV SCH ×2 (03:14→22:14)
--- NOTE | 2019-02-22 03:30 | NUR ---
ABDOMINAL DRESSING CHANGED ABDOMINAL INCISION CLEAN, DRY, INTACT, NO DRAINAGE, WELL APPROXIMATED, AND FRANCES INTACT, CLEANSED WITH CHLORHEXIDINE SWABS, COVERED WITH GAUZE, AND SEALED WITH MEDIPORE. PATIENT TOLERATED PROCEDURE WELL.
--- NOTE | 2019-02-22 03:50 | NUR ---
INQUIRED WITH LAB ABOUT CHEMISTRY PANEL, PER LAB ~ 3 MINUTES
--- NOTE | 2019-02-22 04:00 | NUR ---
LINEN AND POSITION CHANGE LINENS CHANGED, POSITION CHANGED AND MOVED UP IN BED. PATIENT TOLERATED POSITION CHANGE WELL. WILL CONTINUE TO MONITOR
[2019-02-22 04:01] LABS: Albumin 1.5 g/dL (3.4-5.0); BUN/Creatinine Ratio 24.7; Calcium 7.5 mg/dL (8.5-10.1); Magnesium 2.2 mg/dL (1.6-2.6); Potassium 3.7 mmol/L (3.5-5.1)
[2019-02-22 04:04] LABS: Bilirubin, Total 2.9 mg/dL (0.2-1.0); Total Protein 4.1 g/dL (6.4-8.2)
[2019-02-22] MEDS: MEROPENEM 1GM IVPB 100 ML IV SCH ×2 (04:27→18:00)
[2019-02-22 04:45] LABS: Band Neutrophils % (manual) 9; Lymphocytes % (manual) 10 (10.0-50.0); Monocytes % (manual) 3 (0-12)
--- NOTE | 2019-02-22 05:06 | NUR ---
PAGED MILL TENDER WARM UP HOSPITALIST
--- NOTE | 2019-02-22 05:10 | NUR ---
SPOKE WITH CHRISTOPHE RAMOS NP: NOTIFIED CHRISTOPHE RAMOS ABOUT SpO2< 90% DESPITE LASIX AND MED NEBS BE GIVEN. ORDERS TO INCREASE PEEP TO 8. ORDERS READBACK AND VERIFIED
[2019-02-22] MEDS: PHENYLEPHRINE INJ 80 MG in SODIUM CHL 0.9% 250 ML IV SCH (05:23)
--- NOTE | 2019-02-22 06:54 | NUR ---
UPDATED FAMILY: SPOKE WITH ADELAIDA, , AFTER PW VERIFIED. UPDATED ON STATUS. ANSWERED ALL QUESTIONS ABLE
--- NOTE | 2019-02-22 07:30 | NUR ---
CLOSING NOTE REPORT GIVEN AND ENDORSED CARE TO FABIÁN STINSON.
--- NOTE | 2019-02-22 07:55 | NUR ---
HONORIO PEREZ FOR CRITICAL ABG
--- NOTE | 2019-02-22 08:00 | NUR ---
TURNING HELD AT THIS TIME DUE TO UNSTABLE HEMODYNAMICS, ON MAX RATED OF 2 VASOPRESSORS AND FIO2 AT 100%. WILL CONTINUE TO REASSESS
--- NOTE | 2019-02-22 09:00 | NUR ---
DR GANNON AT BEDSIDE UPDATED ON FAMILY CHANGING CODE STATUS LAST NIGHT. NO NEW ORDERS AT THIS TIME
[2019-02-22] MEDS: PANTOPRAZOLE 40 MG/10 ML VIAL IV SCH (10:00)
[2019-02-22] MEDS ORDERED: VANCOMYCIN 1,250 MG in D5W 5% 250 ML IV ONE (10:00)
--- NOTE | 2019-02-22 10:00 | NUR ---
SPOKE WITH DR ANGLIN REGARDING ABG, RECEIVED NEW ORDERS
[2019-02-22] MEDS: VASOPRESSIN 50 UNITS in D5W 5% 247.5 ML IV SCH (10:30)
--- NOTE | 2019-02-22 11:04 | NUR ---
INDUSTRIAL RELATIONS MANAGER AR BEDSIDE HEMODYNAMICALLY UNSTABLE FOR TURNING TO ASSESS BACKSIDE AT THIS TIME
--- NOTE | 2019-02-22 11:08 | NUR ---
WOUND CARE NOTE: Wound care in to see patient for skin assessment. Patient developed new skin integrity issue, bedside nurse took photographs for reference. Patient continue resting in ICU bed in Rm. 107. He's still intubated, sedated and mechanically ventilated. Patient still too unstable to turn per RN's report. His current Ammon score is 8. Unable to turn patient to assess sacral and back bony prominences. Patient has generalized edema and developed multiple serum filled blister to arms,hand and feet, which some opened up to partial thickness skin tears. Bedside nurse covered multiple skin tears with Opti foam gentle dressing per MD order. His limbs, particularly the hand, digits, plantar foot and toes has purple discoloration and so the lateral ear pinna with multi serum filled blisters. Patient also developed scrotal edema with weeping skin tears with moderate serosanguineous drainage. Bedside nurse managing moisture with application of absorbent pad. Patient is on TPN and Dietary is on board. RECOMMENDATION: Continuation of all wound care orders prescribed by MD, continue with skin/wound plan of care, Continue monitoring by Wound care while patient is mechanically ventilated.
--- NOTE | 2019-02-22 11:27 | NUR ---
PATIENTS VIVIANE AND FAMILY AT BEDSIDE UPDATED ON CURRENT STATUS.
[2019-02-22] MEDS ORDERED: SODIUM FERR GLUC 62.5MG/5ML 125 MG in SODIUM CHL 0.9% 100 ML IV SCH (12:00)
[2019-02-22] MEDS: IRON SUCROSE COMPLEX 200 MG in SODIUM CHL 0.9% 100 ML IV SCH (13:30)
--- NOTE | 2019-02-22 15:00 | NUR ---
DR ANGLIN AT BEDSIDE
[2019-02-22] MEDS: fentaNYL Drip 2500mCg/250mlNS 250 ML IV SCH (15:30)
[2019-02-22] MEDS: AMIODARONE HCL 900 MG in DEXTROSE 500 ML IV SCH (17:00)
--- NOTE | 2019-02-22 17:22 | NUR ---
DR DANIELLE AT BEDSIDE
--- NOTE | 2019-02-22 17:45 | NUR ---
ASSESSED PATIENTS BACK AND SACRAL AREA, NOTED PRESSURE ARE AND DISCOLORATION, DTI. UNABLE TO TAKE PICTURE DUE TO UNABLE TO STAY TURNED DUE TO HEMODYNAMICS. OXYGEN SATURATION DECLINES TO 88%, BLOOD PRESSURE DECLINES TO SBP 90S APPLIED OPTIFOAM
--- NOTE | 2019-02-22 18:15 | NUR ---
SPOKE WITH PATIENTS VIVIANE, SHE STATES SHE DOES NOT WANT ANY OTHER VASOPRESSORS ADDED IF PATIENTS BP DECLINES. ONLY LEVOPHED AND DAINE
--- NOTE | 2019-02-22 19:30 | NUR ---
OPENING NOTE: INTUBATED AND SEDATED. NO PAIN BEHAVIORS IDENTIFIED. NSR, HR 80s. A-LINE PRESSURES 110s, MAP >65; NIBP 110s, ON LEVO AND DIANE GTT. 8.0 ETT, 24 AT THE LIP. COARSE AND WHEEZING LUNG SOUNDS THROUGHOUT, DIMINISHED TO BASES. EVEN AND UNLABORED BREATHING. SpO2> 92% ON CURRENT VENT SETTINGS. CREAMY ETT SECRETIONS, BLOODY ORAL SECRETIONS. CRUSTED DRIED OLD BLOOD TO LIPS. ABD FIRM, DISTENDED. MLI WITH FRANCES, DRESSING INTACT. CECIL WITH SEROSANG DRAINAGE. OGT LCS, THICK MUCOID BILIOUS. BURNS PATENT AND INTACT, DRAINING MINIMAL DIAN URINE. SCROTUM WITH EXTREME SWELLING, OOZING SEROSANG DRAINAGE. MULTIPLE SKIN WOUNDS NOTED THROUGHOUT. SEE SKIN AND WOUND FLOWSHEET FOR ASSESSMENT. RIGHT IJ CVC, PATENT WITH BLOOD RETURN, CDI. LEFT UPPER ARM MIDLINE, PATENT WITH BLOOD RETURN AND CDI. REINFORCED POC. MAINTAINED PATIENT SAFETY: BED LOCKED AND IN THE LOWEST POSITION. FREQUENT VISUAL CHECKS.
[2019-02-22] MEDS: MICAFUNGIN SODIUM 100 MG in SODIUM CHL 0.9% 100 ML IV SCH (19:52)
[2019-02-22] MEDS ORDERED: TPN PER PHARMACY IV NR ×9 (20:00)
--- NOTE | 2019-02-22 21:02 | NUR ---
DIPRIVAN WASTED: WASTED 90 ML OF DIPRIVAN INTO SECURED CONTAINER IN MED ROOM. WITNESSED BY MILAD XIONG
[2019-02-23] VITALS (105 sets, daily range): BP systolic 94–153; BP diastolic 37–61
[2019-02-23] MEDS: InsuLIN REG 1unit/0.01ml Soln (100units/ml) SC SCH ×4 (00:09→21:09)
[2019-02-23] MEDS: ACCU-CHEK COMFORT CURVE STRIP VI SCH ×4 (00:09→20:31)
--- NOTE | 2019-02-23 00:30 | NUR ---
DESATURATION DOWN TO 86% - NOTIFIED ANAND, NETWORK DESIGN ARCHITECT: FiO2 INCREASED TO 95%
[2019-02-23] MEDS: PHENYLEPHRINE INJ 80 MG in SODIUM CHL 0.9% 250 ML IV SCH (01:04)
[2019-02-23] MEDS: MEROPENEM 1GM IVPB 100 ML IV SCH ×2 (03:36→19:24)
[2019-02-23 04:16] LABS: Hemoglobin 8.4 g/dL (13.5-17.5)
[2019-02-23 04:18] LABS: Hematocrit 24.8 % (41.0-53.0); Mean Corpuscular Hemoglobin 31.3 pg (28.0-32.0); Mean Corpuscular Hgb Conc. 33.7 g/dL (32.0-36.0); Mean Corpuscular Volume 92.7 fL (80.0-100.0); Red Blood Cells 2.67 10^6/uL (4.5-5.90); Red Cell Distribution Width 18.4 % (11.8-14.3); White Blood Cell 11.5 10^3/uL (4.4-10.8)
[2019-02-23 04:20] LABS: Potassium 4.3 mmol/L (3.5-5.1)
[2019-02-23 04:27] LABS: Albumin 1.1 g/dL (3.4-5.0); BUN/Creatinine Ratio 27.2; Bilirubin, Total 4.5 mg/dL (0.2-1.0); Calcium 7.7 mg/dL (8.5-10.1); Magnesium 2.7 mg/dL (1.6-2.6); Phosphorus 3.5 mg/dL (2.5-4.90); Total Protein 3.8 g/dL (6.4-8.2)
[2019-02-23] MEDS: IPRATROPIUM BROM 0.5 MG/2.5ML INH SOL NEB PRN ×2 (04:34→06:28)
[2019-02-23] MEDS: ALBUTEROL SULF 2.5 MG/0.5ML(0.5%) NEB SOLN NEB PRN ×2 (04:34→06:28)
--- NOTE | 2019-02-23 04:38 | NUR ---
BED BATH WITH CHG WIPES, MICHELLE CARE, BURNS CARE, ORAL CARE, AND HAIR CARE
--- NOTE | 2019-02-23 04:39 | NUR ---
WOUND CARE: CLEANSED ALL OPEN SKIN TEARS (RIGHT FOOT, RIGHT UPPER EXTREMITY, LEFT UPPER EXTREMITY) WITH CHG WIPES. COVERED WITH OPTIFOAM. SCROTUM: CLEANSED WITH SOAP AND WATER. PAT DRY. COVERED WITH ABD PAD AND CHUX.
[2019-02-23 04:40] LABS: Platelet Count (auto) 5 10^3/uL (140-450)
--- NOTE | 2019-02-23 04:45 | NUR ---
CRITICAL PLATELET LEVEL 5: PATIENT WITH KNOWN THROMBOCYTOPENIA, WILL PASS ON TO DAY SHIFT. PATIENT NOTED WITH PETECHIAE
[2019-02-23 04:57] LABS: Basophils % (manual) 0 (0.0-2.0); Blast Cells 0; Metamyelocytes % 0; Myelocytes % 0; Promyelocytes % 0; Reactive Lymphocytes 0
--- NOTE | 2019-02-23 05:14 | NUR ---
PARTIAL LINEN CHANGE COMPLETED: CHUX COMPLETED AND OVERLY SATURATED WITH SEROSANG DRAINAGE
--- NOTE | 2019-02-23 06:00 | NUR ---
SPOKE WITH PATIENT'S FAMILY
--- NOTE | 2019-02-23 06:07 | NUR ---
BG 143 - INSULIN HELD: PATIENT WAS CONSISTENTLY IN THE 200s, NOW DOWN TO 143. WILL HOLD INSULIN
[2019-02-23 06:50] LABS: Band Neutrophils % (manual) 9; Eosinophils % (manual) 1 (0-7); Lymphocytes % (manual) 20 (10.0-50.0); Monocytes % (manual) 1 (0-12)
--- NOTE | 2019-02-23 07:18 | NUR ---
REPORT AND CARE ENDORSED TO MILAD LOCKWOOD
--- NOTE | 2019-02-23 08:15 | NUR ---
TURNING HELD AT THIS TIME PATIENT HEMODYNAMICS UNSTABLE, ON FiO2 100%, MAX RATE ON 2 VASOPRESSORS. WILL CONTINUE TO REASSESS
--- NOTE | 2019-02-23 09:15 | NUR ---
DR GANNON AT BEDSIDE DISCUSSED PLAN OF CARE. NO NEW ORDERS AT THIS TIME
[2019-02-23] MEDS: PANTOPRAZOLE 40 MG/10 ML VIAL IV SCH (10:00)
--- NOTE | 2019-02-23 10:00 | NUR ---
PATIENTS VIVIANE AT BEDSIDE UPDATED ON CURRENT STATUS
[2019-02-23] MEDS: VASOPRESSIN 50 UNITS in D5W 5% 247.5 ML IV SCH (10:30)
--- NOTE | 2019-02-23 11:10 | NUR ---
Nutrition Follow-up Notes Wt.: 101.0 kg based on bed scale today. Noted 6.8 kg weight gain in last 2 days likely d.t ? fluid retention aeb positive I & Os for past few days. Pt remains intubated, sedated ,a family friend at bedside during rounds earlier. Pt's currently NPO,with TPN @ 56 ml/hr providing 1400 kcal, 70 gms protein, 1120 NPCs and 7% Fat. Pt with inadequate PN support d/t mod initiation rate delivery of concentrated formula aeb current PN infusion meets 62% to 76% of est caloric needs and meets 77% to 93% of est protein needs. Est. Needs: 1850 kcal to 2250 kcal (25-30 kcal/kgBW), 75 gms to 90 gms pro (1.0-1.2 gms/kgBW reassessed r/t severe hypoalbuminemia/elev RFT, improving). Will continue to monitor pertinent labs and reassess nutrient need prn Labs: Gluc 163 H, BUN 68 H, Cr 2.50 H, Ca 7.7 L, Mg 2.7 H, Tpro 3.8 L, Alb 1.1 L; Prealb <3.0 L, Trig 207 H Skin: Ammon scale 8, high risk, pt's right arm open blisters, left right sacrum skin tear, R. L ear ? DTI per flight nurse. Pls refer to refinery operator reforming unit's notes today for further details re: tx plans. GI: Pt has no bowel activity since 02/16/19, on OGT to [facility], had gastric drainage 350 ml this morning per flight nurse. PES: Increased nutrient needs r/t current/chronic medical condition aeb intubated, sedated, s/p surgery, severe hypoalbuminemia, NPO. Altered nutrition related lab values r/t current/chronic medical condition aeb hyperglycemia, hyponatremia, hypocapnia, hypochloremia, elev. renal labs, HbA1c, AST, hypocalcemia and severe hypoalbuminemia Will continue to monitor NPO status, PN tolerance, skin status, pertinent labs and weight trend. F/u in 2 to 3 days. Rec.: 1.) If still NPO with PN support, consider gradual increase on calories to meet at least 75% of needs. 2.) Advance gradually to oral diet when medically appropriate. 3.) Refer to CDE/RD for further nutrition education and weight monitoring upon discharged. 4.) Continue current plan of care.
[2019-02-23] MEDS: IRON SUCROSE COMPLEX 200 MG in SODIUM CHL 0.9% 100 ML IV SCH (12:56)
--- NOTE | 2019-02-23 16:15 | NUR ---
TEMPERATURE PATIENTS TEMPERATURE DECREASING DESPITE WARMING BLANKET, WARMING BLANKETS APPLIED AND WARMING LIGHT TURNED ON. WILL CONTINUE TO MONITOR CLOSELY
--- NOTE | 2019-02-23 17:29 | NUR ---
DR POSEY CALLED TO SPEAK WITH PATIENTS KALI BACH AT PATIENTS REQUEST. DISCUSSED PATIENTS CONDITION AND PLAN OF CARE
--- NOTE | 2019-02-23 18:00 | NUR ---
DR DANIELLE AT BEDSIDE NO NEW ORDERS AT THIS TIME
--- NOTE | 2019-02-23 19:30 | NUR ---
OPENING SHIFT NOTE Received report from MILAD Lindsay. Pt resting in bed, intubated with sedation and vasopressors infusing. Pt receiving maximum dose of Levophed, high dose of Carter-Synephrine, and FiO2 of 85%; turning held at this time. Will continue to reassess. See IV spreadsheet and completed physical assessment intervention. Bed locked, in lowest position with top two side rails up, and call light within reach. All alarms on and audible. Will continue to monitor pt.
[2019-02-23] MEDS ORDERED: TPN PER PHARMACY IV NR ×8 (20:00)
--- NOTE | 2019-02-23 20:09 | NUR ---
SON AT BEDSIDE Pt's son, Zachariah at bedside. Updated on pt condition. Zachariah verbalized understanding and had no questions.
[2019-02-23] MEDS: MICAFUNGIN SODIUM 100 MG in SODIUM CHL 0.9% 100 ML IV SCH (20:24)
[2019-02-23] MEDS: MIDAZOLAM DRIP 50 mg/50mL 50 ML IV SCH (21:00)
[2019-02-23] MEDS: PROPOFOL 100 ML IV SCH (21:00)
--- NOTE | 2019-02-23 21:00 | NUR ---
VISITORS Pt's son, Reed and Reed's girlfriend at bedside. Updated on pt condition and answered all questions. Reed verbalized understanding.
--- NOTE | 2019-02-23 21:13 | NUR ---
DR. JAMES AT BEDSIDE Dr. James at bedside speaking with pt's son, Reed. Updated on pt condition and no new orders received.
--- NOTE | 2019-02-23 21:40 | NUR ---
AT BEDSIDE Pt's , Marybeth at bedside. Updated on pt condition and answered all questions. Marybeth verbalized understanding.
[2019-02-23] MEDS: AMIODARONE HCL 900 MG in DEXTROSE 500 ML IV SCH (21:41)
--- NOTE | 2019-02-23 21:53 | NUR ---
DR. JAMES AT BEDSIDE WITH PT'S AND SON Dr. James at bedside speaking with pt's , Marybeth and son Reed.
[2019-02-24] VITALS (65 sets, daily range): BP systolic 86–150; BP diastolic 31–62
[2019-02-24] MEDS: ACCU-CHEK COMFORT CURVE STRIP VI SCH ×3 (00:42→12:07)
[2019-02-24] MEDS: InsuLIN REG 1unit/0.01ml Soln (100units/ml) SC SCH ×3 (00:45→12:11)
[2019-02-24] MEDS: fentaNYL Drip 2500mCg/250mlNS 250 ML IV SCH (00:46)
[2019-02-24] MEDS: PHENYLEPHRINE INJ 80 MG in SODIUM CHL 0.9% 250 ML IV SCH (01:27)
[2019-02-24 03:57] LABS: Potassium 4.9 mmol/L (3.5-5.1)
[2019-02-24 04:02] LABS: Calcium 8.4 mg/dL (8.5-10.1)
[2019-02-24 04:05] LABS: BUN/Creatinine Ratio 25.9
[2019-02-24 04:08] LABS: Bilirubin, Total 7.2 mg/dL (0.2-1.0); Total Protein 3.7 g/dL (6.4-8.2)
[2019-02-24] MEDS: MEROPENEM 1GM IVPB 100 ML IV SCH (04:26)
[2019-02-24 04:56] LABS: Magnesium 2.6 mg/dL (1.6-2.6)
[2019-02-24 04:59] LABS: Phosphorus 3.5 mg/dL (2.5-4.90)
--- NOTE | 2019-02-24 06:00 | NUR ---
BATH/LINEN CHANGE/DRESSING CHANGES Pt given complete CHG bath. Skin integrity assessed for any changes, additional blisters to BLE and new opened blister to right forearm noted. Dressings to open blisters on right arm, left elbow, right foot, midabdominal incision, and left abdominal CECIL drain insertion site changed using sterile technique. Linens changed. Pt repositioned for comfort. Pt tolerated fairly.
--- NOTE | 2019-02-24 06:37 | NUR ---
PHONE CALL FROM Received phone call from pt's , Pat who provided the correct password. Updated on pt condition and answered all questions. Pat verbalized understanding and stated she will try to come in at 0830 this morning.
--- NOTE | 2019-02-24 07:30 | NUR ---
REPORT Report given to MILAD Bruno. Care endorsed.
[2019-02-24] MEDS: NOREPINEPHRINE BITARTRATE 32 MG in D5W 5% 218 ML IV SCH (07:50)
--- NOTE | 2019-02-24 08:00 | NUR ---
INITIAL/ONGOING ASSESSMENT; Patient with large areas of petechiae over torso, fingers noted to be blackened and shriveled, toes and feet pale/purple. Patient with multiple multiple intact and denuded blisters on upper and lower extremities. Currently on high dose vasopressor support, see IV spreadsheet. A-line in place to right femoral, line zeroed, good waveform tracing. Plan per report is for tentative terminal wean today when family is ready.
--- NOTE | 2019-02-24 09:20 | NUR ---
AT BEDSIDE: Dr. Lunsford at bedside, informed him of tentative plan for a terminal wean today. No further orders at this time.
[2019-02-24] MEDS: PANTOPRAZOLE 40 MG/10 ML VIAL IV SCH (09:32)
[2019-02-24] MEDS ORDERED: VANCOMYCIN 1GM/250ML 250 ML IV ONE (10:00)
--- NOTE | 2019-02-24 10:00 | NUR ---
BARRIER CREAM/SACRAL SKIN CARE; Due to instability patient is not able to tolerate turning required to perform skin care to sacral area. Addendum: 02/24/19 at 1323 by Damion Aleman RN Amended: Links added.
[2019-02-24] MEDS: VASOPRESSIN 50 UNITS in D5W 5% 247.5 ML IV SCH (10:30)
--- NOTE | 2019-02-24 11:31 | NUR ---
FAMILY AT BEDSIDE: Patient's Pat at bedside, states that the plan for withdrawal of care today. Discussed with her that there is no pressure and that everything should be done as the family is ready. Updated her that there has been no improvement in patient condition and that he is requiring slightly more vasopressors than yesterday. Await Dr. Skaggs to make rounds.
[2019-02-24] MEDS: IRON SUCROSE COMPLEX 200 MG in SODIUM CHL 0.9% 100 ML IV SCH (11:54)
[2019-02-24] MEDS ORDERED: HYDROmorphone HCL 2 MG/ML VL IV PRN (14:00)
[2019-02-24] MEDS ORDERED: MIDAZOLAM HCL 1MG/1ML-2 ML VIAL IV PRN (14:00)
--- NOTE | 2019-02-24 14:00 | NUR ---
AT BEDSIDE: Dr. Skaggs at bedside, spoke with patient's Pat. Plan for terminal extubation when family is ready, all drips to continue until family is ready to proceed.
--- NOTE | 2019-02-24 16:19 | NUR ---
I called [facility] and spoke with correctional case manager Thad to give her a verbal update on the plan of care for this patient.
[2019-02-24] MEDS ORDERED: LORazepam 2MG/ML-1ML VIAL ONE (16:59)
[2019-02-24] MEDS ORDERED: LORazepam 2MG/ML-1ML VIAL IV PRN (17:00)
--- NOTE | 2019-02-24 17:00 | NUR ---
TERMINAL WEAN; All family present at bedside, ready for terminal extubation. Faizan [facility] at bedside. Patient medicated as per comfort care orders with Dilaudid and Ativan IV. All family wishes to remain present in room during extubation. Addendum: 02/24/19 at 1812 by Damion Aleman RN All drips turned off prior to removal of ETT.
--- NOTE | 2019-02-24 17:07 | NUR ---
ASYSTOLE: Patient asystole, strip printed. Family notified that patient no long has a heart beat. Mario [place] NP paged to pronounce.
--- NOTE | 2019-02-24 17:45 | NUR ---
[facility]; Call placed to [facility], state that patient possible candidate for corneal donation. Reference number [id number].
--- NOTE | 2019-02-24 18:05 | NUR ---
HAND HARDENER Call placed to tiltrotor crew chief for clearance for further removal of lines. Patient information given, await return call.
--- NOTE | 2019-02-24 19:30 | NUR ---
OPENING SHIFT NOTE Received report from MILAD Bruno. Pt in bed with all lines in place. No family at bedside. Awaiting return phone calls from [facility] and the keno manager.
--- NOTE | 2019-02-24 19:53 | NUR ---
PHONE CALL FROM [facility] Received phone call from Georgette with [facility]. Updated on pt status and informed Georgette of return phone call pending from lockstitch pocket setter. Georgette stated she will call back at a later time.
--- NOTE | 2019-02-24 19:56 | NUR ---
PHONE CALL FROM COMPUTER CONSULTANT'S OFFICE Received phone call from Esther Gaston who stated she was the accounting clerks supervisor from the childcare aide's office. Per Esther, a deputy will not be available to received report for approximately an hour. Awaiting return phone call.
[2019-02-24] MEDS ORDERED: TPN PER PHARMACY IV NR ×8 (20:00)
--- NOTE | 2019-02-24 20:07 | NUR ---
FAMILY AT BEDSIDE Pt's , Pat, son, and additional family members at bedside. Updated Pat on interchange agent's status and answered all questions. Pat verbalized understanding.
--- NOTE | 2019-02-24 21:51 | NUR ---
[facility] Received phone call from Sarah with [facility]. Updated on pt's status. Notified Sarah that the debt and budget counselor has not called back yet. Sarah verbalized understanding and stated she will call back at a later time.
--- NOTE | 2019-02-24 22:05 | NUR ---
[facility] NO LONGER PURSUING DONATION Received phone call from Sarah with [facility] who stated they are no longer pursuing donation ( ).
--- NOTE | 2019-02-24 22:45 | NUR ---
PHONE CALL FROM CNC SUPERVISOR'S OFFICE Received phone call from Deputy Joann Tolentino. Answered all questions from Deputy Tolentino. Per Deputy Tolentino, this will be a roll forming machine operator's case. Deputy Tolentino requested pt's chart to be faxed to [phone].
--- NOTE | 2019-02-24 23:01 | NUR ---
UNABLE TO FAX REQUESTED DOCUMENTS Received no response when attempt was made to fax Deputy Tolentino's requested chart. Called and spoke with Deputy Tolentino who provided a second fax number of [phone]. Will attempt to fax requested documents again.
--- NOTE | 2019-02-25 01:05 | NUR ---
CHURCH HISTORY PROFESSOR'S REQUESTED DOCUMENTS FAX COMPLETED [place] Randa's requested documentation fax completed. Awaiting return phone call.
--- NOTE | 2019-02-25 01:29 | NUR ---
CASE NUMBER FROM SHINE WORKER'S OFFICE Received return phone call from Deputy Tolentino. Deputy Tolentino notified of the morgue being full and [facility] of the [facility] will do a courtesy hold. Per Deputy Tolentino, pt is okay to be held at [facility] for a courtesy hold but all lines and tubes cannot be removed. Deputy Tolentino provided case number of [id number].
--- NOTE | 2019-02-25 01:32 | NUR ---
CALL TO [facility] Called and spoke with Cori at [facility]. Notified of pouncer's case. Per Cori, solar field service technician will be calling with ETA for pt pick-up.
--- NOTE | 2019-02-25 01:51 | NUR ---
ETA FROM [facility] Received call from Ty with [facility]. Per Ty, the ETA is within 60 minutes for pt pick-up.
--- NOTE | 2019-02-25 02:40 | NUR ---
[facility] PICK-UP [facility]' technicians transported pt off unit for courtesy hold. All lines and tubes remained in place.d
== END 2019-02-24 17:07 | disposition expired | DRG 710 ==
LOC: EDBD 22:58 → ER 23:02 → TELE 02-16 06:35 → ICU WEST 02-16 09:08
PROVIDERS: ADMIT Nurse Practitioner Family; ATTEND Internal Medicine
PROC: 5A1955Z Respiratory Ventilation, Greater than 96 Consecutive Hours (ICD-10-PCS; 2019-02-16)
PROC: 0BH17EZ Insertion of Endotracheal Airway into Trachea, Via Natural or Artificial Opening (ICD-10-PCS; 2019-02-16)
PROC: 02H633Z Insertion of Infusion Device into Right Atrium, Percutaneous Approach (ICD-10-PCS; 2019-02-16)
PROC: B244ZZZ Ultrasonography of Right Heart (ICD-10-PCS; 2019-02-16)
PROC: 30233R1 Transfusion of Nonautologous Platelets into Peripheral Vein, Percutaneous Approach (ICD-10-PCS; 2019-02-17)
PROC: 0W9G00Z Drainage of Peritoneal Cavity with Drainage Device, Open Approach (ICD-10-PCS; 2019-02-18)
PROC: 02HV33Z Insertion of Infusion Device into Superior Vena Cava, Percutaneous Approach (ICD-10-PCS; 2019-02-18)
PROC: 0DQ90ZZ Repair Duodenum, Open Approach (ICD-10-PCS; principal; 2019-02-18 08:46)
PROC: 03HY32Z Insertion of Monitoring Device into Upper Artery, Percutaneous Approach (ICD-10-PCS; 2019-02-19)
DX: A41.9 Sepsis, unspecified organism (principal); J96.01 Acute respiratory failure with hypoxia; I63.9 Cerebral infarction, unspecified; K26.5 Chronic or unspecified duodenal ulcer with perforation; J15.211 Pneumonia due to Methicillin susceptible Staphylococcus aureus; N17.0 Acute kidney failure with tubular necrosis; R65.21 Severe sepsis with septic shock; D61.818 Other pancytopenia; K65.9 Peritonitis, unspecified; T43.622A Poisoning by amphetamines, intentional self-harm, initial encounter; G92 Toxic encephalopathy; E11.21 Type 2 diabetes mellitus with diabetic nephropathy; D68.69 Other thrombophilia; E44.0 Moderate protein-calorie malnutrition; I48.92 Unspecified atrial flutter; E87.1 Hypo-osmolality and hyponatremia; E87.5 Hyperkalemia; D69.6 Thrombocytopenia, unspecified; E83.51 Hypocalcemia; E86.1 Hypovolemia; F32.9 Major depressive disorder, single episode, unspecified; I10 Essential (primary) hypertension; I82.611 Acute embolism and thrombosis of superficial veins of right upper extremity; J44.9 Chronic obstructive pulmonary disease, unspecified; K21.9 Gastro-esophageal reflux disease without esophagitis; N39.0 Urinary tract infection, site not specified; D64.9 Anemia, unspecified; E87.6 Hypokalemia; F10.239 Alcohol dependence with withdrawal, unspecified; G40.89 Other seizures; K72.90 Hepatic failure, unspecified without coma; E11.52 Type 2 diabetes mellitus with diabetic peripheral angiopathy with gangrene; Z51.5 Encounter for palliative care; Z66 Do not resuscitate; Z87.11 Personal history of peptic ulcer disease; G89.29 Other chronic pain; Y92.89 Other specified places as the place of occurrence of the external cause
CPT/HCPCS: 36415; 36600; 51702; 70450; 71045; 74176; 76937; 80048; 80053; 80202; 80307; 80320; 80329; 81001; 82010; 82040; 82150; 82306; 82550; 82570; 82607; 82728; 82746; 82805; 82962; 83010; 83036; 83540; 83550; 83605; 83615; 83690; 83735; 83880; 83970; 84100; 84132; 84156; 84300; 84443; 84478; 84484; 84550; 85007; 85025; 85027; 85362; 85384; 85610; 86850; 86880; 86900; 86901; 87040; 87070; 87077; 87081; 87086; 87186; 87205; 93005; 93306; 93971; 94002; 94003; 94640; 94644; 94761; 95819; 96361; 96374; 96375; 96376; A4618; A6257; C9113; G0378; J0330; J0610; J0690; J0696; J1815; J2185; J2248; J2250; J2704; J3480; J7060; J7131